=== PATIENT | male | born 1950 | race Caucasian/White ===

== ENCOUNTER → 2019-07-06 | Outpatient (CLI) | payer OTHER ==
--- NOTE | 2019-07-06 16:00 | MR ---
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 Patient motion somewhat limits the examination. FINDINGS: Diffusion weighted images demonstrate no evidence of a recent infarct or other diffusion ab normality. There is no extra-axial fluid collection. The ventricular system and cisternal spaces are symmetrically prominent compatible with age-related volume loss. There is question postsurgical royal ge of the right parietal-occipital region. Slightly inferior and deep to this there is an area of gli osis on T2 axial fat sat and FLAIR and axial fat sat image 19. Few scattered foci of T2/FLAIR hyperin tensity are seen within the periventricular and subcortical white matter, mild burden. These are most commonly on the basis of chronic microangiopathy. Midline structures demonstrate normal morphology. The craniocervical junction appears within normal limits. Post contrast images demonstrate no abnormal enhancement. The dural venous sinuses appear pa tent. The visualized sinuses demonstrate mild mucosal thickening in the ethmoid and left frontal sinu ses. Near complete opacification of the right mastoid air cells and partial opacification of the left mastoid air cells are seen. IMPRESSION: 1. No acute infarct, midline shift or mass effect. 2. Correlate for bilateral mastoiditis with point tenderness. Mild paranasal sinus disease. 3. No gross evidence of intracranial metastasis although patient motion limits the postcontrast image s.
== END | disposition home or self-care (01) ==
LOC: RADMRIMAIN 14:40
PROVIDERS: ATTEND Internal Medicine Hematology & Oncology
DX: C38.8 Malignant neoplasm of overlapping sites of heart, mediastinum and pleura (principal)
CPT/HCPCS: 70553; A9585

== ENCOUNTER → 2019-07-07 | Outpatient (CLI) | payer OTHER | END | disposition home or self-care (01) | LOC: LABWHC1 10:24 | PROVIDERS: ATTEND Internal Medicine Critical Care Medicine | DX: U07.1 COVID-19 (principal) | CPT/HCPCS: 87635 ==

== ENCOUNTER 2019-07-09 10:47 | Day surgery (SDC) | payer OTHER ==
[2019-07-06 12:26] VITALS: BMI 27.5
[~2019-07-09 10:47] MED LIST: HYDROmorphone 0.5 MG/0.5 ML SYRINGE IVP PRN; LACTATED RINGERS 1,000 ML IV SCH; LIDOCAINE 1% (10MG/ML) FOR IV START INTRADERMA PRN; MIDAZOLAM 2 MG/2 ML VIAL IV PRN
[2019-07-09 11:47] LABS: Glucose,Whole Blood 163 mg/dL (75-99)
[2019-07-09] MEDS ORDERED: LIDOCAINE VISCOUS 300 MG/15 ML CUP MUCOUS MEM ONE (12:00)
[2019-07-09] MEDS ORDERED: SODIUM CHLORIDE 0.9% 1,000 ML IV SCH (12:00)
[2019-07-09] MEDS ORDERED: ALBUTEROL NEB (CONC) 2.5 MG/0.5 ML INHALATION ONE (12:00)
[2019-07-09] MEDS ORDERED: LIDOCAINE 2% (PF) 20 MG/ML 5 ML VIAL INHALATION ONE (12:00)
[2019-07-09] MEDS ORDERED: SUCCINYLCHOLINE CHLORIDE 100 MG/5 ML SYR IV ONE (13:19)
[2019-07-09] MEDS ORDERED: PROPOFOL 10 MG/ML 20 ML VIAL IV ONE (13:19)
--- NOTE | 2019-07-09 13:58 | P.PCN ---
Date of Procedure: 07/09/19 Preoperative Diagnosis: Mediastinal mass Postoperative Diagnosis: Mediastinal mass Procedure(s) Performed: Flexible bronchoscopy, transbronchial needle aspirate Anesthesia: RAJESH Surgeon: Mya Oconnor Estimated Blood Loss (ml): 5 Pathology: other Condition: stable Disposition: same day Operative Findings: This procedure was done in the endoscopy suite. The procedure was done under general anesthesia. The patient was intubated and placed on mechanical ventilation. The procedure was done as the patient was being adequately oxygenated and ventilated. After achieving adequate anesthesia, the flexible bronchoscope was introduced through the orotracheal tube and was advanced into the lower trachea. The distal trachea was patent. It was extrinsically compressed along the anterior and the lateral wall causing some degree of narrowing in the order of 10-20%. Lisa and the right mainstem bronchus was also affected with this where the lisa was slightly anatomically distorted and the anterior wall of the right mainstem bronchus was also extrinsically compressed. A quick airway examination was done and the bronchoscope was moved into the bilateral mainstem bronchi, right upper lobe bronchus regular lobe bronchus and right lower lobe bronchus and the left upper lobe bronchus of the left lower lobe bronchus and all of these airways were visualized. No endobronchial tumors seen. The bronchoscope was then moved to the distal trachea and using a 19-gauge cytology and 21-gauge histology needles, transbronchial needle aspirate of the paratracheal mass was done at the level of the lisa and 1 gradually space above the lisa. Several passes were obtained. The samples were inspected by pathology at the bedside and it was lesion on. At that point, and after obtaining adequate samples, therapeutic airway suctioning was done and the bronchoscope was removed and the patient was extubated. The patient following that was transferred recovery for further he monitoring. The patient will be discharged home to be followed with me in the office on outpatient basis within the next few days.
[2019-07-09 14:12] VITALS: TEMP 98.4
[2019-07-09 14:35] VITALS: RESP 18
[2019-07-09 14:49] VITALS: BP 105/59; PULSE 83
== END 2019-07-09 15:11 | disposition home or self-care (01) ==
LOC: ORWHC2ENDO 10:47
PROVIDERS: ATTEND Internal Medicine Critical Care Medicine
DX: C38.3 Malignant neoplasm of mediastinum, part unspecified (principal); E11.9 Type 2 diabetes mellitus without complications; I10 Essential (primary) hypertension; F17.210 Nicotine dependence, cigarettes, uncomplicated; Z79.82 Long term (current) use of aspirin; Z79.84 Long term (current) use of oral hypoglycemic drugs; Z79.899 Other long term (current) drug therapy; Z90.89 Acquired absence of other organs; Z98.1 Arthrodesis status; Z96.651 Presence of right artificial knee joint; Z98.890 Other specified postprocedural states; Z80.6 Family history of leukemia
CPT/HCPCS: 94640; 88305; 88173; 88342; 88341; 31629; J0330; J2704; J2001; 31633

== ENCOUNTER → 2019-07-20 | Outpatient (CLI) | payer OTHER ==
--- NOTE | 2019-07-20 12:11 | PE ---
Nuclear medicine PET/CT HISTORY: C 34.11, initial Patient received 11 mCi F-18 FDG intravenously in delayed scanning was performed from the skull base to the mid thighs. Localization and attenuation correction CT scan was performed. Correlation to brain MR 07/06/2019 Neck and chest: There is a supraclavicular node on the right which shows associated hypermetabolic up take, SUV is 5.9. Small right pleural effusion is present. Large mediastinal mass is present, there i s an infiltrative appearance extending within the superior mediastinum, anterior mediastinum, retroca jim pretracheal mediastinum, subcarinal location and right hilar region. SUV is 6.9. There are dense coronary artery calcifications. There is a pericardial effusion measuring approximately 16 mm in ante rior posterior dimension. ABDOMEN: The right adrenal gland is enlarged measuring approximately 3 cm, there is associated hyperm etabolic uptake, SUV is 3.8. Diverticular changes are associated with the colon. Prostate is enlarged . No evident retroperitoneal adenopathy. Probable cortical cyst associated with the posterior aspect of the right kidney. No evident liver mass. There is no ascites. Osseous structures: At the costovertebral angle on the left there is a focus of hypermetabolic uptake within the vertebral body, SUV is 2.6. Left fourth anterior rib also shows hypermetabolic uptake, th ere is irregular contour present on axial image 92, SUV is 3.3. L1 vertebral body shows hypermetaboli c uptake anteriorly to the right of midline, SUV is 4, L2 also shows mild metabolic uptake SUV 3.4, L 5 shows hypermetabolic uptake, SUV 4.3. Mild uptake is present within the right femoral neck, SUV is 2.5. IMPRESSION: Metastatic disease to the bones is favored. Pleural and pericardial effusion, coronary ar rosa maria disease.
== END | disposition home or self-care (01) ==
LOC: RADPETMAIN 07:19
PROVIDERS: ATTEND Radiology Radiation Oncology
DX: J90 Pleural effusion, not elsewhere classified (principal); I31.3 Pericardial effusion (noninflammatory); I25.10 Atherosclerotic heart disease of native coronary artery without angina pectoris; C34.11 Malignant neoplasm of upper lobe, right bronchus or lung
CPT/HCPCS: 78815; A9552

== ENCOUNTER → 2019-08-03 | Outpatient (CLI) | payer OTHER ==
--- NOTE | 2019-08-03 10:31 | MR ---
EXAMINATION TYPE: MR lumbar spine wo/w con DATE OF EXAM: 08/03/2019 COMPARISON: Prior PET/CT 07/20/2019 HISTORY: Back Pain, Hx of Lung CA. PET CT showed Abnormality in Lumbar area. Prior Back Surgery in 72 TECHNIQUE: Multiplanar, multisequence images of the lumbar spine were acquired utilizing [address] gadolinium contrast. There is abnormal signal involving the L5 vertebral body diffusely, the bulk of the L2 vertebral body , L1 vertebral body and T12 vertebral body which shows intermediate signal on T1-weighted images and lower signal on T2-weighted sequences. Some mild enhancement is present following contrast administra tion. There is multilevel spondylosis. Loss of disc height signal is greatest at L3-4, L2-3 and L1-2. Anterolisthesis grade 1 L5-S1, there is bilateral spondylolysis at L5. Vacuum phenomenon is present at L5-S1 with some loss of disc height and signal. Endplate discogenic marrow signal changes are also present. L1-L2: Normal disc appearance without desiccation. No herniation, protrusion or disc bulging. No c anal stenosis is present. Foramina are patent bilaterally. L2-L3: There is a posterior broad-based disc bulge present. There is extension laterally to cause doyle e foraminal encroachment on the right. Some hypertrophic changes are present at the facets causing so me minimal posterior mass effect on the thecal sac. No significant spinal stenosis. Small area of anthony or causes anterolateral mass effect on the thecal sac. L3-L4: Normal disc appearance without desiccation. No herniation, protrusion or disc bulging. No ca nal stenosis is present. Foramina are patent bilaterally. Facet arthropathy change with hypertrophy ligamentum flavum causes some posterior lateral mass effect on the thecal sac. Circumferential steam shovel runner ior disc bulge extends laterally and encroaches somewhat on the neural foraminal greater on the left. L4-L5: Normal disc appearance without desiccation. No herniation, protrusion or disc bulging. No ca nal stenosis is present. Foramina are patent bilaterally. There is some facet arthropathy change. L5-S1: Listhesis contributes to cause some bilateral foraminal encroachment. There is hypertrophic ch carlos of the facets. No significant spinal stenosis or evident disc herniation. Suspect postop changes or ankylosis, bony fusion of the spinous process level may be present posteriorly. There is involvem ent of tumor involving the posterior elements. Lumbar segments are intact. No paraspinal masses are identified. Conus medullaris has a normal appe arance. IMPRESSION: Metastatic disease. Degenerative disc disease, facet arthropathy, spondylolysis and spond ylolisthesis, multilevel foraminal encroachment.
== END | disposition home or self-care (01) ==
LOC: RADMRIMAIN 09:24
PROVIDERS: ATTEND Radiology Radiation Oncology
DX: M51.36 Other intervertebral disc degeneration, lumbar region (principal); M43.16 Spondylolisthesis, lumbar region; M46.96 Unspecified inflammatory spondylopathy, lumbar region; C77.9 Secondary and unspecified malignant neoplasm of lymph node, unspecified; C34.11 Malignant neoplasm of upper lobe, right bronchus or lung
CPT/HCPCS: 72158; A9585

== ENCOUNTER → 2019-08-06 | Outpatient (CLI) | payer OTHER ==
--- NOTE | 2019-08-06 10:12 | US ---
EXAMINATION TYPE: US venous doppler duplex UE RT DATE OF EXAM: 08/06/2019 COMPARISON: NONE CLINICAL HISTORY: 69-year-old male R22.31swelling right arm, M79.621 pain right arm. Right arm pain x couple days, patient on blood thinners. TECHNIQUE: Grayscale, color doppler, spectral doppler imaging performed of the deep veins of the rig ht upper extremity. FINDINGS: SIDE PERFORMED: Right There is normal flow, compressibility and vascular waveforms. Right Arm: Appears negative for DVT IMPRESSION: No evidence for DVT within the right upper extremity.
== END | disposition home or self-care (01) ==
LOC: RADUSWWP 09:39
PROVIDERS: ATTEND Radiology Radiation Oncology
DX: M79.621 Pain in right upper arm (principal); R22.31 Localized swelling, mass and lump, right upper limb; C34.11 Malignant neoplasm of upper lobe, right bronchus or lung; C77.9 Secondary and unspecified malignant neoplasm of lymph node, unspecified

== ENCOUNTER → 2019-09-05 | Outpatient (CLI) | payer OTHER ==
[2019-09-05 11:50] LABS: African American GFR (CKD) >90 (>60 ml/min/1.73 sqM); Blood Urea Nitrogen 15 mg/dL (9-20); Non-African American GFR(CKD) >90 (>60 ml/min/1.73 sqM)
--- NOTE | 2019-09-05 14:20 | CT ---
EXAMINATION TYPE: CT chest w con DATE OF EXAM: 09/05/2019 COMPARISON: PET/CT 07/20/2019, CT 06/29/2019 from outside institution HISTORY: Follow up Lung cancer CT DLP: 301.1 mGycm Automated exposure control for dose reduction was used. CONTRAST: CT scan of the chest is performed with IV Contrast, patient injected with 100 mL of Isovue 300. FINDINGS: LUNGS: The lungs are grossly clear, there is no concerning parenchymal mass or nodule identified. T here is no pleural effusion or pneumothorax seen. The tracheobronchial tree is patent. MEDIASTINUM: There is confluent density in the superior mediastinum, mass effect on the superior vena cava as the abnormal density extends inferiorly to the retrocaval pretracheal region, there is impro vement in the abnormal soft tissue density in the subcarinal location and right paratracheal location as compared to prior exam, volume is decreased. There are coronary calcifications. AORTA: No additional significant abnormality is seen. OTHER: Right adrenal mass is again noted and show similar size. There is a sclerotic focus within the T1 vertebral body, irregular appearance to the left fourth rib anteriorly is again seen IMPRESSION: The patient's mediastinal mass has decreased in volume as compared to prior exam. Metast atic disease to bone.
== END | disposition home or self-care (01) ==
LOC: RADCTMAIN 11:13
PROVIDERS: ATTEND Internal Medicine Hematology & Oncology
DX: R22.2 Localized swelling, mass and lump, trunk (principal); C79.51 Secondary malignant neoplasm of bone; C34.91 Malignant neoplasm of unspecified part of right bronchus or lung
CPT/HCPCS: 82565; 84520; 71260; 36415; Q9967

== ENCOUNTER 2019-09-14 08:48 | Inpatient (IN) | payer MEDICARE ==
[2019-09-14] MEDS ORDERED: SODIUM CHLORIDE 0.9% 1,000 ML IV STA ×2 (09:01)
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
[2019-09-14 10:08] LABS: ALT 10 U/L (4-49); AST 19 U/L (17-59); African American GFR (CKD) >90 (>60 ml/min/1.73 sqM); Albumin 3.3 g/dL (3.5-5.0); Alkaline Phosphatase 87 U/L (38-126); Anion Gap 10 mmol/L; Blood Urea Nitrogen 12 mg/dL (9-20); Carbon Dioxide 33 mmol/L (22-30); Chloride 93 mmol/L (98-107); Glucose 60 mg/dL (74-99); Non-African American GFR(CKD) >90 (>60 ml/min/1.73 sqM); Sodium 136 mmol/L (137-145); Total Bilirubin 0.6 mg/dL (0.2-1.3); Total Protein 5.7 g/dL (6.3-8.2)
[2019-09-14 10:13] LABS: HCT 26.9 % (39.0-53.0); HGB 9.4 gm/dL (13.0-17.5); INR 1.1 (<1.2); MCH 32.8 pg (25.0-35.0); MCHC 34.9 g/dL (31.0-37.0); MCV 94.2 fL (80.0-100.0); Mean Platelet Volume 8.8; Partial Thromboplastin Time 25.7 sec (22.0-30.0); Platelet Count 228 k/uL (150-450); RBC 2.86 m/uL (4.30-5.90); RDW 15.1 % (11.5-15.5); WBC 15.4 k/uL (3.8-10.6)
[2019-09-14 10:19] LABS: Calcium 5.9 mg/dL (8.4-10.2); Magnesium 0.4 mg/dL (1.6-2.3); Potassium 2.2 mmol/L (3.5-5.1)
[2019-09-14] MEDS ORDERED: Potassium Replacement Protocol 1 EACH MISC MISCELLANE PRN (10:22)
[2019-09-14] MEDS ORDERED: POTASSIUM CHLORIDE ER 20 MEQ TAB.ER PO STA (10:23)
[2019-09-14] MEDS ORDERED: CALCIUM GLUCONATE 1 GM in SODIUM CHLORIDE 0.9% 100 ML IVPB ONE (10:25)
[2019-09-14 10:40] LABS: Band Neutrophils % 2 %; Basophils # (M) 0.15 k/uL (0-0.2); Eosinophils # (M) 0.15 k/uL (0-0.7); Lymphocytes # (M) 0.31 k/uL (1.0-4.8); Metamyelocytes # (M) 0.31 k/uL (0); Metamyelocytes % 2 %; Monocytes # (M) 0.77 k/uL (0-1.0); Myelocytes # (M) 0.31 k/uL (0); Myelocytes % 2 %; Neutrophils % (M) 87 %; Nucleated Red Blood Cells 0 /100 WBC (0-0); Total Cells Counted 200
[2019-09-14] MEDS ORDERED: ONDANSETRON 4 MG/2 ML VIAL IVP PRN (11:10)
[2019-09-14] MEDS ORDERED: ACETAMINOPHEN TAB 325 MG TAB PO PRN (11:10)
[2019-09-14] MEDS ORDERED: MORPHINE SULFATE 4 MG/ML SYRINGE IV PRN (11:10)
[2019-09-14] MEDS ORDERED: NALOXONE 0.4 MG/ML 1 ML VIAL IV PRN (11:10)
[2019-09-14] MEDS ORDERED: IBUPROFEN 400 MG TAB PO PRN (11:10)
[2019-09-14] MEDS: MAGNESIUM SULFATE-D5W PMX 1 GM in DEXTROSE/WATER 1 100ML.BAG IVPB SCH ×2 (11:12→14:07)
[2019-09-14] MEDS: POTASSIUM CHLORIDE 10 MEQ in WATER FOR INJECTION 1 100ML.BAG IVPB SCH ×2 (12:04→14:15)
[2019-09-14] MEDS ORDERED: ONDANSETRON 4 MG TAB PO PRN (12:51)
[2019-09-14] MEDS ORDERED: LORazepam 1 MG TAB PO PRN (12:51)
[2019-09-14] MEDS ORDERED: MAG HYDROX/AL HYDROX/SIMETH 30 ML CUP PO PRN (12:55)
[2019-09-14] MEDS ORDERED: LACTULOSE 20 GM/30 ML CUP PO PRN (12:55)
[2019-09-14] MEDS ORDERED: TEMAZEPAM 15 MG CAP PO PRN (12:55)
[2019-09-14] MEDS ORDERED: MAGNESIUM HYDROXIDE 2,400 MG/10 ML CUP PO PRN (12:55)
[2019-09-14] MEDS ORDERED: NA PHOS,M-B/NA PHOS,DI-BA 133 ML ENEMA RECTAL PRN (12:55)
[2019-09-14] MEDS ORDERED: ALPRAZolam 0.25 MG TAB PO PRN (12:55)
[2019-09-14] MEDS ORDERED: CALCIUM CARBONATE 500 MG CHEWABLE PO PRN (12:55)
[2019-09-14] MEDS: POTASSIUM CHLORIDE ER 20 MEQ TAB.ER PO SCH ×5 (14:07→23:47)
[2019-09-14] MEDS: MAGNESIUM OXIDE 400 MG TAB PO SCH ×3 (14:07→21:25)
[2019-09-14] MEDS: ENOXAPARIN 40 MG/0.4 ML SYRINGE SQ SCH (14:07)
[2019-09-14] MEDS: SODIUM CHLORIDE 0.9% 1,000 ML IV SCH ×2 (14:13→23:51)
[2019-09-14 17:14] LABS: Glucose,Whole Blood 102 mg/dL (75-99)
[2019-09-14] MEDS: HYDROcodone/APAP 5-325MG 1 EACH TAB PO PRN (19:32)
[2019-09-14 19:41] LABS: Appearance,Urine Clear (Clear); Bilirubin,Urine Negative (Negative); Blood,Urine Negative (Negative); Color,Urine Light Yellow; Glucose,Urine (UA) 4+ (Negative); Ketones,Urine Negative (Negative); Leukocyte Esterase,Urine Negative (Negative); Nitrite,Urine Negative (Negative); PH, Urine 6.5 (5.0-8.0); Protein,Urine Trace (Negative); Urobilinogen,Urine <2.0 mg/dL (<2.0)
--- NOTE | 2019-09-14 20:10 | P.HPIM ---
History of Present Illness H&P Date: 09/14/19 Chief Complaint: Abnormal electrolytes History of presenting complaint: This is a very pleasant 69-year-old patient of Dr. Celia Duarte. Chronic stable medical conditions include coronary artery disease with stent, diabetes, hypertension, hyperlipidemia. 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 Patient is computed radiation [address] Stuart Abreu. Patient getting chemotherapy 3 times a week. Patient's appetite is gone down. Has lost about 50 pounds of weight. Bowel movements are okay. Lap hyun done as an outpatient revealed multiple abnormalities including hypokalemia, hypomagnesemia hypocalcemia hence he was admitted to the ER. 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 Patient has done drugs including cocaine and LSD, he quit them 20 years ago Physical examination: VITAL SIGNS: 98, 85, 18, 135/81, 99% room air GENERAL: BMI 21.9, sitting up in bed, tired. EYES: Pupils equal. Conjunctiva palel. HEENT: External appearance of nose and ears normal, oral cavity grossly hortensia, decreased scalp hair l. NECK: JVD not raised; masses not palpable. HEART: First and second heart sounds are normal; no edema. LUNGS: Respiratory rate increased, decreased breath sounds. ABDOMEN: Soft, nontender, liver spleen not palpable, no masses palpable. PSYCH: Alert and oriented x3; mood and affect a bit tiredl. MUSCULOSKELETAL-evidence of arthritis in the hand NEUROLOGICAL: Cranial nerves grossly intact; no facial asymmetry, power and sensation grossly intact. LYMPHATICS: No lymph nodes palpable in the axilla and neck INVESTIGATIONS, reviewed in the clinical context: White count 15.4 hemoglobin 9.4 platelets 228 increased neutrophils potassium 2.2 creatinine 0.71 glucose 60 5.9 Admission 0.4 Albumin 3.3 EKG tracing personally reviewed by ia-some nonspecific changes Assessment: -Multiple levels showed abnormalities likely from underlying chemotherapy -Severe hypokalemia -Severe hypomagnesemia Hypocalcemia -Coronary artery disease with stent -Diabetes mellitus type 2 -Hyperlipidemia -Essential hypertension -Small cell lung cancer with SVC compression treated with chemotherapy and fin ished a course of radiation 3 weeks ago -Primary osteoarthritis -Chronic nicotine dependence patient cigarette smoker Plan: Patient electrolytes are being replaced. Repeat follow-up levels. Home me dications resumed. Given a nicotine patch. Care was discussed with the patient. Question were answered. Lovenox for DVT prophylaxis Past Medical History Past Medical History: Coronary Artery Disease (CAD), Cancer, Chest Pain / Angina, Diabetes Mellitus, Hyperlipidemia, Hypertension, Myocardial Infarction (ND) Additional Past Medical History / Comment(s): Small cell lung cancer/mediastinal mass with SVC compression-treated with chemotherapy in July 2019 and radiation just completed about 3 weeks ago-pt states he is to restart chemo in one week, NIDDM type II, arthritis in bilateral hands Last Myocardial Infarction Date:: 2013 History of Any Multi-Drug Resistant Organisms: None Reported Past Surgical History: Back Surgery, Heart Catheterization With Stent, Joint Replacement, Tonsillectomy Additional Past Surgical History / Comment(s): Spinal fusion in 1970s, lumbar epidural injections, R shoulder rotator cuff repair, R total knee arthroplasty, skull plate d/t injury, PCIs with stents, colonoscopy, 07/09/19 bronch with bi opsy. Past Anesthesia/Blood Transfusion Reactions: No Reported Reaction Date of Last Stent Placement:: 2013 Smoking Status: Current every day smoker - Past Family History Father Family Medical History: Cancer Additional Family Medical History / Comment(s): AT 84. MULTIPLE MYELOMA. Mother Family Medical History: Dementia Additional Family Medical History / Comment(s): AT AGE 85 Brother(s) Family Medical History: Cancer Additional Family Medical History / Comment(s): LEUKEMIA. Medications and Allergies Home Medications Medication Instructions Recorded Confirmed Type Clopidogrel [Plavix] 75 mg PO DAILY 01/11/14 09/14/19 History Lisinopril [Zestril] 10 mg PO DAILY 01/11/14 09/14/19 History glipiZIDE [Glucotrol] 10 mg PO BID 01/11/14 09/14/19 History Aspirin [Adult Low Dose Aspirin EC] 81 mg PO DAILY 07/06/19 09/14/19 History Atorvastatin [Lipitor] 40 mg PO HS 07/06/19 09/14/19 History Dapagliflozin Propanediol [Farxiga] 10 mg PO DAILY 07/06/19 09/14/19 History Fish Oil/Dha/Epa [Fish Oil 1,200 4,800 mg PO DAILY 07/06/19 09/14/19 History mg Fish Oil] Metoprolol Tartrate [Lopressor] 50 mg PO HS 07/06/19 09/14/19 History metFORMIN HCL 1,000 mg PO BID 07/06/19 09/14/19 History sitaGLIPtin [Januvia] 100 mg PO DAILY 07/06/19 09/14/19 History LORazepam [Ativan] 1 mg PO TID PRN 09/14/19 09/14/19 History Ondansetron [Zofran] 4 mg PO Q8HR PRN 09/14/19 09/14/19 History Sennosides/Docusate Sodium [Senna 1 - 2 tab PO BID PRN 09/14/19 09/14/19 History Plus 8.6-50 mg Softgel] Zolpidem Tartrate [Ambien] 10 mg PO HS 09/14/19 09/14/19 History Allergies Allergy/AdvReac Type Severity Reaction Status Date / Time No Known Allergies Allergy Verified 09/14/19 09:32 Physical Exam Vitals: Vital Signs Temp Pulse Resp BP Pulse Ox 09/14/19 08:50 98.0 F 85 18 135/81 99 Intake and Output 09/13/19 09/14/19 09/14/19 22:59 06:59 14:59 Other: Weight 81.647 kg Results CBC & Chem 7: 09/14/19 09:31 09/14/19 09:31 Labs: Abnormal Lab Results - Last 24 Hours (Table) 09/14/19 09/14/19 Range/Units 09:31 09:31 WBC 15.4 H (3.8-10.6) k/uL RBC 2.86 L (4.30-5.90) m/uL Hgb 9.4 L (13.0-17.5) gm/dL Hct 26.9 L (39.0-53.0) % Neutrophils # (Manual) 13.70 H (1.3-7.7) k/uL Lymphocytes # (Manual) 0.31 L (1.0-4.8) k/uL Metamyelocytes # (Man) 0.31 H (0) k/uL Myelocytes # (Manual) 0.31 H (0) k/uL Sodium 136 L (137-145) mmol/L Potassium 2.2 L* (3.5-5.1) mmol/L Chloride 93 L (98-107) mmol/L Carbon Dioxide 33 H (22-30) mmol/L Glucose 60 L (74-99) mg/dL Calcium 5.9 L* (8.4-10.2) mg/dL Magnesium 0.4 L* (1.6-2.3) mg/dL Total Protein 5.7 L (6.3-8.2) g/dL Albumin 3.3 L (3.5-5.0) g/dL Thrombosis Risk Factor Assmnt - Choose All That Apply Any of the Below Risk Factors Present?: Yes Other Risk Factors: Yes Each Risk Factor Represents 2 Points: Age 61-74 years, Malignancy Other congenital or acquired thrombophilia - If yes, enter type in comment: No Thrombosis Risk Factor Assessment Total Risk Factor Score: 4 Thrombosis Risk Factor Assessment Level: Moderate Risk
[2019-09-14 20:40] LABS: Magnesium 0.8 mg/dL (1.6-2.3); Potassium 2.7 mmol/L (3.5-5.1)
[2019-09-14 20:47] LABS: Glucose,Whole Blood 109 mg/dL (75-99)
[2019-09-14] MEDS ORDERED: METOPROLOL TARTRATE 50 MG TAB PO SCH (21:00)
[2019-09-14] MEDS ORDERED: ATORVASTATIN 40 MG TAB PO SCH (21:00)
[2019-09-14] MEDS ORDERED: ZOLPIDEM 10 MG TAB PO SCH (21:00)
[2019-09-14] MEDS ORDERED: MAGNESIUM SULFATE-D5W PMX 1 GM in DEXTROSE/WATER 1 100ML.BAG IVPB ONE (21:01)
[2019-09-14] MEDS: glipiZIDE 10 MG TAB PO SCH (21:23)
[2019-09-14] MEDS: metFORMIN 500 MG TAB PO SCH (21:23)
[2019-09-14] MEDS: CALCIUM CARBONATE LIQUID 500 MG/5 ML CUP PO SCH (21:23)
[2019-09-15] MEDS: HYDROcodone/APAP 5-325MG 1 EACH TAB PO PRN (01:10)
[2019-09-15] MEDS: POTASSIUM CHLORIDE ER 20 MEQ TAB.ER PO SCH ×3 (02:25→04:36)
[2019-09-15 07:25] LABS: Glucose,Whole Blood 106 mg/dL (75-99)
[2019-09-15 07:33] LABS: African American GFR (CKD) >90 (>60 ml/min/1.73 sqM); Anion Gap 6 mmol/L; Blood Urea Nitrogen 7 mg/dL (9-20); Carbon Dioxide 29 mmol/L (22-30); Chloride 101 mmol/L (98-107); Glucose 78 mg/dL (74-99); Non-African American GFR(CKD) >90 (>60 ml/min/1.73 sqM); Potassium 3.8 mmol/L (3.5-5.1); Sodium 136 mmol/L (137-145)
[2019-09-15] MEDS ORDERED: POTASSIUM CHLORIDE ER 20 MEQ TAB.ER PO STA (07:49)
[2019-09-15] MEDS: ENOXAPARIN 40 MG/0.4 ML SYRINGE SQ SCH (08:32)
[2019-09-15] MEDS: metFORMIN 500 MG TAB PO SCH (08:33)
[2019-09-15] MEDS: MAGNESIUM OXIDE 400 MG TAB PO SCH (08:33)
[2019-09-15] MEDS: glipiZIDE 10 MG TAB PO SCH (08:33)
[2019-09-15] MEDS: SODIUM CHLORIDE 0.9% 1,000 ML IV SCH (08:43)
[2019-09-15] MEDS: CALCIUM CARBONATE LIQUID 500 MG/5 ML CUP PO SCH ×2 (08:45→13:31)
[2019-09-15] MEDS ORDERED: ASPIRIN 81 MG PO SCH (09:00)
[2019-09-15] MEDS ORDERED: LISINOPRIL 10 MG TAB PO SCH (09:00)
[2019-09-15] MEDS ORDERED: CLOPIDOGREL 75 MG TAB PO SCH (09:00)
[2019-09-15] MEDS ORDERED: LINAGLIPTIN 5 MG TABLET PO SCH (09:00)
[2019-09-15] MEDS ORDERED: NON FORMULARY DRUG (Dapagliflozin Propanediol [Farxiga] 10 MG) PO SCH (09:00)
[2019-09-15] MEDS ORDERED: CALCIUM GLUCONATE 1 GM in SODIUM CHLORIDE 0.9% 100 ML IVPB ONE (09:00)
[2019-09-15] MEDS ORDERED: MAGNESIUM SULFATE MG 6,000 MG in SODIUM CHLORIDE 0.9% 50 ML IVPB ONE (11:28)
[2019-09-15] MEDS: MAGNESIUM SULFATE-D5W PMX 1 GM in DEXTROSE/WATER 1 100ML.BAG IVPB SCH ×2 (11:49→13:39)
[2019-09-15 12:49] LABS: Glucose,Whole Blood 204 mg/dL (75-99)
[2019-09-15 13:12] VITALS: BP 162/80; PULSE 83; RESP 16; TEMP 97.5
[2019-09-15 14:09] VITALS: BMI 21.9
--- NOTE | 2019-09-15 23:32 | P.DS ---
Providers Date of admission: 09/14/19 10:54 Expected date of discharge: 09/15/19 Attending physician: Raphael Carrington Primary care physician: Sruthi Duarte [facility] Course: Chief Complaint: Abnormal electrolytes History of presenting complaint: This is a very pleasant 69-year-old patient of Dr. Celia Duarte. Chronic stable medical conditions include coronary artery disease with stent, diabetes, hypertension, hyperlipidemia. 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 Patient is computed radiation [address] Stuart Abreu. Patient getting chemotherapy 3 times a week. Patient's appetite is gone down. Has lost about 50 pounds of weight. Bowel movements are okay. Labs done as an outpatient revealed multiple abnormalities including hypokalemia, hypomagnesemia hypocalcemia hence he was admitted to the ER. Correction was doing a potassium calcium and magnesium. Today-patient did much better. Discussed with him. Very eager to go home. Physical examination: VITAL SIGNS: 97.5, 83, 16, 162/80, 97% room air GENERAL: Sitting up, comfortable EYES: Pupils equal. Conjunctiva palel. HEENT: External appearance of nose and ears normal, oral cavity grossly hortensia, decreased scalp hair l. NECK: JVD not raised; masses not palpable. HEART: First and second heart sounds are normal; no edema. LUNGS: Respiratory rate increased, decreased breath sounds. ABDOMEN: Soft, nontender, liver spleen not palpable, no masses palpable. PSYCH: Alert and oriented x3; mood and affect a bit tiredl. MUSCULOSKELETAL-evidence of arthritis in the hand INVESTIGATIONS, reviewed in the clinical context: Potassium 3.8 creatinine 0.62 magnesium 1.0 Previous testing White count 15.4 hemoglobin 9.4 platelets 228 increased neutrophils potassium 2.2 creatinine 0.71 glucose 60 5.9 Admission 0.4 Albumin 3.3 EKG tracing personally reviewed by me-some nonspecific changes Assessment: -Severe hypokalemia -Severe hypomagnesemia -Hypocalcemia -Coronary artery disease with stent -Diabetes mellitus type 2 -Hyperlipidemia -Essential hypertension -Small cell lung cancer with SVC compression treated with chemotherapy and finished a course of radiation 3 weeks ago -Primary osteoarthritis -Chronic nicotine dependence patient cigarette smoker Disposition: Home Labs: BMP, magnesium-3 days Patient Condition at Discharge: Stable Plan - Discharge Summary Discharge Rx Participant: No New Discharge Prescriptions: New Calcium Carbonate/Vitamin D3 [Calcium 500-Vit D3 200 Tablet] 1 each PO DAILY #30 tablet Magnesium Oxide [Mag-Ox] 250 mg PO TID #30 tablet Continue glipiZIDE [Glucotrol] 10 mg PO BID Lisinopril [Zestril] 10 mg PO DAILY Clopidogrel [Plavix] 75 mg PO DAILY Metoprolol Tartrate [Lopressor] 50 mg PO HS sitaGLIPtin [Januvia] 100 mg PO DAILY metFORMIN HCL 1,000 mg PO BID Atorvastatin [Lipitor] 40 mg PO HS Fish Oil/Dha/Epa [Fish Oil 1,200 mg Fish Oil] 4,800 mg PO DAILY Dapagliflozin Propanediol [Farxiga] 10 mg PO DAILY Aspirin [Adult Low Dose Aspirin EC] 81 mg PO DAILY LORazepam [Ativan] 1 mg PO TID PRN PRN Reason: Nausea Zolpidem Tartrate [Ambien] 10 mg PO HS Sennosides/Docusate Sodium [Senna Plus 8.6-50 mg Softgel] 1 - 2 tab PO BID PRN PRN Reason: Constipation Ondansetron [Zofran] 4 mg PO Q8HR PRN PRN Reason: Nausea Discharge Medication List Clopidogrel [Plavix] 75 mg PO DAILY 01/11/14 [History] Lisinopril [Zestril] 10 mg PO DAILY 01/11/14 [History] glipiZIDE [Glucotrol] 10 mg PO BID 01/11/14 [History] Aspirin [Adult Low Dose Aspirin EC] 81 mg PO DAILY 07/06/19 [History] Atorvastatin [Lipitor] 40 mg PO HS 07/06/19 [History] Dapagliflozin Propanediol [Farxiga] 10 mg PO DAILY 07/06/19 [History] Fish Oil/Dha/Epa [Fish Oil 1,200 mg Fish Oil] 4,800 mg PO DAILY 07/06/19 [Hist ory] Metoprolol Tartrate [Lopressor] 50 mg PO HS 07/06/19 [History] metFORMIN HCL 1,000 mg PO BID 07/06/19 [History] sitaGLIPtin [Januvia] 100 mg PO DAILY 07/06/19 [History] LORazepam [Ativan] 1 mg PO TID PRN 09/14/19 [History] Ondansetron [Zofran] 4 mg PO Q8HR PRN 09/14/19 [History] Sennosides/Docusate Sodium [Senna Plus 8.6-50 mg Softgel] 1 - 2 tab PO BID PRN 09/14/19 [History] Zolpidem Tartrate [Ambien] 10 mg PO HS 09/14/19 [History] Calcium Carbonate/Vitamin D3 [Calcium 500-Vit D3 200 Tablet] 1 each PO DAILY #30 tablet 09/15/19 [Rx] Magnesium Oxide [Mag-Ox] 250 mg PO TID #30 tablet 09/15/19 [Rx] Follow up Appointment(s)/Referral(s): Luis Patrick MD [STAFF PHYSICIAN] - 09/18/19 Sruthi Duarte MD [Primary Care Provider] - 1-2 days Patient Instructions/Handouts: Calcium/Vitamin D Supplement (By mouth), Magnesium Oxide (By mouth) Activity/Diet/Wound Care/Special Instructions: bmp/magnesium (labwork) - 3 days Diet as tolerated Activity as tolerated Discharge Disposition: HOME SELF-CARE
== END 2019-09-15 14:26 | disposition home or self-care (01) | DRG 641 ==
LOC: EC 08:48 → 5NMEDONC 10:54
PROVIDERS: ADMIT Hospitalist; ATTEND Hospitalist
DX: E87.6 Hypokalemia (principal); C34.90 Malignant neoplasm of unspecified part of unspecified bronchus or lung; Z11.59 Encounter for screening for other viral diseases; E83.51 Hypocalcemia; E11.9 Type 2 diabetes mellitus without complications; E83.42 Hypomagnesemia; I25.10 Atherosclerotic heart disease of native coronary artery without angina pectoris; E78.5 Hyperlipidemia, unspecified; I10 Essential (primary) hypertension; F17.210 Nicotine dependence, cigarettes, uncomplicated; H91.90 Unspecified hearing loss, unspecified ear; M19.049 Primary osteoarthritis, unspecified hand; R11.0 Nausea; K59.00 Constipation, unspecified; T45.1X5A Adverse effect of antineoplastic and immunosuppressive drugs, initial encounter; I25.2 Old myocardial infarction; Z79.02 Long term (current) use of antithrombotics/antiplatelets; Z79.84 Long term (current) use of oral hypoglycemic drugs; Z79.899 Other long term (current) drug therapy; Z79.82 Long term (current) use of aspirin; Z95.5 Presence of coronary angioplasty implant and graft; Z92.3 Personal history of irradiation; Z98.890 Other specified postprocedural states; Z98.1 Arthrodesis status; Z96.651 Presence of right artificial knee joint; Z82.0 Family history of epilepsy and other diseases of the nervous system; Z80.6 Family history of leukemia; Z80.7 Family history of other malignant neoplasms of lymphoid, hematopoietic and related tissues
CPT/HCPCS: 36415; 80048; 80053; 81003; 83735; 84132; 85025; 85610; 85730; 93005; 96361; 96365; 96367; 96368; 99285

== ENCOUNTER → 2019-11-08 | Outpatient (CLI) | payer OTHER, MEDICARE ==
--- NOTE | 2019-11-09 08:39 | MR ---
EXAMINATION TYPE: MR brain wo/w con DATE OF EXAM: 11/08/2019 COMPARISON: 07/06/[address] 07/20/2019 HISTORY: 69-year-old male C34.11, lung Ca TECHNIQUE: Multiplanar, multisequence images of the brain and brainstem were acquired before and aft er administration of 9 mL IV Gadavist. Diffusion weighted imaging is performed. FINDINGS: No evidence for acute infarction, hemorrhage, mass effect, midline shift, herniation, effacement of b mohan cisterns, or extra-axial fluid collection. Some focal 8 x 3 mm dural thickening along the left lateral frontal convexity with corresponding homo geneous enhancement, in retrospect, it remains unchanged from 07/06/2019. Refer to axial image 57a and coronal image 29. Sagittal image 16. Otherwise, no abnormal intracranial enhancing lesions. Dural venous sinuses are patent. Mild generalized cerebral cortical atrophy, unchanged. No hydrocephalus. Major intracranial flow voids are intact. T2/FLAIR weighted sequences show mild scattered burden of right white matter foci in the periventricu lar and deep white matter regions of the cerebral hemispheres. There is also some cortical and subcor tical increased signal at the posterior right parietal lobe underlying some calvarial irregularity, p robable prior craniotomy flap and surgery. Findings are unchanged. Midline structures demonstrate normal morphology. The craniocervical junction is normal. Leftward nasal septal deviation. Moderate to severe mucosal thickening left ethmoid air cells and lef t frontal sinus. Trace mucosal thickening left maxillary sinus. Residual small amount of aerated mast oid air cells, significantly improved from 07/06/2019. Globes are intact. There is some irregularity of the right parietal calvarium, unchanged from prior. IMPRESSION: 1. Focal extra-axial thickening measuring 8 x 3 mm along the left lateral frontal convexity with jere esponding enhancement remains unchanged from 07/06/2019. A small incidental meningioma is favored over a solitary dural metastasis. Additional follow-up as indicated. 2. Stable exam with prior right parietal craniotomy flap and some mild underlying cortical gliosis. M ild scattered burden of chronic small vessel ischemic disease. No other evidence for intracranial met astases. 3. Continued moderate to severe left ethmoid and left frontal sinus disease. 4. Significant improvement in the patient's bilateral mastoid disease. Some minimal opacification rem ains in the right mastoid air cells.
== END | disposition home or self-care (01) ==
LOC: RADMRIMAIN 10:13
PROVIDERS: ATTEND Radiology Radiation Oncology
DX: I67.82 Cerebral ischemia (principal); G93.89 Other specified disorders of brain; C79.51 Secondary malignant neoplasm of bone; C34.11 Malignant neoplasm of upper lobe, right bronchus or lung; C77.9 Secondary and unspecified malignant neoplasm of lymph node, unspecified; Z98.890 Other specified postprocedural states
CPT/HCPCS: 70553; A9585

== ENCOUNTER → 2019-11-09 | Outpatient (CLI) | payer OTHER, MEDICARE ==
[2019-11-09 10:07] LABS: African American GFR (CKD) >90 (>60 ml/min/1.73 sqM); Blood Urea Nitrogen 15 mg/dL (9-20); Non-African American GFR(CKD) >90 (>60 ml/min/1.73 sqM)
--- NOTE | 2019-11-12 08:55 | CT ---
EXAMINATION TYPE: CT ChestAbdPelvis w con DATE OF EXAM: 11/09/2019 COMPARISON: CT chest 09/05/2019. PET/CT 07/20/2019. Outside institution 06/29/[address] HISTORY: follow up lung ca CT DLP: 697.7 mGycm Automated exposure control for dose reduction was used. CONTRAST: CT scan of the chest, abdomen and pelvis is performed with Oral Contrast and with IV Contrast, patien t injected with 100 mL of Isovue 300. FINDINGS: LUNGS: The lungs are grossly clear, there is no concerning parenchymal mass or nodule identified. Th ere are emphysematous changes of the bilateral lung apices. There is no pleural effusion or pneumotho rax seen. The tracheobronchial tree is patent. MEDIASTINUM: There is interval decrease in size of the mediastinal soft tissue mass versus 09/05/2019 a nd 07/20/2019. The superior aspect of the soft tissue component measures approximately 8.8 x 2.9 cm (3 :20), previously 9.7 x 4.0 cm on 09/05/2019 comparison. No hilar lymphadenopathy. Cardiac size normal. Calcified coronary artery disease. No pericardial effusion. No thoracic aortic aneurysm. OTHER: No axillary lymphadenopathy. The right supraclavicular lymph node which had demonstrated hype rmetabolic activity on 07/20/[address] comparison demonstrates interval decrease in size measuring 6 x 4 mm (3:5), previously measuring 9 x 7 mm on 09/05/2019 comparison, and 20 x 14 mm on 07/20/2019 comp arison. LIVER: Normal. BILIARY SYSTEM: Normal. PANCREAS: Normal. SPLEEN: Normal. ADRENALS: Right adrenal mass measures up to 1.9 cm in shortest axial dimension (3:69), previously soraida suring 2.3 cm on 09/05/2019 (3:67) and 07/20/[address], and 2.0 cm om outside institution 06/29/2019 CT chest. Left adrenal gland normal. KIDNEYS: No hydronephrosis. Too small to characterize hypodense lesions of the left kidney. Bilateral renal cysts. BOWEL: No evidence of obstruction or thickening. There is colonic diverticulosis. No acute diverticu litis. PERITONEUM: No free air is visualized. No free fluid. ADENOPATHY: No abdominal pelvic lymphadenopathy. PELVIS: Normal. VASCULATURE: Infrarenal abdominal aortic ectasia measuring 2.6 cm in AP dimension. Mixed calcified a nd noncalcified atheromatous plaque disease. MUSCULOSKELETAL: There is redemonstrated irregular sclerotic appearance of left 4 anteriorly which c orresponded with hypermetabolic activity on 07/20/[address] comparison. Subtle sclerosis of L1 and L 2 corresponding to hypermetabolic activity in 07/20/[address] The hypermetabolic activity of 5 time s not correspond with definitive CT abnormality, and is better appreciated on 07/20/[address] Redem onstrated sclerotic area of the right femoral neck, corresponding with hypermetabolic activity on 07/[address] IMPRESSION: 1. Decreased size of mediastinal mass and right supraclavicular lymph node versus 09/05/2019 CT and 07/[address] comparisons. 2. Mildly decreased size of right adrenal mass, may represent metastatic lung cancer. 3. Redemonstrated osseous metastatic disease. The L5 osseous metastatic disease is better appreciated on PET/CT.
== END | disposition home or self-care (01) ==
LOC: RADCTMAIN 09:22
PROVIDERS: ATTEND Internal Medicine Hematology & Oncology
DX: E27.9 Disorder of adrenal gland, unspecified (principal); C79.51 Secondary malignant neoplasm of bone; C34.91 Malignant neoplasm of unspecified part of right bronchus or lung
CPT/HCPCS: 82565; 84520; 71260; 74177; 36415; Q9967

== ENCOUNTER 2020-01-08 20:49 | Emergency (ER) | payer MEDICARE ==
[2020-01-08 20:54] VITALS: RESP 18
[2020-01-08] MEDS ORDERED: MORPHINE SULFATE 4 MG/ML SYRINGE IM STA (21:19)
--- NOTE | 2020-01-08 22:00 | ED ---
Back Pain [facility] - General Chief Complaint: Back Pain/Injury Stated Complaint: Back pain Time Seen by Provider: 01/08/20 20:57 Source: patient Limitations: no limitations - History of Present Illness Initial Comments: 69-year-old male presenting today for chief complaint of low back pain. Patient states he is on left low back pain because he has metastasis of his lung cancer to his low back. Patient states that times it radiates down his legs he denies having currently but states is happening last night. He states is experiencing this before chronically. Denies loss of sensation weakness. He denies any loss of bowel bladder control urinary retention. Patient denies any fevers. He states that the Adams 7.5 doesn't seem to always help patient states that he is just here for pain management remaining review system negative. Denies leg swelling, chest pain SOB, coolness or pallor of extremities - Related Data Home Medications Medication Instructions Recorded Confirmed Clopidogrel [Plavix] 75 mg PO DAILY 01/11/14 10/19/19 glipiZIDE [Glucotrol] 10 mg PO BID 01/11/14 10/19/19 lisinopriL [Zestril] 10 mg PO DAILY 01/11/14 10/19/19 Aspirin [Adult Low Dose Aspirin EC] 81 mg PO DAILY 07/06/19 10/19/19 Atorvastatin [Lipitor] 40 mg PO HS 07/06/19 10/19/19 Dapagliflozin Propanediol [Farxiga] 10 mg PO DAILY 07/06/19 10/19/19 Fish Oil/Dha/Epa [Fish Oil 1,200 4,800 mg PO DAILY 07/06/19 10/19/19 mg Fish Oil] Metoprolol Tartrate [Lopressor] 50 mg PO HS 07/06/19 10/19/19 metFORMIN HCL 1,000 mg PO BID 07/06/19 10/19/19 sitaGLIPtin [Januvia] 100 mg PO DAILY 07/06/19 10/19/19 LORazepam [Ativan] 1 mg PO TID PRN 09/14/19 10/19/19 Ondansetron [Zofran] 4 mg PO Q8HR PRN 09/14/19 10/19/19 Sennosides/Docusate Sodium [Senna 1 - 2 tab PO BID PRN 09/14/19 10/19/19 Plus 8.6-50 mg Softgel] Zolpidem Tartrate [Ambien] 10 mg PO HS 09/14/19 10/19/19 Potassium 10/03/19 Previous Rx's Medication Instructions Recorded Calcium Carbonate/Vitamin D3 1 each PO DAILY #30 tablet 09/15/19 [Calcium 500-Vit D3 200 Tablet] Magnesium Oxide [Mag-Ox] 250 mg PO TID #30 tablet 09/15/19 Allergies Allergy/AdvReac Type Severity Reaction Status Date / Time No Known Allergies Allergy Verified 01/08/20 20:53 Review of Systems ROS Statement: Those systems with pertinent positive or pertinent negative responses have been documented in the HPI. ROS Other: All systems not noted in ROS Statement are negative. Past Medical History Past Medical History: Coronary Artery Disease (CAD), Cancer, Chest Pain / Angina, Diabetes Mellitus, Hyperlipidemia, Hypertension, Myocardial Infarction ([place]) Additional Past Medical History / Comment(s): Small cell lung cancer/mediastinal mass with SVC compression-treated with chemotherapy in July 2019 and radiation just completed about 3 weeks ago-pt states he is to restart chemo in one week, NIDDM type II, 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 Past Anesthesia/Blood Transfusion Reactions: No Reported Reaction Date of Last Stent Placement:: 2013 Past Psychological History: No Psychological Hx Reported, Anxiety Smoking Status: Current every day smoker Past Alcohol Use History: None Reported Past Drug Use History: Cocaine - Past Family History Father Family Medical History: Cancer Additional Family Medical History / Comment(s): AT 84. MULTIPLE MYELOMA. Mother Family Medical History: Dementia Additional Family Medical History / Comment(s): AT AGE 85 Brother(s) Family Medical History: Cancer Additional Family Medical History / Comment(s): LEUKEMIA. General Exam - General Exam Comments Initial Comments: General: The patient is awake and alert, in no distress Eye: +3 mm pupils are equal, round and reactive to light, extra-ocular movements are intact. No nystagmus. There is normal conjunctiva bilaterally. No signs of icterus. . Cardiovascular: There is a regular rate and rhythm. No murmur, rub or gallop is appreciated. Respiratory: Lungs are clear to auscultation, respirations are non-labored, breath sounds are equal. No wheezes, stridor, rales, or rhonchi. Gastrointestinal: Soft, non-distended, non-tender abdomen without masses or organomegaly noted. There is no rebound or guarding present Musculoskeletal: Band like low back pain to palpation, no specific midline tend erness, (-) SLR. Full sensation and strength of the LE b/l. Ambulatory. No saddle anesthesia. Radial and DP pulses equal bilaterally 2+. Neurological: A&O x 3. CN II-XII intact grossly, There are no obvious motor or sensory deficits. Coordination appears grossly intact. Speech is normal. Skin: Skin is warm and dry and no rashes or lesions are noted. No leg swelling. Psychiatric: Cooperative, appropriate mood & affect, normal judgment. Limitations: no limitations Course Vital Signs 01/08/20 01/08/20 20:51 22:10 Temperature 96.9 F L 97.3 F L Pulse Rate 88 80 Respiratory 18 18 Rate Blood Pressure 173/95 154/99 O2 Sat by Pulse 97 99 Oximetry Medical Decision Making - Medical Decision Making 69yo male presenting for low back pain. Hx of cancer. Denies any symptoms concerning for cauda equina. Denies radicular symptoms at this time. Neurovascularly intact. Patient denies falls. Or significant increase in pain. Denies fevers. Patient ambulatory. PET scan scheduled on Tuesday. Patient presented for pain control. States he doesnt need imaging. Patient apperas well case discussed with Dr. Nogueira. Pt discharged appearing well. Disposition Clinical Impression: Back pain Disposition: HOME SELF-CARE Condition: Good Instructions (If sedation given, give patient instructions): Lumbar Radiculopathy (ED) Additional Instructions: Please use medication as discussed. Please follow-up with family doctor in the next 2 days, and orthopedic spine. Please return to emergency room if the symptoms increase or worsen or for any other concerns. Is patient prescribed a controlled substance at d/c from ED?: No Referrals: Sruthi Duarte MD [Primary Care Provider] - 1-2 days Aroldo Mcbride DO [Doctor of Osteopathic Medicine] - 1-2 days Ena Marroquin DO [Doctor of Osteopathic Medicine] - 1-2 days Time of Disposition: 22:00
[2020-01-08 22:11] VITALS: BP 154/99; PULSE 80; TEMP 97.3
== END 2020-01-08 22:11 | disposition home or self-care (01) ==
LOC: EC 20:49
DX: M54.5 Low back pain (principal); C34.90 Malignant neoplasm of unspecified part of unspecified bronchus or lung; C79.89 Secondary malignant neoplasm of other specified sites; I10 Essential (primary) hypertension; I25.119 Atherosclerotic heart disease of native coronary artery with unspecified angina pectoris; E78.5 Hyperlipidemia, unspecified; E11.9 Type 2 diabetes mellitus without complications; M19.042 Primary osteoarthritis, left hand; F17.200 Nicotine dependence, unspecified, uncomplicated; M19.041 Primary osteoarthritis, right hand; I25.2 Old myocardial infarction; Z79.84 Long term (current) use of oral hypoglycemic drugs; Z79.02 Long term (current) use of antithrombotics/antiplatelets; Z79.899 Other long term (current) drug therapy; Z79.82 Long term (current) use of aspirin; Z96.651 Presence of right artificial knee joint
CPT/HCPCS: 99283 ×2; 96372 ×2; J2270

== ENCOUNTER → 2020-01-11 | Outpatient (CLI) | payer MEDICARE ==
--- NOTE | 2020-01-14 06:50 | PE ---
EXAMINATION TYPE: PET CT fusion skull to thigh DATE OF EXAM: 01/11/2020 COMPARISON: Prior PET/CT July 20, 2019. Prior whole-body CT November 09, 2019. HISTORY: Lung cancer progress study , originally diagnosed July 2019 and completed radiation treatmen t August 2019 and recently completed chemotherapy in December. TECHNIQUE: Following the intravenous administration of 12.3 mCi of F-18 FDG, whole body images are p erformed from the skull base to the midthigh. Images are reviewed on the computer in the coronal, ax ial, and sagittal planes. Reconstructed rotating images are created on independent workstation and r eviewed on the computer. A noncontrast CT is performed in conjunction with the PET scan. SCAN: Subsequent Scan FINDINGS: SKULL BASE AND NECK: No new areas of abnormal hypermetabolic uptake. CHEST, MEDIASTINUM, AND HILAR REGION: Marked interval improvement or interval resolution in the abnor mal hypermetabolic mediastinal adenopathy, most prominent right paratracheal and paracarinal regions with additional anterior superior mediastinal involvement. Some smaller nodularity near surrounding f luid noted near axial image 80. Max SUV less than 2.5. No residual hypermetabolic uptake. No new area s of hypermetabolic uptake. ABDOMEN AND PELVIS: There is however increased hypermetabolic uptake in the right adrenal metastatic lesion currently measuring 2.6 x 2.4 cm axial image 149, max SUV is 6.91. Nonspecific diffuse bowel uptake. Normal excretion. Mildly distended bladder. OSSEOUS STRUCTURES: Worsening hypermetabolic uptake involving the L5 vertebra, max SUV is 7.12. New a reas of hypermetabolic uptake near the thoracolumbar junction greatest L1 level, max SUV is 4.15s. Pe rsistent slight hypermetabolic focus left anterolateral fourth rib axial image 92. Max SUV is 3.03. W orsening hypermetabolic focus right hip corresponding to subtle sclerotic lesion near image 240, max SUV is 6.23. OTHER CT: Mild to moderate calcified plaque bilateral carotid bulb level. Nasal septum deviated to le ft of midline. Mild/moderate underlying emphysematous change. There is severe three-vessel coronary artery calcifica tion and/or stents. Small pericardial effusion slightly larger from prior. Mild cardiomegaly. Small d egree of subareolar gynecomastia. Dependent small gallstone. Stable low dense thickening to left adrenal gland consistent with benign l ipid rich hyperplasia. Stable 2.5 cm thin-walled cyst right kidney posteriorly axial image 163. Moder ate aspect change in ectatic abdominal aorta without greater than 3.0 cm aneurysm. Enlarged prostate gland consistent with BPH. A few sigmoid colonic diverticula. IMPRESSION: Overall mixed response. Marked interval improvement in mediastinal adenopathy. Interval p rogression of right adrenal and osseous metastatic disease noted.
== END | disposition home or self-care (01) ==
LOC: RADPETMAIN 08:16
PROVIDERS: ATTEND Internal Medicine Hematology & Oncology
DX: C34.12 Malignant neoplasm of upper lobe, left bronchus or lung (principal); C79.51 Secondary malignant neoplasm of bone; C79.71 Secondary malignant neoplasm of right adrenal gland; R59.0 Localized enlarged lymph nodes; Z92.21 Personal history of antineoplastic chemotherapy
CPT/HCPCS: 78815; A9552

== ENCOUNTER 2020-01-13 14:55 | Emergency (ER) | payer MEDICARE ==
[2020-01-13 16:16] VITALS: RESP 18
[2020-01-13] MEDS ORDERED: HYDROmorphone 1 MG/ML 1 ML SYRINGE IM STA (17:11)
[2020-01-13 17:49] VITALS: PULSE 84
--- NOTE | 2020-01-13 17:50 | CT ---
EXAMINATION TYPE: CT thor lumbar spine wo con DATE OF EXAM: 01/13/2020 COMPARISON: 11/09/2019 HISTORY: Back pain CT DLP: mGycm Automated exposure control for dose reduction was used. Thoracic vertebra have normal alignment. There is no compression fracture. Lumbar vertebra have fairl y normal alignment. There is narrowing of the disc spaces at L2-3 and L3-4. There is osteosclerosis. The posterior elements are intact. There is old posterior fusion surgery in the lower lumbar spine. T here is no lumbar paraspinal mass. There is some atrophy left psoas muscle. The sacroiliac joints are intact. There is a 5 mm anterior subluxation of L5 in relation S1. There is some osteosclerosis in t he T1 vertebral body. There is also posterior T4 vertebral body osteosclerosis on the left side. Ther e is some osteoblastic change also in the left transverse process of T4. There is evidence of old lef t side rib fractures at the costovertebral junction. I see no acute fracture. IMPRESSION: Osteoblastic changes in the thoracic spine consistent with metastatic disease stable compared to old exam. No acute bony abnormality. Lumbar spondylotic changes. No compression fracture. Stable L5-S1 sp ondylolisthesis.
[2020-01-13] MEDS ORDERED: LIDOCAINE 5% PATCH TOPICAL STA (17:56)
--- NOTE | 2020-01-13 18:15 | ED ---
Back Pain HPI - General Chief Complaint: Back Pain/Injury Stated Complaint: Revisit Back Pain Time Seen by Provider: 01/13/20 16:32 Source: patient Limitations: no limitations - History of Present Illness Initial Comments: A pleasant 69-year-old male presents today for chief complaint of low back pain. Patient states she has low to mid back pain he states that he has known meta stasis to spine and wanted to make sure is not getting worse he denies a loss of bowel bladder control urinary retention he denies new or rectal dysfunction he denies leg weakness sensation deficits. He does admit to at times pain radiating down the legs. He denies fevers. Denies recent falls or direct trauma. Patient states that the [employer] at home does not seem to be working and he wants something stronger. Patient states he did have a PET scan on Tuesday is unsure of the results. Patient denies additional complaints upon arrival he is ambulatory appears nontoxic in no acute distress afebrile - Related Data Home Medications Medication Instructions Recorded Confirmed Clopidogrel [Plavix] 75 mg PO DAILY 01/11/14 10/19/19 glipiZIDE [Glucotrol] 10 mg PO BID 01/11/14 10/19/19 lisinopriL [Zestril] 10 mg PO DAILY 01/11/14 10/19/19 Aspirin [Adult Low Dose Aspirin EC] 81 mg PO DAILY 07/06/19 10/19/19 Atorvastatin [Lipitor] 40 mg PO HS 07/06/19 10/19/19 Dapagliflozin Propanediol [Farxiga] 10 mg PO DAILY 07/06/19 10/19/19 Fish Oil/Dha/Epa [Fish Oil 1,200 4,800 mg PO DAILY 07/06/19 10/19/19 mg Fish Oil] Metoprolol Tartrate [Lopressor] 50 mg PO HS 07/06/19 10/19/19 metFORMIN HCL 1,000 mg PO BID 07/06/19 10/19/19 sitaGLIPtin [Januvia] 100 mg PO DAILY 07/06/19 10/19/19 LORazepam [Ativan] 1 mg PO TID PRN 09/14/19 10/19/19 Ondansetron [Zofran] 4 mg PO Q8HR PRN 09/14/19 10/19/19 Sennosides/Docusate Sodium [Senna 1 - 2 tab PO BID PRN 09/14/19 10/19/19 Plus 8.6-50 mg Softgel] Zolpidem Tartrate [Ambien] 10 mg PO HS 09/14/19 10/19/19 Potassium 10/03/19 Previous Rx's Medication Instructions Recorded Calcium Carbonate/Vitamin D3 1 each PO DAILY #30 tablet 09/15/19 [Calcium 500-Vit D3 200 Tablet] Magnesium Oxide [Mag-Ox] 250 mg PO TID #30 tablet 09/15/19 oxyCODONE HCL/ACETAMINOPHEN 1 tab PO Q6HR PRN 3 Days #12 tab 01/13/20 [Percocet 7.5-325 mg] Allergies Allergy/AdvReac Type Severity Reaction Status Date / Time No Known Allergies Allergy Verified 01/13/20 16:16 Review of Systems ROS Statement: Those systems with pertinent positive or pertinent negative responses have been documented in the HPI. ROS Other: All systems not noted in ROS Statement are negative. 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 PET scan Past Anesthesia/Blood Transfusion Reactions: No Reported Reaction Date of Last Stent Placement:: 2013 Past Psychological History: No Psychological Hx Reported, Anxiety Smoking Status: Current every day smoker Past Alcohol Use History: None Reported Past Drug Use History: Cocaine - Past Family History Father Family Medical History: Cancer Additional Family Medical History / Comment(s): AT 84. MULTIPLE MYELOMA. Mother Family Medical History: Dementia Additional Family Medical History / Comment(s): AT AGE 85 Brother(s) Family Medical History: Cancer Additional Family Medical History / Comment(s): LEUKEMIA. General Exam - General Exam Comments Initial Comments: General: The patient is awake and alert, in no distress Eye: +3 mm pupils are equal, round and reactive to light, extra-ocular movements are intact. No nystagmus. There is normal conjunctiva bilaterally. No signs of icterus. Ears, nose, mouth and throat: There are moist mucous membranes and no oral lesions. Neck: The neck is supple, there is no tenderness or JVD. Cardiovascular: There is a regular rate and rhythm. No murmur, rub or gallop is appreciated. Respiratory: Lungs are clear to auscultation, respirations are non-labored, breath sounds are equal. No wheezes, stridor, rales, or rhonchi. Gastrointestinal: Soft, non-distended, non-tender abdomen without masses or organomegaly noted. There is no rebound or guarding present. No CVA tenderness. Musculoskeletal: Some midline mid to lower thoracic and upper lumbar pain. No skin changes. Normal ROM, no tenderness. Strength 5/5 of the LE b/l. Sensation intact of the LE b/l no loss of sensation in the saddle region. Radial and DP pulses equal bilaterally 2+. (-) SLR b/l. Neurological: A&O x 3. CN II-XII intact grossly, There are no obvious motor or sensory deficits. Coordination appears grossly intact. Speech is normal. Skin: Skin is warm and dry and no rashes or lesions are noted. Psychiatric: Cooperative, appropriate mood & affect, normal judgment. Limitations: no limitations Course Vital Signs 01/13/20 01/13/20 01/13/20 16:13 17:45 19:20 Temperature 97.7 F 98.0 F Pulse Rate 88 84 84 Respiratory 18 18 18 Rate Blood Pressure 104/67 147/98 136/84 O2 Sat by Pulse 98 93 L 96 Oximetry Medical Decision Making - Medical Decision Making Denies symptoms concerning for cauda equina. Pt ambulatory. Patient has history of cancer. CT no progression or new lesions. Patient pain managed in ER. Increased outpatient medication to percocet and educated thoroughly on disposing of norco and not taking percocet and norco at the same time. Patient verbalizd understanding. pt discharged appearing well after discussing case with attending. Disposition Clinical Impression: Chronic back pain Disposition: HOME SELF-CARE Condition: Good Instructions (If sedation given, give patient instructions): Acute Low Back Pain (ED) Additional Instructions: Please use medication as discussed. Please follow-up with family doctor in the next 2 days, orthopedic spine and oncology as discussed. Please return to emergency room if the symptoms increase or worsen or for any other concerns. Prescriptions: oxyCODONE HCL/ACETAMINOPHEN [Percocet 7.5-325 mg] 1 tab PO Q6HR PRN 3 Days #12 tab PRN Reason: Severe Pain Is patient prescribed a controlled substance at d/c from ED?: Yes When asked, does pt state using other controlled substances?: Yes If prescribed controlled substance>3 days was MAPS reviewed?: Prescribed <3 Days If opioid is for acute pain is fill amount 7 days or less?: Yes If Rx opioid, was Start Talking consent form obtained?: Yes Referrals: Sruthi Duarte MD [Primary Care Provider] - 1-2 days Time of Disposition: 18:58
[2020-01-13] MEDS ORDERED: HYDROmorphone 0.5 MG/0.5 ML SYRINGE IM STA (18:25)
[2020-01-13 19:22] VITALS: BP 136/84; TEMP 98
== END 2020-01-13 19:22 | disposition home or self-care (01) ==
LOC: EC 14:55
DX: G89.29 Other chronic pain (principal); C34.90 Malignant neoplasm of unspecified part of unspecified bronchus or lung; C79.51 Secondary malignant neoplasm of bone; M54.5 Low back pain; M54.6 Pain in thoracic spine; I10 Essential (primary) hypertension; E11.9 Type 2 diabetes mellitus without complications; I25.119 Atherosclerotic heart disease of native coronary artery with unspecified angina pectoris; E78.5 Hyperlipidemia, unspecified; M19.042 Primary osteoarthritis, left hand; M19.041 Primary osteoarthritis, right hand; I25.2 Old myocardial infarction; F17.200 Nicotine dependence, unspecified, uncomplicated; Z79.51 Long term (current) use of inhaled steroids; Z79.84 Long term (current) use of oral hypoglycemic drugs; Z79.82 Long term (current) use of aspirin; Z79.02 Long term (current) use of antithrombotics/antiplatelets; Z79.899 Other long term (current) drug therapy; Z98.1 Arthrodesis status; Z96.651 Presence of right artificial knee joint
CPT/HCPCS: 72128; 72131; 99283; 96372 ×2; J1170 ×2

== ENCOUNTER → 2020-02-04 | Outpatient (CLI) | payer MEDICARE ==
--- NOTE | 2020-02-04 07:46 | MR ---
EXAMINATION TYPE: MR lumbar spine wo/w con DATE OF EXAM: 02/04/2020 COMPARISON: Prior lumbar MRI 08/03/2019 HISTORY: Radiculopathy, low back pain, spondylosis, metastatic lung ca TECHNIQUE: Multiplanar, multisequence images of the lumbar spine were acquired utilizing 7.5 mL intravenous Gada vist gadolinium contrast. L1-L2: Posterior extension of her discomfort causes mild anterior aspect of the thecal sac. Circumfer ential extension of this complex encroaches on the foramina. No significant spinal stenosis. L2-L3: Posterior extension) complex causes mild anterior aspect of the thecal sac, extension circumfe rentially causes some right-sided foraminal encroachment, no significant spinal stenosis. There is fa cet arthropathy change. L3-L4: Posterior extension endplate disc complex shows a similar appearance to prior exam and causes some effacement of anterior thecal sac. There is some left-sided foraminal encroachment. Facet arthro isabella change is noted as on prior. L4-L5: There is some abnormal soft tissue extending into the left neural foramen causing minimal encr oachment. No significant spinal stenosis or disc herniation. Facet arthropathy causes some lateral ma ss effect on the thecal sac. L5-S1: Mild anterolisthesis grade 1 L5-S1, bilateral spondylolysis again noted at L5-S1. Similar appe arance to prior exam, there is marked facet arthropathy change. Ankylosis of the posterior elements i s again noted at L4-5, vacuum phenomenon present at L5-S1 with associated loss of disc height and sig nal. Listhesis contributes to cause bilateral foraminal encroachment. Nerve roots are not delineated bilaterally at L5, there is abnormal soft tissue noted this level which has progressed in the interva l posterior to the L5 vertebral body which shows enhancement following contrast administration. No si gnificant spinal stenosis. No evident disc herniation. Lumbar segments are remarkable for abnormal signal as noted on prior exam within the L5 vertebral bod y, L2, L1 and T12 vertebral bodies, the signal is intermediate on T1 and T2-weighted sequences within these vertebral bodies. Persistent spinal curvature noted. There is enhancement following contrast a dministration similar to prior exam., Focus in the right ilium are also again noted with abnormal sig nal. There is a right adrenal mass present as on prior exam. Cortical cysts are associated with the k idneys. No paraspinal masses are identified. Conus medullaris has a normal appearance. IMPRESSION: There has been some progression of patient's metastatic disease as noted especially at the L5-S1 leve l.
== END | disposition home or self-care (01) ==
LOC: RADMRIMAIN 06:35
PROVIDERS: ATTEND Orthopaedic Surgery Orthopaedic Surgery of the Spine
DX: C34.90 Malignant neoplasm of unspecified part of unspecified bronchus or lung (principal); M51.36 Other intervertebral disc degeneration, lumbar region; M47.816 Spondylosis without myelopathy or radiculopathy, lumbar region; M43.17 Spondylolisthesis, lumbosacral region; M54.16 Radiculopathy, lumbar region; M25.78 Osteophyte, vertebrae
CPT/HCPCS: 72158; A9585

== ENCOUNTER → 2020-02-11 | Outpatient (CLI) | payer MEDICARE ==
[2020-02-11 08:15] VITALS: BP 174/99; PULSE 77; RESP 16
--- NOTE | 2020-02-11 08:35 | P.PAINCN ---
History of Present Illness - Reason for Consult Consult date: 02/11/20 - History of Present Illness This is an initial consultation visit for this 69 years old male, 2 month history of severe low back pain with radiation to the lower extremity associated with numbness and tingling sensation, patient diagnosed with lung cancer with with next to the lumbar spine, he was evaluated by orthopedic surgery, he was referred to [facility] pain clinic for interventional pain management, patient was started on Percocet 7.5/325, and Neurontin 300 mg twice a day, he reported that the current medication control his pain 100%, over the last 10 days he has 0 pain, he denies any side effect of the medication he denies any motor or sensory deficit he denies any change in the bowel movement or urination, and he reported that his ability to ambulate freely without any difficulty, he'll continue to use Neurontin twice a day and use Percocet 7.5/325 once daily when necessary, Past Medical History Past Medical History: Coronary Artery Disease (CAD), Cancer, Chest Pain / Angina, Diabetes Mellitus, Hyperlipidemia, Hypertension, Myocardial Infarction ([place]) Additional Past Medical History / Comment(s): Small cell lung cancer/mediastinal mass with SVC compression-treated with chemotherapy in July 2019 and radiation just completed about 4 weeks ago-pt states he is to restart chemo in one week, NIDDM type II, 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 PET scan Past Anesthesia/Blood Transfusion Reactions: No Reported Reaction Date of Last Stent Placement:: 2013 Past Psychological History: No Psychological Hx Reported, Anxiety Additional Psychological History / Comment(s): Pt resides with his spouse. He is independent. Smoking Status: Current every day smoker Past Alcohol Use History: None Reported Additional Past Alcohol Use History / Comment(s): STARTED SMOKING AT AGE 20 SMOKES 1.0 PPD Past Drug Use History: Cocaine Additional Drug Use History / Comment(s): LSD, MESCULINE QUIT ALL DRUGS OVER 20 YEARS AGO - Past Family History Father Family Medical History: Cancer Additional Family Medical History / Comment(s): AT 84. MULTIPLE MYELOMA. Mother Family Medical History: Dementia Additional Family Medical History / Comment(s): AT AGE 85 Brother(s) Family Medical History: Cancer Additional Family Medical History / Comment(s): LEUKEMIA. Medications and Allergies Home Medications Medication Instructions Recorded Confirmed Type Clopidogrel [Plavix] 75 mg PO DAILY 01/11/14 02/11/20 History glipiZIDE [Glucotrol] 10 mg PO BID 01/11/14 02/11/20 History lisinopriL [Zestril] 10 mg PO DAILY 01/11/14 02/11/20 History Aspirin [Adult Low Dose Aspirin EC] 81 mg PO DAILY 07/06/19 02/11/20 History Atorvastatin [Lipitor] 40 mg PO HS 07/06/19 02/11/20 History Dapagliflozin Propanediol [Farxiga] 10 mg PO DAILY 07/06/19 02/11/20 History Fish Oil/Dha/Epa [Fish Oil 1,200 4,800 mg PO DAILY 07/06/19 02/11/20 History mg Fish Oil] Metoprolol Tartrate [Lopressor] 50 mg PO HS 07/06/19 02/11/20 History metFORMIN HCL 1,000 mg PO BID 07/06/19 02/11/20 History sitaGLIPtin [Januvia] 100 mg PO DAILY 07/06/19 02/11/20 History LORazepam [Ativan] 1 mg PO TID PRN 09/14/19 02/11/20 History Ondansetron [Zofran] 4 mg PO Q8HR PRN 09/14/19 02/11/20 History Sennosides/Docusate Sodium [Senna 1 - 2 tab PO BID PRN 09/14/19 02/11/20 History Plus 8.6-50 mg Softgel] Zolpidem Tartrate [Ambien] 10 mg PO HS 09/14/19 02/11/20 History Calcium Carbonate/Vitamin D3 1 each PO DAILY #30 tablet 09/15/19 02/11/20 Rx [Calcium 500-Vit D3 200 Tablet] Magnesium Oxide [Mag-Ox] 250 mg PO TID #30 tablet 09/15/19 02/11/20 Rx Potassium 1 tab PO DAILY 10/03/19 02/11/20 History oxyCODONE HCL/ACETAMINOPHEN 1 tab PO Q6HR PRN 3 Days #12 tab 01/13/20 02/11/20 Rx [Percocet 7.5-325 mg] Gabapentin 300 mg PO BID 02/05/20 02/11/20 History Allergies Allergy/AdvReac Type Severity Reaction Status Date / Time No Known Allergies Allergy Verified 02/11/20 08:10 Physical Exam Vitals: Vital Signs Pulse Resp BP 02/11/20 08:12 77 16 174/99 Physical Examinations : -Constitutiona : Cooperative , not in acute distress . -HEENT : nech : supple , no Lymphadenopathy , normal thyroid size . : eyes : no ptosis , no icterus, no photophobia . - neurologic : Cranial nerve II to XII intact , no focal neurological deffecit . -psychatric : alert , oriented X 3 , appropriate affect , intact judgment and insight . -Lymphatic : no Lymphadenopathy . - musculoskeltal : Lumber spine moter stegnth lower extremities ,thigh and legs 5/5 Right side , 5/5 Left side deep tendon reflexes : normal Knee Jerk , normal ankle Jerk lumber facet Loading Test = negative bilaterally Range of motion of the lumbar spine Flexion 90 degrees, extension 45 degrees strait leg raising test = negative bilaterally Fabere test= negative bilaterally Results Comments: MRI of the lumbar spine= L5-S1 metastatic disease, and L2 3 L3 4 L4 5 and L5-S1 facet joint arthropathy, and bilateral foraminal stenosis at L5-S1 Assessment and Plan Plan: Assessment and plan=1-metastatic disease to the lumbar spine. 2-lumbar spondylosis with lumbar facet arthropathy without myelopathy. 3-lumbar radiculopathy. Patient reported that his pain level now is 0/10, denies any pain now and patient had no radicular symptoms, and his symptoms improve The current medication management (3 weeks after patient started Neurontin ), shunt denies any side effect of the medication, Patient want ,not to do any interventional pain management, patient will follow up with the pain clinic when necessary Time with Patient: Greater than 30 PQRS Measure Charge Sheet Measure #130: Documentation of Current Meds in Medical Chart: Patient's medications documented in chart Measure #226: Tobacco Use: Screen & Cessation Intervention: Pt screened for tobacco use AND intervention given Measure #111: Pneumonia Vaccination: Pneumococcal vaccine administered or previously received Measure #47: Advance Care Plan: Advance care planning discussed & documented, pt chose/unable to give Measure #412: Opioid Treatment Agreement: No documentation of signed opioid treatment agreement Measure #408: Opioid Therapy Follow-up Evaluation: Patient had NO f/u eval minimum every 3 months during opioid therapy Measure #317: Preventitive Care & Scrn High Bld Press & F/U: Pre-hypertensive or hypertensive BP documented, pt will f/u with PCP Measure #128: Body Mass Index (BMI) Screening & Follow-up: BMI documented within normal parameters Measure #131: Pain Assessment & Follow-up: Pain positive & plan documented, Follow-up scheduled Measure #431: Unhealthy Alcohol Use Preventative Care & Scrn: Patient not identified as an unhealthy alcohol user PQRS Narrative: Smoking Status Current every day smoker Blood Pressure 174/99 Pain Intensity [Lower Back] 3 Scale Used Numeric (1 - 10) Hx Alcohol Use (MH) No Home Medications: Ambulatory Orders Clopidogrel [Plavix] 75 mg PO DAILY 01/11/14 glipiZIDE [Glucotrol] 10 mg PO BID 01/11/14 lisinopriL [Zestril] 10 mg PO DAILY 01/11/14 Aspirin [Adult Low Dose Aspirin EC] 81 mg PO DAILY 07/06/19 Atorvastatin [Lipitor] 40 mg PO HS 07/06/19 Dapagliflozin Propanediol [Farxiga] 10 mg PO DAILY 07/06/19 Fish Oil/Dha/Epa [Fish Oil 1,200 mg Fish Oil] 4,800 mg PO DAILY 07/06/19 Metoprolol Tartrate [Lopressor] 50 mg PO HS 07/06/19 metFORMIN HCL 1,000 mg PO BID 07/06/19 sitaGLIPtin [Januvia] 100 mg PO DAILY 07/06/19 LORazepam [Ativan] 1 mg PO TID PRN 09/14/19 Ondansetron [Zofran] 4 mg PO Q8HR PRN 09/14/19 Sennosides/Docusate Sodium [Senna Plus 8.6-50 mg Softgel] 1 - 2 tab PO BID PRN 09/14/19 Zolpidem Tartrate [Ambien] 10 mg PO HS 09/14/19 Calcium Carbonate/Vitamin D3 [Calcium 500-Vit D3 200 Tablet] 1 each PO DAILY #30 tablet 09/15/19 Magnesium Oxide [Mag-Ox] 250 mg PO TID #30 tablet 09/15/19 Potassium 1 tab PO DAILY 10/03/19 oxyCODONE HCL/ACETAMINOPHEN [Percocet 7.5-325 mg] 1 tab PO Q6HR PRN 3 Days #12 tab 01/13/20 Gabapentin 300 mg PO BID 02/05/20
== END | disposition home or self-care (01) ==
LOC: PNWHC3 07:51
PROVIDERS: ATTEND Specialist
DX: M47.26 Other spondylosis with radiculopathy, lumbar region (principal); C79.51 Secondary malignant neoplasm of bone; F17.200 Nicotine dependence, unspecified, uncomplicated; I25.10 Atherosclerotic heart disease of native coronary artery without angina pectoris; E11.9 Type 2 diabetes mellitus without complications; E78.5 Hyperlipidemia, unspecified; I10 Essential (primary) hypertension; I25.2 Old myocardial infarction; Z79.82 Long term (current) use of aspirin; Z79.899 Other long term (current) drug therapy; Z79.891 Long term (current) use of opiate analgesic; Z79.84 Long term (current) use of oral hypoglycemic drugs; Z79.1 Long term (current) use of non-steroidal anti-inflammatories (NSAID)
CPT/HCPCS: 99211

== ENCOUNTER → 2020-02-12 | Outpatient (CLI) | payer MEDICARE ==
--- NOTE | 2020-02-12 16:10 | MR ---
EXAMINATION TYPE: MR brain wo/w con DATE OF EXAM: 02/12/2020 COMPARISON: 11/08/2019 HISTORY: Lung neoplasm CONTRAST: Performed utilizing 7.5 mL intravenous Gadavist gadolinium contrast. TECHNIQUE: Multiplanar, multiecho imaging on a 3.0 Norma magnet is performed through the brain. Stud y is performed within 24 hours of arrival to the hospital. The craniovertebral junction is normal. The pituitary is normal. Diffusion-weighted imaging is performed. There is a new hyperintensity within the posterior inferior left cerebellum this measures approximately 1.1 cm and has enhancement. Findings can be compatible w ith a metastatic lesion. No additional enhancing lesions are identified. Postsurgical changes are within the right parietal-oc cipital region present previously There is a punctate hyperintensity within the right thalamus measuring 0.4 cm present previously may BE is a small area of microvascular ischemic change. Mild scattered periventricular and subcortical h yperintensities on inversion recovery weighted sequence are present. 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 Ventricles and sulci are appropriate for the patient age. There is opacification of the left frontal sinus. IMPRESSIONS: 1. New 1.1 cm enhancing ring lesion posterior inferior left cerebellum can be compatible with solitar y metastasis. 2. Periventricular white matter hyperintensities, likely on the basis of chronic white matter ischemi c changes.
== END | disposition home or self-care (01) ==
LOC: RADMRIMAIN 11:48
PROVIDERS: ATTEND Radiology Radiation Oncology
DX: G93.89 Other specified disorders of brain (principal); R90.89 Other abnormal findings on diagnostic imaging of central nervous system; C34.11 Malignant neoplasm of upper lobe, right bronchus or lung; C79.51 Secondary malignant neoplasm of bone; Z92.3 Personal history of irradiation
CPT/HCPCS: 70553; A9585

== ENCOUNTER 2020-02-18 12:56 | Emergency (ER) | payer MEDICARE ==
--- NOTE | 2020-02-18 13:53 | ED ---
General Adult HPI - General Source: patient Mode of arrival: wheelchair Limitations: no limitations <Bishop Frank - Last Filed: 02/18/20 15:13> <Quoc Chapman - Last Filed: 02/18/20 18:39> - General Chief complaint: Abdominal Pain Stated complaint: bowel problems/unable to urinate Time Seen by Provider: 02/18/20 13:39 - History of Present Illness Initial comments: Dictation was produced using [employer] dictation software. please excuse any grammatical, word or spelling errors. This patient was cared for during a federal and state declared state of emergency secondary to Covid 19 Chief Complaint: 69-year-old male presents with constipation History of Present Illness: In a 69-year-old male presents today with constipation. He has not had a bowel movement in 4 days. Patient tried taking MiraLAX however no improvement. Patient has history of diabetes, lung cancer with metastatic disease, hypertension. Denies any fever. Does complain some mild abdominal discomfort. No nausea vomiting. The ROS documented in this emergency department record has been reviewed and confirmed by me. Those systems with pertinent positive or negative responses have been documented in the HPI. All other systems are other negative and/or noncontributory. PHYSICAL EXAM: General Impression: Alert and oriented x3, not in acute distress HEENT: Normocephalic atraumatic, extra-ocular movements intact, pupils equal and reactive to light bilaterally, mucous membranes moist. Cardiovascular: Heart regular rate and rhythm Chest: Able to complete full sentences, no retractions, no tachypnea Abdomen: abdomen soft, non-tender, non-distended, no organomegaly Musculoskeletal: Pulses present and equal in all extremities, no peripheral edema Motor: no focal deficits noted Rectal exam: Large hard stool seen externally at the rectum Neurological: CN II-XII grossly intact, no focal motor or sensory deficits noted Skin: Intact with no visualized rashes Psych: Normal affect and mood ED course: 69-year-old male presents with constipation. Vital signs upon arrival are within acceptable limits.Laboratory evaluation obtained. Mild leukocytosis of 13.5, macrocytosis 1-2.3 metabolic panel is unremarkable. X-ray shows nonspecific bowel gas pattern. Patient ordered for enema. Care was signed out to Dr. Chapman at 3:13 PM. (Bishop Frank) - Related Data Home Medications Medication Instructions Recorded Confirmed Clopidogrel [Plavix] 75 mg PO DAILY 01/11/14 02/11/20 glipiZIDE [Glucotrol] 10 mg PO BID 01/11/14 02/11/20 lisinopriL [Zestril] 10 mg PO DAILY 01/11/14 02/11/20 Aspirin [Adult Low Dose Aspirin EC] 81 mg PO DAILY 07/06/19 02/11/20 Atorvastatin [Lipitor] 40 mg PO HS 07/06/19 02/11/20 Dapagliflozin Propanediol [Farxiga] 10 mg PO DAILY 07/06/19 02/11/20 Fish Oil/Dha/Epa [Fish Oil 1,200 4,800 mg PO DAILY 07/06/19 02/11/20 mg Fish Oil] Metoprolol Tartrate [Lopressor] 50 mg PO HS 07/06/19 02/11/20 metFORMIN HCL 1,000 mg PO BID 07/06/19 02/11/20 sitaGLIPtin [Januvia] 100 mg PO DAILY 07/06/19 02/11/20 LORazepam [Ativan] 1 mg PO TID PRN 09/14/19 02/11/20 Ondansetron [Zofran] 4 mg PO Q8HR PRN 09/14/19 02/11/20 Sennosides/Docusate Sodium [Senna 1 - 2 tab PO BID PRN 09/14/19 02/11/20 Plus 8.6-50 mg Softgel] Zolpidem Tartrate [Ambien] 10 mg PO HS 09/14/19 02/11/20 Potassium 1 tab PO DAILY 10/03/19 02/11/20 Gabapentin 300 mg PO BID 02/05/20 02/11/20 Previous Rx's Medication Instructions Recorded Calcium Carbonate/Vitamin D3 1 each PO DAILY #30 tablet 09/15/19 [Calcium 500-Vit D3 200 Tablet] Magnesium Oxide [Mag-Ox] 250 mg PO TID #30 tablet 09/15/19 oxyCODONE HCL/ACETAMINOPHEN 1 tab PO Q6HR PRN 3 Days #12 tab 01/13/20 [Percocet 7.5-325 mg] Allergies Allergy/AdvReac Type Severity Reaction Status Date / Time No Known Allergies Allergy Verified 02/18/20 13:07 Review of Systems ROS Other: All systems not noted in ROS Statement are negative. <Bishop Frank - Last Filed: 02/18/20 15:13> ROS Other: All systems not noted in ROS Statement are negative. <Quoc Chapman - Last Filed: 02/18/20 18:39> ROS Statement: Those systems with pertinent positive or pertinent negative responses have been documented in the HPI. 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 PET scan Past Anesthesia/Blood Transfusion Reactions: No Reported Reaction Date of Last Stent Placement:: 2013 Past Psychological History: No Psychological Hx Reported, Anxiety Smoking Status: Current every day smoker Past Alcohol Use History: None Reported Past Drug Use History: Cocaine - Past Family History Father Family Medical History: Cancer Additional Family Medical History / Comment(s): AT 84. MULTIPLE MYELOMA. Mother Family Medical History: Dementia Additional Family Medical History / Comment(s): AT AGE 85 Brother(s) Family Medical History: Cancer Additional Family Medical History / Comment(s): LEUKEMIA. <Bishop Frank - Last Filed: 02/18/20 15:13> General Exam Limitations: no limitations <Bishop Frank - Last Filed: 02/18/20 15:13> Course <Quoc Chapman - Last Filed: 02/18/20 18:39> Vital Signs 02/18/20 13:04 Temperature 98.7 F Pulse Rate 70 Respiratory 16 Rate Blood Pressure 113/72 O2 Sat by Pulse 98 Oximetry - Reevaluation(s) Reevaluation #1: 12/14/20 18:11 Patient did have a large bowel movement and felt much improved. He did receive IV fluids. CAT scan showed no evidence of obstruction at this time. (Quoc Chapman) Medical Decision Making - Lab Data Result diagrams: 02/18/20 14:35 02/18/20 14:35 <Bishop Frank - Last Filed: 02/18/20 15:13> - Lab Data Result diagrams: 02/18/20 14:35 02/18/20 14:35 - Radiology Data Radiology results: report reviewed (The patient's imaging showed no definite obstruction CAT scan shows the same as question of evidence of some metastatic disease.), image reviewed <Quoc Chapman - Last Filed: 02/18/20 18:39> - Medical Decision Making The patient is feeling much improved after IV fluids. We did a long discussion regarding rehydration. He will be discharged (Quoc Chapman) - Lab Data Lab Results 02/18/20 02/18/20 02/18/20 Range/Units 14:35 14:35 16:43 WBC 13.5 H (3.8-10.6) k/uL RBC 3.50 L (4.30-5.90) m/uL Hgb 11.5 L (13.0-17.5) gm/dL Hct 35.8 L (39.0-53.0) % MCV 102.3 H D (80.0-100.0) fL MCH 32.8 (25.0-35.0) pg MCHC 32.0 (31.0-37.0) g/dL RDW 14.8 (11.5-15.5) % Plt Count 350 (150-450) k/uL MPV 7.4 Neutrophils % 95 % Lymphocytes % 3 % Monocytes % 1 % Eosinophils % 1 % Basophils % 0 % Neutrophils # 12.9 H (1.3-7.7) k/uL Lymphocytes # 0.4 L (1.0-4.8) k/uL Monocytes # 0.1 (0-1.0) k/uL Eosinophils # 0.1 (0-0.7) k/uL Basophils # 0.0 (0-0.2) k/uL Macrocytosis Slight Sodium 138 (137-145) mmol/L Potassium 4.4 (3.5-5.1) mmol/L Chloride 103 (98-107) mmol/L Carbon Dioxide 32 H (22-30) mmol/L Anion Gap 3 mmol/L BUN 28 H (9-20) mg/dL Creatinine 0.95 (0.66-1.25) mg/dL Est GFR (CKD-EPI)AfAm >90 (>60 ml/min/1.73 sqM) Est GFR (CKD-EPI)NonAf 83 (>60 ml/min/1.73 sqM) Glucose 153 H (74-99) mg/dL Plasma Lactic Acid Catrachito 1.8 (0.7-2.0) mmol/L Calcium 8.8 (8.4-10.2) mg/dL Total Bilirubin 0.5 (0.2-1.3) mg/dL AST 23 (17-59) U/L ALT 19 (4-49) U/L Alkaline Phosphatase 74 (38-126) U/L Total Protein 6.0 L (6.3-8.2) g/dL Albumin 3.6 (3.5-5.0) g/dL Lipase 63 (23-300) U/L Disposition <Bishop Frank - Last Filed: 02/18/20 15:13> Is patient prescribed a controlled substance at d/c from ED?: No <Quoc Chapman - Last Filed: 02/18/20 18:39> Clinical Impression: Constipation, Dehydration Disposition: HOME SELF-CARE Condition: Good Instructions (If sedation given, give patient instructions): Dehydration (ED), Constipation (ED), High Fiber Diet (ED) Referrals: Sruthi Duarte MD [Primary Care Provider] - 1-2 days
--- NOTE | 2020-02-18 14:15 | XR ---
EXAMINATION TYPE: XR abdomen 1V DATE OF EXAM: 02/18/2020 2:05 PM CLINICAL HISTORY: History of lung cancer with pain and constipation. TECHNIQUE: Two Upright KUB images of the abdomen are obtained. COMPARISON: CT chest abdomen and pelvis November 09, 2019. FINDINGS: Air-fluid level in nondistended stomach Scattered gas is seen in slightly prominent small a nd large bowel loops with scattered air-fluid levels. No abnormally dilated small bowel loops clearly seen. There is no visceromegaly or mildly or pneumoperitoneum appreciated. The lung bases are clear. Degenerative spurring and disc space narrowing throughout the lumbar spine redemonstrated. Moderate joint space loss in both hips. IMPRESSION: Overall nonspecific but favor nonobstructive bowel gas pattern.
[2020-02-18 14:48] LABS: ALT 19 U/L (4-49); AST 23 U/L (17-59); African American GFR (CKD) >90 (>60 ml/min/1.73 sqM); Albumin 3.6 g/dL (3.5-5.0); Alkaline Phosphatase 74 U/L (38-126); Anion Gap 3 mmol/L; Blood Urea Nitrogen 28 mg/dL (9-20); Calcium 8.8 mg/dL (8.4-10.2); Carbon Dioxide 32 mmol/L (22-30); Chloride 103 mmol/L (98-107); Glucose 153 mg/dL (74-99); Lipase 63 U/L (23-300); Non-African American GFR(CKD) 83 (>60 ml/min/1.73 sqM); Potassium 4.4 mmol/L (3.5-5.1); Sodium 138 mmol/L (137-145); Total Bilirubin 0.5 mg/dL (0.2-1.3)
[2020-02-18 14:54] LABS: Basophils % (A) 0 %; Eosinophils # (A) 0.1 k/uL (0-0.7); Eosinophils % (A) 1 %; HCT 35.8 % (39.0-53.0); HGB 11.5 gm/dL (13.0-17.5); Lymphocytes # (A) 0.4 k/uL (1.0-4.8); Lymphocytes % (A) 3 %; MCH 32.8 pg (25.0-35.0); Macrocytosis Slight; Mean Platelet Volume 7.4; Monocytes # (A) 0.1 k/uL (0-1.0); Monocytes % (A) 1 %; Neutrophils # (A) 12.9 k/uL (1.3-7.7); Neutrophils % (A) 95 %; Platelet Count 350 k/uL (150-450); RDW 14.8 % (11.5-15.5); WBC 13.5 k/uL (3.8-10.6)
[2020-02-18] MEDS ORDERED: MORPHINE SULFATE 4 MG/ML SYRINGE IVP STA (15:05)
[2020-02-18 15:10] LABS: MCV 102.3 fL (80.0-100.0)
[2020-02-18] MEDS ORDERED: SODIUM CHLORIDE 0.9% 1,000 ML IV STA ×2 (16:10)
--- NOTE | 2020-02-18 17:49 | CT ---
EXAMINATION TYPE: CT abdomen pelvis w con DATE OF EXAM: 02/18/2020 COMPARISON: 11/09/2019 INDICATION: Abdominal pain with constipation. DLP: 800.7 mGycm, Automated exposure control for dose reduction was used. CONTRAST: 100 mL of Isovue 300. Study performed without Oral Contrast TECHNIQUE: Axial images were obtained from above the diaphragm to the pubic rami in the axial plane a t 5 mm thick sections. Reconstructed images are reviewed on the computer in the coronal plane. FINDINGS: Limited CT sections are obtained the lung bases. The lung bases are clear. CT ABDOMEN: Liver: Normal Spleen: Normal Pancreas: Normal Adrenal glands: Minimal diffuse thickening of the adrenal glands is noted. Small adenoma are not excl uded. Early metastatic lesion is cannot be excluded Gallbladder: Gallstone is evident. Kidneys: No masses are evident. No hydronephrosis is present. There is a 2.1 cm cyst on the posteri or lateral right mid kidney measuring 13 Hounsfield units. Delayed images were obtained through the kidneys, which remain unremarkable. Aorta: Vascular calcification is within the aorta. Is fusiform prominence mid abdominal aorta measur ing 2.8 cm greatest AP dimension. Inferior vena cava: Normal. CT PELVIS: Multiple small bowel loops have fluid and are dilated greater in the pelvis. There is fluid within th e colon. More proximal small bowel loops have a normal caliber. Clinical consideration for gastroente ritis is recommended. The studies performed without oral contrast limiting bowel evaluation. Appendix: Not visualized. No suspicious dilated tubular structure or inflammatory changes evident. Urinary bladder: Normal. Genitourinary structures: Prostate is slightly prominent. Osseous structures: No suspicious lytic or sclerotic lesions. Facet degenerative changes are through the lower lumbar spine. There are some sclerotic areas within the L2-L4 lumbar vertebral levels. This is somewhat patchy in the L2 level. Metastasis is not excluded at this level. Findings could correla te with PET/CT findings IMPRESSIONS: 1. Cholelithiasis. 2. Right renal cyst. 3. Mild fusiform prominence mid abdominal aorta with an AP diameter of 2.8 cm. 4. Gastroenteritis. Clinical correlation recommended. 5. Suspected developing lumbar metastatic lesions.
[2020-02-18 19:13] VITALS: BP 169/95; PULSE 96; RESP 20; TEMP 98.2
== END 2020-02-18 18:57 | disposition home or self-care (01) ==
LOC: EC 12:56
DX: K59.00 Constipation, unspecified (principal); E86.0 Dehydration; C34.90 Malignant neoplasm of unspecified part of unspecified bronchus or lung; C79.9 Secondary malignant neoplasm of unspecified site; D75.89 Other specified diseases of blood and blood-forming organs; I10 Essential (primary) hypertension; D72.829 Elevated white blood cell count, unspecified; I25.119 Atherosclerotic heart disease of native coronary artery with unspecified angina pectoris; E78.5 Hyperlipidemia, unspecified; E11.9 Type 2 diabetes mellitus without complications; M19.042 Primary osteoarthritis, left hand; M19.041 Primary osteoarthritis, right hand; F41.9 Anxiety disorder, unspecified; I25.2 Old myocardial infarction; F17.200 Nicotine dependence, unspecified, uncomplicated; Z79.899 Other long term (current) drug therapy; Z79.84 Long term (current) use of oral hypoglycemic drugs; Z79.82 Long term (current) use of aspirin; Z79.02 Long term (current) use of antithrombotics/antiplatelets; Z96.651 Presence of right artificial knee joint
CPT/HCPCS: 36415; 80053; 83605; 83690; 85025; 74018; 74177; 99284; 96374; 96361; J2270; Q9967

== ENCOUNTER → 2020-04-11 | Outpatient (CLI) | payer MEDICARE ==
--- NOTE | 2020-04-11 12:21 | PE ---
EXAMINATION TYPE: PET CT fusion skull to thigh DATE OF EXAM: 04/11/2020 COMPARISON: Prior PET/CT January 11, 2020 and older studies. HISTORY: Left-sided advanced age lung cancer treated with radiation and chemotherapy. TECHNIQUE: Following the intravenous administration of 9.48 mCi of F-18 FDG, whole body images are p erformed from the skull base to the midthigh. Images are reviewed on the computer in the coronal, ax ial, and sagittal planes. Reconstructed rotating images are created on independent workstation and r eviewed on the computer. A localization and attenuation correction CT is performed in conjunction w ith the PET scan. Blood glucose level equals 121. SCAN: Subsequent Scan FINDINGS: SKULL BASE AND NECK: No new areas of abnormal hypermetabolic uptake. CHEST, MEDIASTINUM, AND HILAR REGION: No recurrent hypermetabolic thoracic adenopathy. Persistent sma ll nodularity with surrounding fluid right paratracheal region not significantly changed from prior. Background mild to moderate underlying emphysematous changes redemonstrated. No new areas of suspicio us hypermetabolic uptake. ABDOMEN AND PELVIS: Persistent hypermetabolic right adrenal 3.9 x 2.6 cm mass axial image 168, Max E[place] V is 7.35 on current study. Nonspecific diffuse bowel uptake more prominent than prior study including involvement right colon wi th there is abnormal wall thickening. Consider inflammatory or infectious etiology. Neoplasm should b e excluded with colonoscopy if it has not been performed in last 3 years. OSSEOUS STRUCTURES: Osseous metastatic disease redemonstrated. Marked uptake and sclerotic L5 vertebr a redemonstrated. There is some increased uptake T12-L2 vertebra slightly more prominent from prior. Persistent hypermetabolic uptake in anterolateral left mid rib image 105. Improving hypermetabolic up take right hip at site of dense sclerotic lesion intertrochanteric level. Scattered additional smalle r sclerotic lesions. OTHER CT: Right frontal parietal craniotomy change redemonstrated. Moderate calcified plaque bilateral carotid bulb level. Nasal septum deviated to left of midline. Mild/moderate underlying emphysematous change. There is severe three-vessel coronary artery calcifica tion and/or stents. Small pericardial effusion stable. Mild cardiomegaly. Small degree of subareolar gynecomastia. Dependent small gallstone. Stable low dense thickening to left adrenal gland consistent with benign l ipid rich hyperplasia. Stable 2.5 cm thin-walled cyst right kidney posteriorly axial image 163. Moder ate to severe atherosclerotic change in ectatic abdominal aorta without greater than 3.0 cm aneurysm similar to prior. Mildly Enlarged prostate gland consistent with BPH. A few sigmoid colonic diverticu la. Heterotopic ossification and facet arthropathy in the lower lumbar spine. IMPRESSION: Osseous metastatic disease redemonstrated, likely some interval progression. Slight worse titus right adrenal metastatic lesion. No new active metastatic disease otherwise seen. Nonspecific wo rsening diffuse bowel uptake, correlate clinically.
== END | disposition home or self-care (01) ==
LOC: RADPETMAIN 07:28
PROVIDERS: ATTEND Internal Medicine Hematology & Oncology
DX: C79.51 Secondary malignant neoplasm of bone (principal); C34.81 Malignant neoplasm of overlapping sites of right bronchus and lung
CPT/HCPCS: 78815; A9552

== ENCOUNTER → 2020-04-22 | Outpatient (CLI) | payer MEDICARE ==
--- NOTE | 2020-04-22 10:45 | MR ---
EXAMINATION TYPE: MR brain wo/w con DATE OF EXAM: 04/22/2020 COMPARISON: 02/12/2020 HISTORY: secondary malignant neoplasm brain TECHNIQUE: Multiplanar, multisequence images of the brain and brainstem is performed without and with IV contras t, utilizing 7 mL intravenous Gadavist . FINDINGS: Diffusion weighted images demonstrate no evidence of a recent infarct or other diffusion ab normality. There is no extra-axial fluid collection or significant white matter signal abnormality. The ventricular system and cisternal spaces are normal in size and appearance. The brain volume is age appropriate. Midline structures demonstrate normal morphology. The craniocervical junction appears within normal limits. Changes of chronic sinusitis noted. Postsurgical changes involving the calvarium. The previously noted 1.1 cm enhancing lesion left cereb ellum has resolved. No new enhancing lesions. Incidental note made of a venous angioma right parietal white matter. There is a fat attenuation lesion involving the posterior soft tissues of the left nec k measuring 1.4 cm suggestive of a small lipoma. Fat saturation noted. No enhancement. Nonspecific areas of abnormal signal within the white matter bilaterally are stable from the prior ex am and likely in the basis of remote ischemia. Area of abnormal signal involving the posterior right parietal lobe compatible with encephalomalacia. IMPRESSION: 1. Interval resolution of the 1.1 cm ring-enhancing lesion left cerebellum compatible with response t o therapy. 2. Stable nonspecific white matter changes likely on the basis of remote white matter ischemia.
== END | disposition home or self-care (01) ==
LOC: RADMRIMAIN 09:15
PROVIDERS: ATTEND Radiology Radiation Oncology
DX: C34.11 Malignant neoplasm of upper lobe, right bronchus or lung (principal); C79.31 Secondary malignant neoplasm of brain; C79.51 Secondary malignant neoplasm of bone; C77.9 Secondary and unspecified malignant neoplasm of lymph node, unspecified; Z92.21 Personal history of antineoplastic chemotherapy; Z92.3 Personal history of irradiation
CPT/HCPCS: 70553; A9585

== ENCOUNTER 2020-06-14 16:51 | Emergency (ER) | payer MEDICARE ==
[2020-06-14 16:57] VITALS: BP 178/93; PULSE 100; RESP 18; TEMP 97.5
--- NOTE | 2020-06-14 16:58 | ED ---
General Adult HPI <Carter Garcia - Last Filed: 06/14/20 16:56> <Samuel Villalobos - Last Filed: 06/14/20 20:26> - General Stated complaint: Constipation - History of Present Illness Initial comments: Patient was seen as medical screen for advanced triage purposes: 69-year-old male with past medical history of lung cancer, CAD, hyperlipidemia, hypertension, [place] presents to the emergency department for constipation. States he has not had a bowel movement for 5 days. States he is also having abdominal discomfort. Patient reports that he called his cancer doctor who told him to take some medications for this but he wanted to be seen in the emergency room. Patient had chemo on Tuesday. Patient also changed from Percocet to morphine on which he thinks could be contributing. Patient denies any fevers. Patient has no other complaints at this time including shortness of breath, chest pain, nausea or vomiting, headache, or visual changes. (Carter Garcia) Patient presents the ED stating that he has been constipated and has not had a bowel movement for the past 5 days. Patient reports having mild diffuse lower abdominal pain as well. Patient states that he has lung cancer, and he states that he last received chemotherapy treatment 4 days ago. Patient states that he also had his pain medication changed from Percocet to morphine 2 days ago. Patient states that he has had issues with constipation in the past. Patient denies any prior abdominal surgery. Patient denies trauma or injury, fever or chills, headache, focal neuro deficit, chest pain, dyspnea, cough or cold symptoms, dizziness, upper abdominal pain, back pain, nausea or vomiting, diarrhea, bloody or melanotic stool, rectal pain, dysuria/hematuria/urinary frequency/urinary symptoms, decreased urine output, or any other symptoms or complaints. Patient states that he has tried taking Mylanta and prune juice at home without any results. (Samuel Villalobos) - Related Data Home Medications Medication Instructions Recorded Confirmed Clopidogrel [Plavix] 75 mg PO DAILY 01/11/14 02/11/20 glipiZIDE [Glucotrol] 10 mg PO BID 01/11/14 02/11/20 lisinopriL [Zestril] 10 mg PO DAILY 01/11/14 02/11/20 Aspirin [Adult Low Dose Aspirin EC] 81 mg PO DAILY 07/06/19 02/11/20 Atorvastatin [Lipitor] 40 mg PO HS 07/06/19 02/11/20 Dapagliflozin Propanediol [Farxiga] 10 mg PO DAILY 07/06/19 02/11/20 Fish Oil/Dha/Epa [Fish Oil 1,200 4,800 mg PO DAILY 07/06/19 02/11/20 mg Fish Oil] Metoprolol Tartrate [Lopressor] 50 mg PO HS 07/06/19 02/11/20 metFORMIN HCL 1,000 mg PO BID 07/06/19 02/11/20 sitaGLIPtin [Januvia] 100 mg PO DAILY 07/06/19 02/11/20 LORazepam [Ativan] 1 mg PO TID PRN 09/14/19 02/11/20 Ondansetron [Zofran] 4 mg PO Q8HR PRN 09/14/19 02/11/20 Sennosides/Docusate Sodium [Senna 1 - 2 tab PO BID PRN 09/14/19 02/11/20 Plus 8.6-50 mg Softgel] Zolpidem Tartrate [Ambien] 10 mg PO HS 09/14/19 02/11/20 Potassium 1 tab PO DAILY 10/03/19 02/11/20 Gabapentin 300 mg PO BID 02/05/20 02/11/20 Previous Rx's Medication Instructions Recorded Calcium Carbonate/Vitamin D3 1 each PO DAILY #30 tablet 09/15/19 [Calcium 500-Vit D3 5 Mcg (200 Iu)] Magnesium Oxide [Mag-Ox] 250 mg PO TID #30 tablet 09/15/19 oxyCODONE HCL/ACETAMINOPHEN 1 tab PO Q6HR PRN 3 Days #12 tab 01/13/20 [Percocet 7.5-325 mg] Allergies Allergy/AdvReac Type Severity Reaction Status Date / Time No Known Allergies Allergy Verified 06/14/20 16:58 Review of Systems ROS Other: All systems not noted in ROS Statement are negative. <Carter Garcia - Last Filed: 06/14/20 16:56> ROS Other: All systems not noted in ROS Statement are negative. <Samuel Villalobos - Last Filed: 06/14/20 20:26> ROS Statement: Those systems with pertinent positive or pertinent negative responses have been documented in the HPI. 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 PET scan Past Anesthesia/Blood Transfusion Reactions: No Reported Reaction Date of Last Stent Placement:: 2013 Past Psychological History: No Psychological Hx Reported, Anxiety Smoking Status: Current every day smoker Past Alcohol Use History: None Reported Past Drug Use History: Cocaine - Past Family History Father Family Medical History: Cancer Additional Family Medical History / Comment(s): AT 84. MULTIPLE MYELOMA. Mother Family Medical History: Dementia Additional Family Medical History / Comment(s): AT AGE 85 Brother(s) Family Medical History: Cancer Additional Family Medical History / Comment(s): LEUKEMIA. <Carter Garcia P - Last Filed: 06/14/20 16:56> General Exam Limitations: no limitations General appearance: alert, in no apparent distress Head exam: Present: atraumatic, normocephalic Eye exam: Present: normal appearance, EOMI ENT exam: Present: mucous membranes moist Neck exam: Present: other (Trachea is in midline) Respiratory exam: Present: normal lung sounds bilaterally. Absent: respiratory distress, wheezes, rales, rhonchi, stridor Cardiovascular Exam: Present: regular rate, normal rhythm, normal heart sounds, other (Normal radial pulses bilaterally) GI/Abdominal exam: Present: soft, hypoactive bowel sounds, other (Mild generalized abdominal tenderness). Absent: distended, guarding, rebound Extremities exam: Absent: pedal edema Back exam: Absent: tenderness Neurological exam: Present: alert, oriented X3. Absent: motor sensory deficit Psychiatric exam: Present: normal affect, normal mood Skin exam: Present: warm, dry, intact, normal color <Samuel Villalobos - Last Filed: 06/14/20 20:26> Course <Samuel Villalobos - Last Filed: 06/14/20 20:26> Vital Signs 06/14/20 16:54 Temperature 97.5 F L Pulse Rate 100 Respiratory 18 Rate Blood Pressure 178/93 O2 Sat by Pulse 98 Oximetry - Reevaluation(s) Reevaluation #1: 06/14/20 20:21 Patient did have some results/bowel movement with enema administration in the ED. Patient also states that he was able to release some gas, and he states that his abdominal discomfort has now improved. Patient denies development of any new symptoms while in the ED. Patient's abdomen remains soft and without any surgical signs on examination. Patient is aware of his test results, and he feels comfortable going home at this time. Patient states that he has magnesium citrate, as well as stool softeners at home, which he will continue to take as prescribed. Patient was also instructed to try to avoid or cut down on the amount of narcotic pain medication that he is taking. Patient was counseled about constipation and abdominal pain, and he was clearly explained return and follow-up instructions. Patient was instructed to follow up closely with his primary care provider. Patient was instructed to have a low threshold for return to the ED should his symptoms worsen. Patient was instructed to follow up closely with his primary care provider. Patient feels comfortable with this plan. (Samuel Villalobos) Medical Decision Making - Lab Data Result diagrams: 06/14/20 17:59 06/14/20 18:41 - Radiology Data Radiology results: report reviewed (Abdominal x-rays: Moderate colonic stool and gas, nonobstructive bowel gas pattern) <Samuel Villalobos - Last Filed: 06/14/20 20:26> - Medical Decision Making Patient's labs are fairly unremarkable. Patient's abdominal x-rays do not show findings of bowel obstruction. Patient's abdomen is soft and without any surgical signs on examination. Patient is afebrile and without leukocytosis. Patient has had results/bowel movement with enema administration in the ED, and he feels comfortable going home at this time. Patient states that he has laxatives and stool softeners at home. Will discharge patient home at this time with clear return and follow up instructions given. (Samuel Villalobos) - Lab Data Lab Results 06/14/20 06/14/20 06/14/20 Range/Units 17:59 18:25 18:41 WBC 7.1 (3.8-10.6) k/uL RBC 3.50 L (4.30-5.90) m/uL Hgb 12.3 L (13.0-17.5) gm/dL Hct 35.3 L (39.0-53.0) % MCV 100.8 H (80.0-100.0) fL MCH 35.2 H (25.0-35.0) pg MCHC 34.9 (31.0-37.0) g/dL RDW 14.4 (11.5-15.5) % Plt Count 278 (150-450) k/uL MPV 7.7 Neutrophils % 89 % Lymphocytes % 6 % Monocytes % 2 % Eosinophils % 3 % Basophils % 0 % Neutrophils # 6.3 (1.3-7.7) k/uL Lymphocytes # 0.4 L (1.0-4.8) k/uL Monocytes # 0.1 (0-1.0) k/uL Eosinophils # 0.2 (0-0.7) k/uL Basophils # 0.0 (0-0.2) k/uL Macrocytosis Slight Sodium 129 L (137-145) mmol/L Potassium 4.7 (3.5-5.1) mmol/L Chloride 91 L (98-107) mmol/L Carbon Dioxide 30 (22-30) mmol/L Anion Gap 8 mmol/L BUN 24 H (9-20) mg/dL Creatinine 0.89 (0.66-1.25) mg/dL Est GFR (CKD-EPI)AfAm >90 (>60 ml/min/1.73 sqM) Est GFR (CKD-EPI)NonAf 89 (>60 ml/min/1.73 sqM) Glucose 120 H (74-99) mg/dL Calcium 9.4 (8.4-10.2) mg/dL Total Bilirubin 0.7 (0.2-1.3) mg/dL AST 28 (17-59) U/L ALT 14 (4-49) U/L Alkaline Phosphatase 90 (38-126) U/L Total Protein 6.4 (6.3-8.2) g/dL Albumin 4.0 (3.5-5.0) g/dL Lipase 92 (23-300) U/L Urine Color Yellow Urine Appearance Clear (Clear) Urine pH 6.5 (5.0-8.0) Ur Specific [place] 1.014 (1.001-1.035) Urine Protein 2+ H (Negative) Urine Glucose (UA) 4+ H (Negative) Urine Ketones Negative (Negative) Urine Blood Negative (Negative) Urine Nitrite Negative (Negative) Urine Bilirubin Negative (Negative) Urine Urobilinogen <2.0 (<2.0) mg/dL Ur Leukocyte Esterase Negative (Negative) Urine RBC 1 (0-5) /hpf Urine WBC <1 (0-5) /hpf Ur Squamous Epith Cells <1 (0-4) /hpf Disposition <Carter Garcia - Last Filed: 06/14/20 16:56> Is patient prescribed a controlled substance at d/c from ED?: No Time of Disposition: 20:26 <Samuel Villalobos - Last Filed: 06/14/20 20:26> Clinical Impression: Constipation, Abdominal pain Disposition: HOME SELF-CARE Condition: Stable Instructions (If sedation given, give patient instructions): Abdominal Pain (ED), Constipation (ED) Additional Instructions: Return to the ER immediately should you develop new or worsening pain, a fever, vomiting, shortness of breath, feeling dizzy or faint, or new or worsening symptoms. Follow up closely with your primary care provider. Referrals: Sruthi Duarte MD [Primary Care Provider] - 1-2 days
[2020-06-14] MEDS: MORPHINE SULFATE 4 MG/ML SYRINGE IVP STA (18:14)
[2020-06-14 18:15] LABS: Basophils % (A) 0 %; Eosinophils # (A) 0.2 k/uL (0-0.7); Eosinophils % (A) 3 %; HCT 35.3 % (39.0-53.0); HGB 12.3 gm/dL (13.0-17.5); Lymphocytes # (A) 0.4 k/uL (1.0-4.8); Lymphocytes % (A) 6 %; MCH 35.2 pg (25.0-35.0); MCHC 34.9 g/dL (31.0-37.0); MCV 100.8 fL (80.0-100.0); Macrocytosis Slight; Mean Platelet Volume 7.7; Monocytes # (A) 0.1 k/uL (0-1.0); Monocytes % (A) 2 %; Neutrophils # (A) 6.3 k/uL (1.3-7.7); Neutrophils % (A) 89 %; Platelet Count 278 k/uL (150-450); RDW 14.4 % (11.5-15.5); WBC 7.1 k/uL (3.8-10.6)
[2020-06-14 18:35] LABS: Appearance,Urine Clear (Clear); Bilirubin,Urine Negative (Negative); Blood,Urine Negative (Negative); Color,Urine Yellow; Glucose,Urine (UA) 4+ (Negative); Ketones,Urine Negative (Negative); Leukocyte Esterase,Urine Negative (Negative); Nitrite,Urine Negative (Negative); PH, Urine 6.5 (5.0-8.0); Protein,Urine 2+ (Negative); RBC,Urine 1 /hpf (0-5); Specific Gravity,Urine 1.014 (1.001-1.035); Squamous Epithelial Cell,Urine <1 /hpf (0-4); Urobilinogen,Urine <2.0 mg/dL (<2.0); WBC,Urine <1 /hpf (0-5)
--- NOTE | 2020-06-14 18:37 | XR ---
EXAMINATION TYPE: XR abdomen complete w decub DATE OF EXAM: 06/14/2020 COMPARISON: 02/18/2020. HISTORY: Constipation. (. TECHNIQUE: Supine, upright, and left side down lateral decubitus views of the abdomen are obtained. FINDINGS: There is no evidence for pneumoperitoneum. There is moderate colonic distention with stool and gas with a nonobstructive bowel gas pattern. No sizeable air fluid levels. No mass effects are seen. No unusual calcifications. IMPRESSION: Moderate colonic stool and gas. Nonobstructive bowel gas pattern.
[2020-06-14 18:58] LABS: ALT 14 U/L (4-49); AST 28 U/L (17-59); African American GFR (CKD) >90 (>60 ml/min/1.73 sqM); Alkaline Phosphatase 90 U/L (38-126); Anion Gap 8 mmol/L; Blood Urea Nitrogen 24 mg/dL (9-20); Calcium 9.4 mg/dL (8.4-10.2); Carbon Dioxide 30 mmol/L (22-30); Chloride 91 mmol/L (98-107); Glucose 120 mg/dL (74-99); Lipase 92 U/L (23-300); Non-African American GFR(CKD) 89 (>60 ml/min/1.73 sqM); Potassium 4.7 mmol/L (3.5-5.1); Sodium 129 mmol/L (137-145); Total Bilirubin 0.7 mg/dL (0.2-1.3); Total Protein 6.4 g/dL (6.3-8.2)
== END 2020-06-14 20:39 | disposition home or self-care (01) ==
LOC: EC 16:51
DX: K59.00 Constipation, unspecified (principal); R10.84 Generalized abdominal pain; C34.90 Malignant neoplasm of unspecified part of unspecified bronchus or lung; I25.10 Atherosclerotic heart disease of native coronary artery without angina pectoris; E78.5 Hyperlipidemia, unspecified; I10 Essential (primary) hypertension; F17.200 Nicotine dependence, unspecified, uncomplicated; F41.9 Anxiety disorder, unspecified; F14.90 Cocaine use, unspecified, uncomplicated; E11.9 Type 2 diabetes mellitus without complications; I25.2 Old myocardial infarction; Z79.82 Long term (current) use of aspirin; Z79.02 Long term (current) use of antithrombotics/antiplatelets; Z79.84 Long term (current) use of oral hypoglycemic drugs
CPT/HCPCS: 36415; 80053; 83690; 85025; 81001; 74021; 99284; 96374; J2270

== ENCOUNTER → 2020-07-09 | Outpatient (CLI) | payer MEDICARE ==
--- NOTE | 2020-07-09 15:20 | MR ---
EXAMINATION TYPE: MR brain wo/w con DATE OF EXAM: 07/09/2020 COMPARISON: Prior MRI brain April 22, 2020 and older studies HISTORY: F/U metastatic cancer to brain treatment, patient states no new symptoms TECHNIQUE: Multiplanar, multisequence images of the brain and brainstem is performed without and with IV contras t, utilizing 7 mL intravenous Gadavist . FINDINGS: Diffusion weighted images demonstrate no evidence of a recent infarct or other new diffusio n abnormality. Mild ventricular and sulcal prominence redemonstrated. Scattered small foci of T2 hype rintensity throughout the white matter bilaterally redemonstrated. Midline structures redemonstrate normal morphology. The craniocervical junction appears within hortensia l limits. Postsurgical change right parietal lobe with adjacent susceptibility artifact redemonstrate d. 4 mm left cerebellar focus image 23 and coronal image 74 slightly better seen or larger from most recent MRI, improved from February 12, 2020. No new significant edema at this level. Persistent wrap a round artifact makes evaluation slightly suboptimal. No additional metastatic foci clearly seen. IMPRESSION: Slightly more prominent or recurrent 4 mm left cerebellar metastatic lesion. No definitiv e new metastatic lesions are identified.
== END | disposition home or self-care (01) ==
LOC: RADMRIMAIN 12:19
PROVIDERS: ATTEND Radiology Radiation Oncology
DX: C79.31 Secondary malignant neoplasm of brain (principal)
CPT/HCPCS: 70553; A9585

== ENCOUNTER → 2020-08-15 | Outpatient (CLI) | payer MEDICARE ==
--- NOTE | 2020-08-18 21:59 | PE ---
EXAMINATION TYPE: PET CT fusion skull to thigh DATE OF EXAM: 08/15/2020 COMPARISON: Prior PET/CT April 11, 2020 and older studies HISTORY: Advanced stage left-sided lung cancer diagnosed July 2019 currently undergoing chemotherapy a nd radiation treatment. TECHNIQUE: Following the intravenous administration of 12.46 mCi of F-18 FDG, whole body images are performed from the skull base to the midthigh. Images are reviewed on the computer in the coronal, a xial, and sagittal planes. Reconstructed rotating images are created on independent workstation and reviewed on the computer. A localization and attenuation correction CT is performed in conjunction with the PET scan. Blood glucose level equals 156. SCAN: Subsequent Scan FINDINGS: SKULL BASE AND NECK: New hypermetabolic bilateral supraclavicular lymph nodes, larger in the left ne ck measures 1.6 x 1.5 cm axial image 63, max SUV is 4.42. CHEST, MEDIASTINUM, AND HILAR REGION: Background fairly moderate underlying emphysematous change is r edemonstrated. Recurrent hypermetabolic thoracic lymph nodes. Largest in the AP window measures 2.9 x 2.0 cm axial image 90, max SUV is 3.95. New pleural-based hypermetabolic roughly 1.1 cm nodules axial image 101, max SUV is 2.74. ABDOMEN AND PELVIS: Slightly larger hypermetabolic right adrenal mass axial image 159 measuring 3.9 x 3.4 cm, max SUV is 4.8 versus 7.35 on prior report. New hypermetabolic 2.0 cm left adrenal mass axial image 159. Nonspecific bowel uptake redemonstrated . Normal excretion is seen. OSSEOUS STRUCTURES: Hypermetabolic osseous sclerotic metastatic disease redemonstrated. Significant h ypermetabolic uptake transitional type vertebra lumbosacral junction redemonstrated. Focal uptake rig ht proximal femur sclerotic subtrochanteric lesion axial image 253 current study max SUV is 5.48. Wor sening increased uptake at sclerotic upper lumbar vertebra. OTHER CT: Moderate calcified plaque bilateral carotid bulb level. Nasal septum deviated to left of mi dline. Mild/moderate underlying emphysematous change. There is severe three-vessel coronary artery calcifica tion and/or stents. Small pericardial effusion stable. Mild cardiomegaly. Small degree of subareolar gynecomastia. Tiny right pleural effusion. Dependent small gallstone. Stable low dense thickening to left adrenal gland consistent with benign l ipid rich hyperplasia. Stable 2.5 cm thin-walled cyst right kidney posteriorly axial image 170 curren t study. Moderate to severe atherosclerotic change in ectatic abdominal aorta without greater than 3. 0 cm aneurysm similar to prior. Mildly Enlarged prostate gland consistent with BPH. A few sigmoid col onic diverticula. Heterotopic ossification and facet arthropathy in the lower lumbar spine. IMPRESSION: Negative treatment response. Worsening metastatic disease noted as detailed above.
== END | disposition home or self-care (01) ==
LOC: RADPETMAIN 11:33
PROVIDERS: ATTEND Internal Medicine Hematology & Oncology
DX: C34.92 Malignant neoplasm of unspecified part of left bronchus or lung (principal); C79.51 Secondary malignant neoplasm of bone; C74.92 Malignant neoplasm of unspecified part of left adrenal gland; R59.0 Localized enlarged lymph nodes
CPT/HCPCS: 78815; A9552

== ENCOUNTER → 2020-09-11 | Outpatient (CLI) | payer MEDICARE ==
--- NOTE | 2020-09-11 12:12 | US ---
EXAMINATION TYPE: US venous doppler duplex LE LT DATE OF EXAM: 09/11/2020 11:45 AM COMPARISON: NONE CLINICAL HISTORY: R22.42 Localized swelling, mass and lump, left low. SIDE PERFORMED: Left TECHNIQUE: The lower extremity deep venous system is examined utilizing real time linear array sonog wyatt with graded compression, doppler sonography and color-flow sonography. VESSELS IMAGED: Common Femoral Vein Deep Femoral Vein Greater Saphenous Vein * Femoral Vein Popliteal Vein Small Saphenous Vein * Proximal Calf Veins (* superficial vessels) Left Leg: Negative for DVT, slow flow seen. IMPRESSION: 1. No definite evidence of deep venous thrombosis in the left lower extremity veins. There is however , slow flow seen.
== END | disposition home or self-care (01) ==
LOC: RADUSWWP 10:48
PROVIDERS: ATTEND Internal Medicine Hematology & Oncology
DX: R22.42 Localized swelling, mass and lump, left lower limb (principal)

== ENCOUNTER 2020-10-03 05:55 | Emergency (ER) | payer MEDICARE ==
[2020-10-03 06:04] VITALS: TEMP 97.9
[2020-10-03] MEDS: IPRATROPIUM-ALBUTEROL 3 ML NEB INHALATION STA (06:26)
[2020-10-03] MEDS ORDERED: DILTIAZEM 125 MG in SODIUM CHLORIDE 0.9% 100 ML IV SCH (06:30)
[2020-10-03] MEDS: DILTIAZEM DRIP BOLUS FROM BAG 1 MG SOLN IV ONE (06:37)
[2020-10-03 06:40] LABS: Anisocytosis Slight; Basophils % (A) 0 %; Eosinophils % (A) 0 %; HCT 26.4 % (39.0-53.0); HGB 9.2 gm/dL (13.0-17.5); Lymphocytes # (A) 0.2 k/uL (1.0-4.8); Lymphocytes % (A) 16 %; MCH 36.8 pg (25.0-35.0); MCHC 34.9 g/dL (31.0-37.0); MCV 105.7 fL (80.0-100.0); Macrocytosis Moderate; Mean Platelet Volume 9.8; Monocytes # (A) 0.1 k/uL (0-1.0); Monocytes % (A) 4 %; Neutrophils # (A) 1.2 k/uL (1.3-7.7); Neutrophils % (A) 79 %; Platelet Count 110 k/uL (150-450); RDW 16.4 % (11.5-15.5); WBC 1.5 k/uL (3.8-10.6)
[2020-10-03] MEDS: SODIUM CHLORIDE 0.9% 1,000 ML IV STA ×2 (06:41→07:36)
[2020-10-03 06:51] LABS: ALT 26 U/L (4-49); AST 21 U/L (17-59); African American GFR (CKD) >90 (>60 ml/min/1.73 sqM); Albumin 3.9 g/dL (3.5-5.0); Alkaline Phosphatase 116 U/L (38-126); Anion Gap 10 mmol/L; Blood Urea Nitrogen 29 mg/dL (9-20); Calcium 9.2 mg/dL (8.4-10.2); Carbon Dioxide 29 mmol/L (22-30); Chloride 102 mmol/L (98-107); Creatine Kinase 60 U/L (55-170); Glucose 312 mg/dL (74-99); Magnesium 1.3 mg/dL (1.6-2.3); Non-African American GFR(CKD) 85 (>60 ml/min/1.73 sqM); Potassium 3.6 mmol/L (3.5-5.1); Sodium 141 mmol/L (137-145); Total Bilirubin 0.4 mg/dL (0.2-1.3); Total Protein 6.2 g/dL (6.3-8.2)
[2020-10-03 06:53] LABS: INR 0.8 (<1.2); Prothrombin Time 9.4 sec (9.0-12.0)
--- NOTE | 2020-10-03 07:03 | ED ---
General Adult HPI - General Source: patient, RN notes reviewed Mode of arrival: ambulatory Limitations: no limitations <Carter Garcia - Last Filed: 10/03/20 14:53> <Qian Buchanan - Last Filed: 10/04/20 15:40> - General Chief complaint: Shortness of Breath Stated complaint: EAN Time Seen by Provider: 10/03/20 06:17 - History of Present Illness Initial comments: 70-year-old male with a past medical history of small cell lung cancer last received chemo and a Neulasta shot on Tuesday presents to the emergency room for a chief complaint of shortness of breath. States when he woke up today around 5 AM he was having problems with his breathing. He took an aspirin and metoprolol and stated it did use up. However he wanted to make sure it was not his heart. He denies any chest pain.Patient has no other complaints at this time including shortness of breath, chest pain, abdominal pain, nausea or vomiti ng, headache, or visual changes. (Carter Garcia) - Related Data Home Medications Medication Instructions Recorded Confirmed Clopidogrel [Plavix] 75 mg PO DAILY 01/11/14 02/11/20 glipiZIDE [Glucotrol] 10 mg PO BID 01/11/14 02/11/20 lisinopriL [Zestril] 10 mg PO DAILY 01/11/14 02/11/20 Aspirin [Adult Low Dose Aspirin EC] 81 mg PO DAILY 07/06/19 02/11/20 Atorvastatin [Lipitor] 40 mg PO HS 07/06/19 02/11/20 Dapagliflozin Propanediol [Farxiga] 10 mg PO DAILY 07/06/19 02/11/20 Fish Oil/Dha/Epa [Fish Oil 1,200 4,800 mg PO DAILY 07/06/19 02/11/20 mg Fish Oil] Metoprolol Tartrate [Lopressor] 50 mg PO HS 07/06/19 02/11/20 metFORMIN HCL [Glucophage] 1,000 mg PO BID 07/06/19 02/11/20 sitaGLIPtin [Januvia] 100 mg PO DAILY 07/06/19 02/11/20 LORazepam [Ativan] 1 mg PO TID PRN 09/14/19 02/11/20 Ondansetron [Zofran] 4 mg PO Q8HR PRN 09/14/19 02/11/20 Sennosides/Docusate Sodium [Senna 1 - 2 tab PO BID PRN 09/14/19 02/11/20 Plus 8.6-50 mg Softgel] Zolpidem Tartrate [Ambien] 10 mg PO HS 09/14/19 02/11/20 Potassium 1 tab PO DAILY 10/03/19 02/11/20 Gabapentin 300 mg PO BID 02/05/20 02/11/20 Previous Rx's Medication Instructions Recorded Calcium Carbonate/Vitamin D3 1 each PO DAILY #30 tablet 09/15/19 [Calcium 500-Vit D3 5 Mcg (200 Iu)] Magnesium Oxide [Mag-Ox] 250 mg PO TID #30 tablet 09/15/19 oxyCODONE HCL/ACETAMINOPHEN 1 tab PO Q6HR PRN 3 Days #12 tab 01/13/20 [Percocet 7.5-325 mg] Allergies Allergy/AdvReac Type Severity Reaction Status Date / Time No Known Allergies Allergy Verified 10/03/20 06:04 Review of Systems ROS Other: All systems not noted in ROS Statement are negative. <Carter Garcia - Last Filed: 10/03/20 14:53> ROS Other: All systems not noted in ROS Statement are negative. <Qian Buchanan - Last Filed: 10/04/20 15:40> ROS Statement: Those systems with pertinent positive or pertinent negative responses have been documented in the HPI. 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 PET scan Past Anesthesia/Blood Transfusion Reactions: No Reported Reaction Date of Last Stent Placement:: 2013 Past Psychological History: No Psychological Hx Reported, Anxiety Smoking Status: Current every day smoker Past Alcohol Use History: None Reported Past Drug Use History: Cocaine - Past Family History Father Family Medical History: Cancer Additional Family Medical History / Comment(s): AT 84. MULTIPLE MYELOMA. Mother Family Medical History: Dementia Additional Family Medical History / Comment(s): AT AGE 85 Brother(s) Family Medical History: Cancer Additional Family Medical History / Comment(s): LEUKEMIA. <Carter Garcia P - Last Filed: 10/03/20 14:53> General Exam Limitations: no limitations General appearance: alert, in no apparent distress Head exam: Present: atraumatic, normocephalic, normal inspection Eye exam: Present: normal appearance, PERRL, EOMI. Absent: scleral icterus, conjunctival injection, periorbital swelling ENT exam: Present: normal exam, mucous membranes moist Neck exam: Present: normal inspection. Absent: tenderness, meningismus, lymphadenopathy Respiratory exam: Present: normal lung sounds bilaterally. Absent: respiratory distress, wheezes, rales, rhonchi, stridor Cardiovascular Exam: Present: tachycardia, irregular rhythm GI/Abdominal exam: Present: soft, normal bowel sounds. Absent: distended, tenderness, guarding, rebound, rigid <Carter Garcia P - Last Filed: 10/03/20 14:53> Course Vital Signs 10/03/20 10/03/20 10/03/20 05:59 06:26 06:34 Temperature 97.9 F Pulse Rate 131 H 70 72 Respiratory 22 20 20 Rate Blood Pressure 135/87 O2 Sat by Pulse 99 Oximetry 10/03/20 10/03/20 06:35 08:47 Temperature Pulse Rate 73 69 Respiratory 16 18 Rate Blood Pressure 149/95 168/85 O2 Sat by Pulse 100 99 Oximetry EKG Findings - EKG Comments: EKG Findings:: 0609: A. fib with RVR, ventricular rate 118, QRS duration 90, QTc 451. 0630: Normal sinus rhythm, ventricular rate 72, UT interval 152, QTC 424 <Carter Garcia P - Last Filed: 10/03/20 14:53> Medical Decision Making - Lab Data Result diagrams: 10/03/20 06:31 10/03/20 06:31 <Carter Garcia - Last Filed: 10/03/20 14:53> - Lab Data Result diagrams: 10/03/20 06:31 10/03/20 06:31 <Qian Buchanan - Last Filed: 10/04/20 15:40> - Medical Decision Making Patient initially presents tachycardic in the 130s secondary to atrial fibrillation. IV was started and patient did convert to normal sinus rhythm. Laboratory evaluation was obtained. This revealed pancytopenia likely related to chemotherapy. CMP does show hyperglycemia, patient does have a history of diabetes. Hypomagnesemia is also noted, patient was given oral replacement. Troponin did come back elevated at 0.04. BNP elevated at 2910. He does have peripheral edema as well. CT of the chest was obtained which did not show any evidence of pulmonary embolism. There is a small right-sided pleural effusion and upper lobe emphysematous change noted. Strongly recommended patient be admitted to the hospital. Discussed that he needs to see his philanthropy officer and likely start anticoagulation therapy as well as repeat troponin. However patient is adamant he needs to leave. He is aware that his condition could be life-threatening. Patient is alert and oriented, able to make his own medical decisions. He reports he will follow up with his philanthropy officer by calling today. (Carter Garcia) I was available for consultation in the emergency department. The history and physical exam were done by the midlevel provider. I was consulted for this patients care. I reviewed the case with the midlevel provider and based on their presentation of the patient, I agree with the assessment, medical decision making and plan of care as documented. Risks of leaving AGAINST MEDICAL ADVICE were discussed with the patient. The patient understands the risks, was capable of making his own decisions. She does deem capacity, and continued her request to leave. Patient signs AMA paperwork. He is instructed to return for any new or worsening symptoms, or should he agree to further treatment. Chart was dictated using GLOG dictation software. Attempts were made to correct any dictation errors however some typographical errors may persist. (Qian Buchanan) - Lab Data Lab Results 10/03/20 10/03/20 10/03/20 Range/Units 06:31 06:31 06:31 WBC 1.5 L (3.8-10.6) k/uL RBC 2.50 L (4.30-5.90) m/uL Hgb 9.2 L (13.0-17.5) gm/dL Hct 26.4 L (39.0-53.0) % MCV 105.7 H (80.0-100.0) fL MCH 36.8 H (25.0-35.0) pg MCHC 34.9 (31.0-37.0) g/dL RDW 16.4 H (11.5-15.5) % Plt Count 110 L (150-450) k/uL MPV 9.8 Neutrophils % 79 % Lymphocytes % 16 % Monocytes % 4 % Eosinophils % 0 % Basophils % 0 % Neutrophils # 1.2 L (1.3-7.7) k/uL Lymphocytes # 0.2 L (1.0-4.8) k/uL Monocytes # 0.1 (0-1.0) k/uL Eosinophils # 0.0 (0-0.7) k/uL Basophils # 0.0 (0-0.2) k/uL Manual Slide Review Performed Anisocytosis Slight Macrocytosis Moderate PT 9.4 (9.0-12.0) sec INR 0.8 (<1.2) APTT 20.5 L (22.0-30.0) sec D-Dimer 1.27 H (<0.60) mg/L FEU Sodium 141 (137-145) mmol/L Potassium 3.6 (3.5-5.1) mmol/L Chloride 102 (98-107) mmol/L Carbon Dioxide 29 (22-30) mmol/L Anion Gap 10 mmol/L BUN 29 H (9-20) mg/dL Creatinine 0.92 (0.66-1.25) mg/dL Est GFR (CKD-EPI)AfAm >90 (>60 ml/min/1.73 sqM) Est GFR (CKD-EPI)NonAf 85 (>60 ml/min/1.73 sqM) Glucose 312 H (74-99) mg/dL Calcium 9.2 (8.4-10.2) mg/dL Magnesium 1.3 L (1.6-2.3) mg/dL Total Bilirubin 0.4 (0.2-1.3) mg/dL AST 21 (17-59) U/L ALT 26 (4-49) U/L Alkaline Phosphatase 116 (38-126) U/L Creatine Kinase 60 (55-170) U/L Troponin I (0.000-0.034) ng/mL NT-Pro-B Natriuret Pep pg/mL Total Protein 6.2 L (6.3-8.2) g/dL Albumin 3.9 (3.5-5.0) g/dL 10/03/20 10/03/20 Range/Units 06:31 06:31 WBC (3.8-10.6) k/uL RBC (4.30-5.90) m/uL Hgb (13.0-17.5) gm/dL Hct (39.0-53.0) % MCV (80.0-100.0) fL MCH (25.0-35.0) pg MCHC (31.0-37.0) g/dL RDW (11.5-15.5) % Plt Count (150-450) k/uL MPV Neutrophils % % Lymphocytes % % Monocytes % % Eosinophils % % Basophils % % Neutrophils # (1.3-7.7) k/uL Lymphocytes # (1.0-4.8) k/uL Monocytes # (0-1.0) k/uL Eosinophils # (0-0.7) k/uL Basophils # (0-0.2) k/uL Manual Slide Review Anisocytosis Macrocytosis PT (9.0-12.0) sec INR (<1.2) APTT (22.0-30.0) sec D-Dimer (<0.60) mg/L FEU Sodium (137-145) mmol/L Potassium (3.5-5.1) mmol/L Chloride (98-107) mmol/L Carbon Dioxide (22-30) mmol/L Anion Gap mmol/L BUN (9-20) mg/dL Creatinine (0.66-1.25) mg/dL Est GFR (CKD-EPI)AfAm (>60 ml/min/1.73 sqM) Est GFR (CKD-EPI)NonAf (>60 ml/min/1.73 sqM) Glucose (74-99) mg/dL Calcium (8.4-10.2) mg/dL Magnesium (1.6-2.3) mg/dL Total Bilirubin (0.2-1.3) mg/dL AST (17-59) U/L ALT (4-49) U/L Alkaline Phosphatase (38-126) U/L Creatine Kinase (55-170) U/L Troponin I 0.040 H* (0.000-0.034) ng/mL NT-Pro-B Natriuret Pep 2910 pg/mL Total Protein (6.3-8.2) g/dL Albumin (3.5-5.0) g/dL Disposition Is patient prescribed a controlled substance at d/c from ED?: No Time of Disposition: 08:36 <Carter Garcia P - Last Filed: 10/03/20 14:53> <Qian Buchanan A - Last Filed: 10/04/20 15:40> Clinical Impression: New onset atrial fibrillation, Elevated troponin, Elevated brain natriuretic peptide (BNP) level, Hyperglycemia, Dyspnea, Neutropenia Disposition: Left Against Medical Advice Condition: Undetermined Instructions (If sedation given, give patient instructions): A-fib (Atrial Fibrillation) (ED) Additional Instructions: You are leaving AGAINST MEDICAL ADVICE, it was highly advised that you stay in the hospital as your condition could be life-threatening. Please call your philanthropy officer and primary care doctor today to follow-up. If you have worsening symptoms please return to the emergency room. Referrals: Sruthi uDarte MD [Primary Care Provider] - 1-2 days
[2020-10-03 07:20] LABS: Partial Thromboplastin Time 20.5 sec (22.0-30.0)
[2020-10-03] MEDS: ASPIRIN 81 MG PO STA (07:38)
--- NOTE | 2020-10-03 08:06 | CT ---
EXAMINATION TYPE: CT angio chest DATE OF EXAM: 10/03/2020 COMPARISON: 11/09/2019 HISTORY: Chest pain, EAN CT DLP: 260.5 mGycm CONTRAST: CT chest with contrast and 3D reconstruction with MIP imaging is performed without and with IV Contra st, patient injected with 100 ml mL of Isovue 370. Contrast-enhanced CT of the chest was performed through the course of the pulmonary arteries with angel luis g and mediastinal window settings submitted. 3D reconstruction with MIP imaging was also performed. PULMONARY ARTERIES: The pulmonary arteries and their major tributaries are patent. I do not see nirmal dence for sizable filling defect to suggest pulmonary embolic process. LUNGS: There are small right-sided pleural effusion and sliver effusion. There is upper lobe emphysem atous change noted. Pleural-based density left upper lobe with underlying rib lesion. MEDIASTINUM: Thoracic aorta is of normal caliber,however, evaluation is limited given timing of the contrast bolus. If there is concern for thoracic aortic pathology consider BARRON. Correlate clinicall y . The heart is enlarged. No evidence for mediastinal mass. AP window adenopathy measuring 3.2 cm. Subcarinal adenopathy measuring 3.6 cm. HILAR STRUCTURES: No evidence for mass. No hilar lymph nodes greater than 1 cm. UPPER ABDOMEN: No significant abnormality is seen. IMPRESSION: 1. No evidence for Pulmonary embolism at this time.
[2020-10-03] MEDS: MAGNESIUM OXIDE 400 MG TAB PO STA (08:45)
[2020-10-03 08:48] VITALS: BP 168/85; PULSE 69; RESP 18
== END 2020-10-03 08:48 | disposition left against medical advice (07) ==
LOC: EC 05:55
DX: I48.20 Chronic atrial fibrillation, unspecified (principal); E11.65 Type 2 diabetes mellitus with hyperglycemia; D70.9 Neutropenia, unspecified; R77.8 Other specified abnormalities of plasma proteins; F17.200 Nicotine dependence, unspecified, uncomplicated; I25.2 Old myocardial infarction; I10 Essential (primary) hypertension; I25.10 Atherosclerotic heart disease of native coronary artery without angina pectoris; E78.5 Hyperlipidemia, unspecified; Z79.899 Other long term (current) drug therapy; Z79.82 Long term (current) use of aspirin
CPT/HCPCS: 99285; 96360; 96361; 36415; 94640; 93005; 85379; 83880; 80053; 82550; 83735; 84484; 85025; 85610; 85730; 71275; Q9967

== ENCOUNTER → 2020-10-09 | Outpatient (CLI) | payer MEDICARE ==
--- NOTE | 2020-10-09 12:07 | MR ---
EXAMINATION TYPE: MR brain wo/w con DATE OF EXAM: 10/09/2020 COMPARISON: Prior MRI brain July 09, 2020 and older studies. HISTORY: Secondary malignant neoplasm of brain, small cell lung cancer. TECHNIQUE: Multiplanar, multisequence images of the brain and brainstem is performed without and with IV contras t, utilizing 7 mL intravenous Gadavist . FINDINGS: Diffusion weighted images demonstrate no evidence of a recent infarct or other diffusion ab normality. There is mild ventricular and sulcal prominence. Right parietal craniotomy change with ar tifact and small area of adjacent encephalomalacia inferiorly is redemonstrated. Midline structures redemonstrate normal morphology. The craniocervical junction appears within hortensia l limits. The dural venous sinuses appear patent. The visualized sinuses are clear and the globes are intact. Nasal septum remains deviated to left of midline. Stable slightly eccentric or slightly thickened dural enhancement possible small meningioma left fron lynnette region axial image 56. Interval progression in size of the known left cerebellar metastatic lesio n now measuring 6 mm craniocaudal dimension x 9 x 8 mm on sagittal image 27 series 602 and axial imag e 20 series 601. No new enhancing lesions clearly evident. IMPRESSION: Interval enlargement of the known left cerebellar metastatic focus. No new metastatic dis ease clearly seen.
== END | disposition home or self-care (01) ==
LOC: RADMRIMAIN 10:50
PROVIDERS: ATTEND Radiology Radiation Oncology
DX: C80.1 Malignant (primary) neoplasm, unspecified (principal); C79.31 Secondary malignant neoplasm of brain; Z92.21 Personal history of antineoplastic chemotherapy; C77.9 Secondary and unspecified malignant neoplasm of lymph node, unspecified; C34.11 Malignant neoplasm of upper lobe, right bronchus or lung; Z92.3 Personal history of irradiation; Z79.51 Long term (current) use of inhaled steroids
CPT/HCPCS: 70553; A9585

== ENCOUNTER 2020-10-23 07:48 | Inpatient (IN) | payer MEDICARE ==
[2020-10-23] MEDS ORDERED: ONDANSETRON 4 MG/2 ML VIAL IVP STA ×2 (08:03→12:13)
[2020-10-23] MEDS ORDERED: HYDROmorphone 1 MG/ML 1 ML SYRINGE IVP STA (08:06)
[2020-10-23 08:39] LABS: Prothrombin Time 10.4 sec (9.0-12.0)
[2020-10-23 08:45] LABS: Partial Thromboplastin Time 21.8 sec (22.0-30.0)
[2020-10-23 08:46] LABS: Anisocytosis Slight; HCT 20.9 % (39.0-53.0); Hypochromasia Slight; MCH 34.3 pg (25.0-35.0); MCHC 33.2 g/dL (31.0-37.0); MCV 103.3 fL (80.0-100.0); Macrocytosis Moderate; Mean Platelet Volume 9.7; Poikilocytosis Slight; RBC 2.02 m/uL (4.30-5.90); RDW 19.2 % (11.5-15.5)
--- NOTE | 2020-10-23 08:48 | XR ---
EXAMINATION TYPE: XR chest 2V DATE OF EXAM: 10/23/2020 COMPARISON: 01/11/2014 HISTORY: Shortness of breath TECHNIQUE: Frontal and lateral views of the chest are obtained. FINDINGS: Scattered senescent parenchymal changes noted. Hyperinflation compatible with COPD. Patchy infiltrate left lower lobe may reflect developing pneumonia. Correlate clinically and progress studies are recommended. Heart size is stable. Mediastinal structures are stable and grossly unremarkable. No evidence for hilar prominence. Degenerative changes dorsal spine. IMPRESSION: 1. Patchy infiltrate left lower lobe may reflect developing pneumonia. Correlate clinically and progr ess studies are recommended.
[2020-10-23 08:57] LABS: HGB 6.9 gm/dL (13.0-17.5); WBC 0.1 k/uL (3.8-10.6)
[2020-10-23 09:50] LABS: Platelet Count 20 k/uL (150-450)
[2020-10-23 09:51] LABS: Albumin 2.9 g/dL (3.5-5.0); Calcium 7.9 mg/dL (8.4-10.2); Magnesium 1.5 mg/dL (1.6-2.3); Total Bilirubin 1.1 mg/dL (0.2-1.3); Total Protein 5.3 g/dL (6.3-8.2)
--- NOTE | 2020-10-23 11:29 | ED ---
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 He presents to the emergency department for nausea, vomiting and weakness. Patient was recently seen in our emergency department for shortness of breath and was discharged AGAINST MEDICAL ADVICE. 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 They placed him on Lasix for which he has been taking however he continues to have lower extremity swelling. Reports that he has been evaluated for DVT and it was negative. The patient is actively on chemotherapy with Dr. Patrick as his oncologist. His last chemo session was Tuesday. Reports that since the treatment he has had nausea, vomiting and inability to keep down any food or water. He has not taken any medications at home for his vomiting. Denies hematemesis. He continues to have the shortness of breath with lower extremity swelling. No chest pain. Denies any fevers or chills. No abdominal pain. No changes in his bowel or bladder habits. No other alleviating, precipitating or modifying factors - Related Data Home Medications Medication Instructions Recorded Confirmed Clopidogrel [Plavix] 75 mg PO DAILY 01/11/14 10/24/20 lisinopriL [Zestril] 10 mg PO DAILY 01/11/14 10/24/20 Atorvastatin [Lipitor] 40 mg PO DAILY 07/06/19 10/24/20 Fish Oil/Dha/Epa [Fish Oil 1,200 1 cap PO DAILY 07/06/19 10/24/20 mg Fish Oil] Metoprolol Tartrate [Lopressor] 50 mg PO BID 07/06/19 10/24/20 metFORMIN HCL [Glucophage] 1,000 mg PO BID 07/06/19 10/24/20 LORazepam [Ativan] 1 mg PO Q6H PRN 09/14/19 10/24/20 Zolpidem Tartrate [Ambien] 10 mg PO HS 09/14/19 10/24/20 Gabapentin 300 mg PO TID 02/05/20 10/24/20 Albuterol Inhaler [Ventolin Hfa 2 puff INHALATION RT-Q6H PRN 10/08/20 10/24/20 Inhaler] Aspirin EC [Ecotrin] 325 mg PO DAILY 10/23/20 10/24/20 Furosemide [Lasix] 40 mg PO DAILY 10/23/20 10/24/20 Morphine Sulfate ER [Ms Contin] 15 mg PO Q8H 10/23/20 10/24/20 Potassium Chloride ER [K-Dur 10] 10 meq PO DAILY 10/23/20 10/24/20 Allergies Allergy/AdvReac Type Severity Reaction Status Date / Time No Known Allergies Allergy Verified 10/23/20 12:14 Review of Systems ROS Statement: Those systems with pertinent positive or pertinent negative responses have been documented in the HPI. ROS Other: All systems not noted in ROS Statement are negative. Past Medical History Past Medical History: Coronary Artery Disease (CAD), Cancer, Chest Pain / Angina, Diabetes Mellitus, Hyperlipidemia, Hypertension, Myocardial Infarction ([place]) Additional Past Medical History / Comment(s): Small cell lung cancer/mediastinal mass with SVC compression-treated with chemotherapy in July 2019 and radiation just completed about 3 weeks ago-pt states he is to restart chemo in one week, NIDDM type II, arthritis in bilateral hands Last Myocardial Infarction Date:: 2013 History of Any Multi-Drug Resistant Organisms: None Reported Past Surgical History: Back Surgery, Heart Catheterization With Stent, Joint Replacement, Tonsillectomy Additional Past Surgical History / Comment(s): Spinal fusion in 1970s, lumbar epidural injections, R shoulder rotator cuff repair, R total knee arthroplasty, skull plate d/t injury, PCIs with stents, colonoscopy, 07/09/19 bronch with bi opsy. PET scan Past Anesthesia/Blood Transfusion Reactions: No Reported Reaction Date of Last Stent Placement:: 2013 Past Psychological History: Anxiety Smoking Status: Current every day smoker Past Alcohol Use History: None Reported Past Drug Use History: None Reported - Past Family History Father Family Medical History: Cancer Additional Family Medical History / Comment(s): AT 84. MULTIPLE MYELOMA. Mother Family Medical History: Dementia Additional Family Medical History / Comment(s): AT AGE 85 Brother(s) Family Medical History: Cancer Additional Family Medical History / Comment(s): LEUKEMIA. General Exam Limitations: no limitations General appearance: alert, in no apparent distress Head exam: Present: atraumatic, normocephalic Eye exam: Present: normal appearance, PERRL, EOMI. Absent: scleral icterus, conjunctival injection, periorbital swelling ENT exam: Present: normal exam, mucous membranes moist Respiratory exam: Present: rales, other (mild tachypnia). Absent: respiratory distress Cardiovascular Exam: Present: normal rhythm, tachycardia Extremities exam: Present: pedal edema Neurological exam: Present: alert Psychiatric exam: Present: other (agitated) Skin exam: Present: warm, dry Course Vital Signs 10/23/20 10/23/20 10/23/20 07:54 09:42 10:37 Temperature 99.3 F Pulse Rate 105 H 102 H 97 Respiratory 24 22 20 Rate Blood Pressure 118/68 112/62 117/69 O2 Sat by Pulse 99 98 94 L Oximetry 10/23/20 10/23/20 10/23/20 11:02 11:12 11:42 Temperature 97.9 F 97.9 F 97.8 F Pulse Rate 101 H 98 96 Respiratory 20 20 18 Rate Blood Pressure 133/70 132/72 106/64 O2 Sat by Pulse 91 L 94 L Oximetry 10/23/20 10/23/20 10/23/20 12:14 13:51 14:01 Temperature 98.6 F 98.6 F Pulse Rate 96 104 H 104 H Respiratory 18 20 20 Rate Blood Pressure 92/64 117/64 131/73 O2 Sat by Pulse 97 93 L 92 L Oximetry 10/23/20 10/23/20 15:00 15:30 Temperature 101.2 F H Pulse Rate 105 H Respiratory 20 Rate Blood Pressure 126/60 O2 Sat by Pulse 91 L 93 L Oximetry Medical Decision Making - Medical Decision Making Upon arrival the patient was placed into room 5. A thorough history and physical exam was performed. The patient is given something for pain control and nausea. The patient does have extensive lower extremity swelling and therefore I hold off on fluid. Laboratory studies are conducted. White count 7.1. Hemoglobin 6.9. Platelets 20. I did recommend transfusion of 1 unit which the patient did agree to. Additional laboratory studies demonstrate a potassium of 3, creatinine 1.3, glucose 365, mag 1.5. Potassium and magnesium is replaced. BNP elevated at 4490. Chest x-rays performed which demonstrates patchy infiltrate left lower lobe. Results are discussed with patient. Patient is originally adamant that he is going home. I do discuss the risks of leaving with the patient's and the benefits of remaining hospitalized. Patient does consider these and agrees to stay in the hospital overnight but is adamant he needs to go home tomorrow. The patient was transfused 1 unit and received 40 mg of IV Lasix due to his identifiable overload. I spoke with Dr. porter who agreed to admit the patient. I placed cardiology and oncology on consult. Patient remains in stable condition with a guarded prognosis for a bed - Lab Data Result diagrams: 10/24/20 08:00 10/24/20 08:00 Lab Results 10/23/20 10/23/20 10/23/20 Range/Units 08:08 08:08 08:08 WBC 0.1 L* (3.8-10.6) k/uL RBC 2.02 L (4.30-5.90) m/uL Hgb 6.9 L* D (13.0-17.5) gm/dL Hct 20.9 L (39.0-53.0) % MCV 103.3 H (80.0-100.0) fL MCH 34.3 (25.0-35.0) pg MCHC 33.2 (31.0-37.0) g/dL RDW 19.2 H (11.5-15.5) % Plt Count 20 L D (150-450) k/uL MPV 9.7 Neutrophils # MANAGER OF REVENUE Manual Slide Review Performed Hypochromasia Slight Poikilocytosis Slight Anisocytosis Slight Macrocytosis Moderate PT 10.4 (9.0-12.0) sec INR 1.0 (<1.2) APTT 21.8 L (22.0-30.0) sec Sodium 140 (137-145) mmol/L Potassium 3.0 L (3.5-5.1) mmol/L Chloride 98 (98-107) mmol/L Carbon Dioxide 32 H (22-30) mmol/L Anion Gap 10 mmol/L BUN 57 H (9-20) mg/dL Creatinine 1.32 H (0.66-1.25) mg/dL Est GFR (CKD-EPI)AfAm 64 (>60 ml/min/1.73 sqM) Est GFR (CKD-EPI)NonAf 55 (>60 ml/min/1.73 sqM) Glucose 365 H (74-99) mg/dL Lactic Ac Sepsis Rflx Plasma Lactic Acid Catrachito (0.7-2.0) mmol/L Calcium 7.9 L (8.4-10.2) mg/dL Magnesium 1.5 L (1.6-2.3) mg/dL Iron (65-175) ug/dL TIBC (228-460) ug/dL % Saturation (15.00-50.00) Ferritin (22.0-322.0) ng/mL Total Bilirubin 1.1 (0.2-1.3) mg/dL AST 18 (17-59) U/L ALT 13 (4-49) U/L Alkaline Phosphatase 99 (38-126) U/L Lactate Dehydrogenase (313-618) U/L Creatine Kinase 83 (55-170) U/L Troponin I (0.000-0.034) ng/mL NT-Pro-B Natriuret Pep pg/mL Total Protein 5.3 L (6.3-8.2) g/dL Albumin 2.9 L (3.5-5.0) g/dL Vitamin B12 (200.0-944.0) pg/mL Blood Type Blood Type Recheck Bld Type Recheck Status Antibody Screen Crossmatch Spec Expiration Date 10/23/20 10/23/20 10/23/20 Range/Units 08:08 08:08 08:08 WBC (3.8-10.6) k/uL RBC (4.30-5.90) m/uL Hgb (13.0-17.5) gm/dL Hct (39.0-53.0) % MCV (80.0-100.0) fL MCH (25.0-35.0) pg MCHC (31.0-37.0) g/dL RDW (11.5-15.5) % Plt Count (150-450) k/uL MPV Neutrophils # Manual Slide Review Hypochromasia Poikilocytosis Anisocytosis Macrocytosis PT (9.0-12.0) sec INR (<1.2) APTT (22.0-30.0) sec Sodium (137-145) mmol/L Potassium (3.5-5.1) mmol/L Chloride (98-107) mmol/L Carbon Dioxide (22-30) mmol/L Anion Gap mmol/L BUN (9-20) mg/dL Creatinine (0.66-1.25) mg/dL Est GFR (CKD-EPI)AfAm (>60 ml/min/1.73 sqM) Est GFR (CKD-EPI)NonAf (>60 ml/min/1.73 sqM) Glucose (74-99) mg/dL Lactic Ac Sepsis Rflx Plasma Lactic Acid Catrachito 2.8 H* (0.7-2.0) mmol/L Calcium (8.4-10.2) mg/dL Magnesium (1.6-2.3) mg/dL Iron (65-175) ug/dL TIBC (228-460) ug/dL % Saturation (15.00-50.00) Ferritin (22.0-322.0) ng/mL Total Bilirubin (0.2-1.3) mg/dL AST (17-59) U/L ALT (4-49) U/L Alkaline Phosphatase (38-126) U/L Lactate Dehydrogenase (313-618) U/L Creatine Kinase (55-170) U/L Troponin I 0.028 (0.000-0.034) ng/mL NT-Pro-B Natriuret Pep 4490 pg/mL Total Protein (6.3-8.2) g/dL Albumin (3.5-5.0) g/dL Vitamin B12 (200.0-944.0) pg/mL Blood Type Blood Type Recheck Bld Type Recheck Status Antibody Screen Crossmatch Spec Expiration Date 10/23/20 10/23/20 10/23/20 Range/Units 08:08 08:08 09:30 WBC (3.8-10.6) k/uL RBC (4.30-5.90) m/uL Hgb (13.0-17.5) gm/dL Hct (39.0-53.0) % MCV (80.0-100.0) fL MCH (25.0-35.0) pg MCHC (31.0-37.0) g/dL RDW (11.5-15.5) % Plt Count (150-450) k/uL MPV Neutrophils # Manual Slide Review Hypochromasia Poikilocytosis Anisocytosis Macrocytosis PT (9.0-12.0) sec INR (<1.2) APTT (22.0-30.0) sec Sodium (137-145) mmol/L Potassium (3.5-5.1) mmol/L Chloride (98-107) mmol/L Carbon Dioxide (22-30) mmol/L Anion Gap mmol/L BUN (9-20) mg/dL Creatinine (0.66-1.25) mg/dL Est GFR (CKD-EPI)AfAm (>60 ml/min/1.73 sqM) Est GFR (CKD-EPI)NonAf (>60 ml/min/1.73 sqM) Glucose (74-99) mg/dL Lactic Ac Sepsis Rflx Plasma Lactic Acid Catrachito (0.7-2.0) mmol/L Calcium (8.4-10.2) mg/dL Magnesium (1.6-2.3) mg/dL Iron 70 (65-175) ug/dL TIBC 183 L (228-460) ug/dL % Saturation 38.25 (15.00-50.00) Ferritin 4926.7 H (22.0-322.0) ng/mL Total Bilirubin (0.2-1.3) mg/dL AST (17-59) U/L ALT (4-49) U/L Alkaline Phosphatase (38-126) U/L Lactate Dehydrogenase 878 H (313-618) U/L Creatine Kinase (55-170) U/L Troponin I (0.000-0.034) ng/mL NT-Pro-B Natriuret Pep pg/mL Total Protein (6.3-8.2) g/dL Albumin (3.5-5.0) g/dL Vitamin B12 2139.0 H (200.0-944.0) pg/mL Blood Type O Positive Blood Type Recheck O Pos Bld Type Recheck Status No Antibody Screen NEGATIVE Crossmatch See Detail Spec Expiration Date 10/26/2020 - 232910/23/20 Range/Units 09:58 WBC (3.8-10.6) k/uL RBC (4.30-5.90) m/uL Hgb (13.0-17.5) gm/dL Hct (39.0-53.0) % MCV (80.0-100.0) fL MCH (25.0-35.0) pg MCHC (31.0-37.0) g/dL RDW (11.5-15.5) % Plt Count (150-450) k/uL MPV Neutrophils # Manual Slide Review Hypochromasia Poikilocytosis Anisocytosis Macrocytosis PT (9.0-12.0) sec INR (<1.2) APTT (22.0-30.0) sec Sodium (137-145) mmol/L Potassium (3.5-5.1) mmol/L Chloride (98-107) mmol/L Carbon Dioxide (22-30) mmol/L Anion Gap mmol/L BUN (9-20) mg/dL Creatinine (0.66-1.25) mg/dL Est GFR (CKD-EPI)AfAm (>60 ml/min/1.73 sqM) Est GFR (CKD-EPI)NonAf (>60 ml/min/1.73 sqM) Glucose (74-99) mg/dL Lactic Ac Sepsis Rflx Y Plasma Lactic Acid Catrachito (0.7-2.0) mmol/L Calcium (8.4-10.2) mg/dL Magnesium (1.6-2.3) mg/dL Iron (65-175) ug/dL TIBC (228-460) ug/dL % Saturation (15.00-50.00) Ferritin (22.0-322.0) ng/mL Total Bilirubin (0.2-1.3) mg/dL AST (17-59) U/L ALT (4-49) U/L Alkaline Phosphatase (38-126) U/L Lactate Dehydrogenase (313-618) U/L Creatine Kinase (55-170) U/L Troponin I (0.000-0.034) ng/mL NT-Pro-B Natriuret Pep pg/mL Total Protein (6.3-8.2) g/dL Albumin (3.5-5.0) g/dL Vitamin B12 (200.0-944.0) pg/mL Blood Type Blood Type Recheck Bld Type Recheck Status Antibody Screen Crossmatch Spec Expiration Date - EKG Data EKG Comments: EKG demonstrates sinus tachycardia with a ventricular rate of 108. MA interval 178. 94. QTC of 436. ST depression of V2 through V6 Critical Care Time Critical Care Time: Yes Critical Care Time: 32 minutes for transfusion of blood products Disposition Clinical Impression: Hypokalemia, Hyperglycemia, Hypomagnesemia, Mediastinal mass, Elevated brain natriuretic peptide (BNP) level, Neutropenia, Metastatic lung cancer (metastasis from lung to other site) Disposition: ADMITTED IP TO THIS HOSP Condition: Serious Is patient prescribed a controlled substance at d/c from ED?: No Time of Disposition: 11:53 Decision to Admit Reason: Admit from EC Decision Date: 10/23/20
[2020-10-23] MEDS ORDERED: NALOXONE 0.4 MG/ML 1 ML VIAL IV PRN (11:56)
[2020-10-23] MEDS ORDERED: FUROSEMIDE 10 MG/ML 4 ML VIAL IV STA (11:59)
[2020-10-23] MEDS ORDERED: POTASSIUM CHLORIDE ER 20 MEQ TAB.ER PO STA (12:14)
[2020-10-23] MEDS ORDERED: POTASSIUM CHLORIDE 20 MEQ in WATER FOR INJECTION 1 100ML.BAG IVPB STA (12:14)
[2020-10-23] MEDS ORDERED: MAGNESIUM SULFATE-D5W PMX 1 GM in DEXTROSE/WATER 1 100ML.BAG IVPB ONE (12:15)
[2020-10-23] MEDS ORDERED: ACETAMINOPHEN TAB 325 MG TAB PO PRN (15:15)
[2020-10-23] MEDS ORDERED: TEMAZEPAM 15 MG CAP PO PRN (15:30)
[2020-10-23] MEDS ORDERED: LORazepam 0.5 MG TAB PO PRN (15:30)
[2020-10-23] MEDS ORDERED: MAG HYDROX/AL HYDROX/SIMETH 30 ML CUP PO PRN (15:30)
[2020-10-23] MEDS ORDERED: CALCIUM CARBONATE 500 MG CHEWABLE PO PRN (15:30)
--- NOTE | 2020-10-23 15:51 | P.HPIM ---
History of Present Illness H&P Date: 10/23/20 Chief Complaint: Weak and tired History of presenting complaint: This is a very pleasant 70-year-old patient of Dr. Celia Duarte. Chronic stable medical conditions include coronary artery disease with stent, diabetes, hypertension, hyperlipidemia. Patient diagnosed with small cell lung cancer with SVC compression treated with chemotherapy and radiation treatment diagnosis of July 2019. radiation [address] Dr. Stuart Abreu. Patient getting chemotherapy - last time she was about a week ago. Patient presents with overall decline. Decreased sleep. Increase oral intake. Weak diet. Weight loss. Using a walker. Lower extremity swelling. Just going downhill. Tired rundown. Relevant finding it difficult to speak and give a history. Keeps nodding off. Noted to have a fever to 101.2 in the ER. Denies any obvious urinary or pulmonary symptoms. 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 Patient has done drugs including cocaine and LSD, he quit them 20 years ago Family history: Multiple myeloma. Cancer Physical examination: VITAL SIGNS: 101.2, 105, 20, 1 26 x 60, 91% on 4 L GENERAL: BMI 21.9, cachectic, lethargic, arousable EYES: Pupils equal. Conjunctiva pale. HEENT: External appearance of nose and ears normal, oral cavity grossly hortensia, decreased scalp hair l. NECK: JVD not raised; masses not palpable. HEART: First and second heart sounds are normal; edema present LUNGS: Respiratory rate increased, decreased breath sounds. ABDOMEN: Soft, nontender, liver spleen not palpable, no masses palpable. PSYCH: Tired lethargic, able to answer some questions. MUSCULOSKELETAL-evidence of arthritis in the hand . Loss of muscle mass NEUROLOGICAL: Cranial nerves grossly intact; no facial asymmetry, generalized decrease in power, sensation grossly preserved LYMPHATICS: No lymph nodes palpable in the axilla and neck INVESTIGATIONS, reviewed in the clinical context: WBC 0.1 hemoglobin 6.9 platelets 20 potassium 3 BUN 57 creatinine 1.3 to glucose 365 Lactic acid 2.8, repeat 1.9 magnesium 1.5 albumin 2.9 proBNP 4490 EKG tracing personally reviewed by me-sinus rhythm, ST segment depression in anterior leads, Chest x-ray film personally reviewed by me-possible left lower lobe infiltrate Assessment and plan: -Left lower lobe pneumonia, in immunosuppressed patient Start cefepime 2 g every 12. Blood culture -Coronary artery disease with stent Aspirin 81 mg, Plavix 75 mg, Lopressor 25 mg twice a day -Chronic insomnia from medical condition Ambien 5 mg daily at bedtime -Acute kidney injury likely prerenal Creatinine was 0.9 on October 08. Now 1.3 . IV fluids -Severe hypokalemia Replace - hypomagnesemia Magnesium supplement -Diabetes mellitus type 2, on oral hypoglycemic Follow Accu-Cheks. -Hyperlipidemia Lipitor 40 mg daily -Essential hypertension Blood pressure in the lower side. Hold off MIROSLAVA inhibitor. Lopressor 25 mg twice a day -Small cell lung cancer with SVC compression treated with chemotherapy and radiation Consult oncology -Primary osteoarthritis Pain medications as needed -Chronic gait dysfunction and medical debility from underlying malignancy Walker, fall precautions -COPD in a smoker DuoNeb -Pancytopenia from chemotherapy Consultants hematology -Moderate protein calorie malnutrition, from decreased oral intake Nutritional supplements -Lower extremity DVT edema combination of anemia and severe hypoalbuminemia WAYNE stockings -Full code Start patient IV cefepime. IV fluids. Hold off MIROSLAVA inhibitor. Lopressor 25 mg twice daily. Follow labs. Blood cultures. Consult oncology, Advanced care planning: End-of-life care was discussed with the patient. Given his advanced cancer multiple comorbidities and failing functional status. Patient wishes to remain full code at this time but will discuss this with his . He understand his prognosis is guarded and his health is failing. Been addressed this again with the patient. Additional 20 minutes was spent for this Past Medical History Past Medical History: Coronary Artery Disease (CAD), Cancer, Chest Pain / Angina, Diabetes Mellitus, Hyperlipidemia, Hypertension, Myocardial Infarction ([place]) Additional Past Medical History / Comment(s): Small cell lung cancer/mediastinal mass with SVC compression-treated with chemotherapy in July 2019 and radiation just completed about 3 weeks ago-pt states he is to restart chemo in one week, NIDDM type II, 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 PET scan Past Anesthesia/Blood Transfusion Reactions: No Reported Reaction Date of Last Stent Placement:: 2013 Past Psychological History: Anxiety Smoking Status: Current every day smoker Past Alcohol Use History: None Reported Past Drug Use History: None Reported - Past Family History Father Family Medical History: Cancer Additional Family Medical History / Comment(s): AT 84. MULTIPLE MYELOMA. Mother Family Medical History: Dementia Additional Family Medical History / Comment(s): AT AGE 85 Brother(s) Family Medical History: Cancer Additional Family Medical History / Comment(s): LEUKEMIA. Medications and Allergies Home Medications Medication Instructions Recorded Confirmed Type Clopidogrel [Plavix] 75 mg PO DAILY 01/11/14 10/23/20 History lisinopriL [Zestril] 10 mg PO DAILY 01/11/14 10/23/20 History Atorvastatin [Lipitor] 40 mg PO DAILY 07/06/19 10/23/20 History Fish Oil/Dha/Epa [Fish Oil 1,200 1 cap PO DAILY 07/06/19 10/23/20 History mg Fish Oil] Metoprolol Tartrate [Lopressor] 50 mg PO BID 07/06/19 10/23/20 History metFORMIN HCL [Glucophage] 1,000 mg PO BID 07/06/19 10/23/20 History LORazepam [Ativan] 1 mg PO Q6H PRN 09/14/19 10/23/20 History Zolpidem Tartrate [Ambien] 10 mg PO HS 09/14/19 10/23/20 History Gabapentin 300 mg PO TID 02/05/20 10/23/20 History Albuterol Inhaler [Ventolin Hfa 2 puff INHALATION RT-Q6H PRN 10/08/20 10/23/20 History Inhaler] Aspirin EC [Ecotrin] 325 mg PO DAILY 10/23/20 10/23/20 History Furosemide [Lasix] 40 mg PO DAILY 10/23/20 10/23/20 History Morphine Sulfate ER [Ms Contin] 15 mg PO Q8H 10/23/20 10/23/20 History Potassium Chloride ER [K-Dur 10] 10 meq PO DAILY 10/23/20 10/23/20 History Allergies Allergy/AdvReac Type Severity Reaction Status Date / Time No Known Allergies Allergy Verified 10/23/20 12:14 Physical Exam Vitals: Vital Signs Temp Pulse Resp BP Pulse Ox 10/23/20 15:00 101.2 F H 105 H 20 126/60 91 L 10/23/20 14:01 98.6 F 104 H 20 131/73 92 L 10/23/20 13:51 98.6 F 104 H 20 117/64 93 L 10/23/20 12:14 96 18 92/64 97 10/23/20 11:42 97.8 F 96 18 106/64 10/23/20 11:12 97.9 F 98 20 132/72 94 L 10/23/20 11:02 97.9 F 101 H 20 133/70 91 L 10/23/20 10:37 97 20 117/69 94 L 10/23/20 09:42 102 H 22 112/62 98 10/23/20 07:54 99.3 F 105 H 24 118/68 99 Intake and Output 10/23/20 10/23/20 10/23/20 06:59 14:59 22:59 Intake Total 310 Balance 310 Intake: Blood Product 310 Rc As-1 Unit 310 [id number] Other: Weight 79.3 kg Results CBC & Chem 7: 10/23/20 08:08 10/23/20 08:08 Labs: Abnormal Lab Results - Last 24 Hours (Table) 10/23/20 10/23/20 10/23/20 Range/Units 08:08 08:08 08:08 WBC 0.1 L* (3.8-10.6) k/uL RBC 2.02 L (4.30-5.90) m/uL Hgb 6.9 L* D (13.0-17.5) gm/dL Hct 20.9 L (39.0-53.0) % MCV 103.3 H (80.0-100.0) fL RDW 19.2 H (11.5-15.5) % Plt Count 20 L D (150-450) k/uL APTT 21.8 L (22.0-30.0) sec Potassium 3.0 L (3.5-5.1) mmol/L Carbon Dioxide 32 H (22-30) mmol/L BUN 57 H (9-20) mg/dL Creatinine 1.32 H (0.66-1.25) mg/dL Glucose 365 H (74-99) mg/dL Plasma Lactic Acid Catrachito (0.7-2.0) mmol/L Calcium 7.9 L (8.4-10.2) mg/dL Magnesium 1.5 L (1.6-2.3) mg/dL Total Protein 5.3 L (6.3-8.2) g/dL Albumin 2.9 L (3.5-5.0) g/dL Crossmatch 10/23/20 10/23/20 Range/Units 08:08 09:30 WBC (3.8-10.6) k/uL RBC (4.30-5.90) m/uL Hgb (13.0-17.5) gm/dL Hct (39.0-53.0) % MCV (80.0-100.0) fL RDW (11.5-15.5) % Plt Count (150-450) k/uL APTT (22.0-30.0) sec Potassium (3.5-5.1) mmol/L Carbon Dioxide (22-30) mmol/L BUN (9-20) mg/dL Creatinine (0.66-1.25) mg/dL Glucose (74-99) mg/dL Plasma Lactic Acid Catrachito 2.8 H* (0.7-2.0) mmol/L Calcium (8.4-10.2) mg/dL Magnesium (1.6-2.3) mg/dL Total Protein (6.3-8.2) g/dL Albumin (3.5-5.0) g/dL Crossmatch See Detail
[2020-10-23] MEDS: CEFEPIME 2 GM in SODIUM CHLORIDE 0.9% 100 ML IVPB SCH (16:00)
[2020-10-23] MEDS: SODIUM CHLORIDE 0.9% 1,000 ML IV SCH ×2 (16:30→20:36)
[2020-10-23 16:45] LABS: Glucose,Whole Blood 410 mg/dL (75-99)
[2020-10-23] MEDS ORDERED: DILTIAZEM DRIP BOLUS FROM BAG 1 MG SOLN IV STA (17:16)
[2020-10-23] MEDS ORDERED: ONDANSETRON 4 MG/2 ML VIAL IVP PRN (17:18)
[2020-10-23] MEDS: DILTIAZEM 125 MG in SODIUM CHLORIDE 0.9% 100 ML IV SCH (17:30)
[2020-10-23] MEDS ORDERED: INSULIN ASPART (NovoLOG) 100 UNIT/ML VIAL SQ SCH (17:30)
[2020-10-23] MEDS ORDERED: INSULIN REGULAR 100 UNIT in SODIUM CHLORIDE 0.9% 100 ML IV SCH (18:00)
[2020-10-23] MEDS: HYDROmorphone 1 MG/ML 1 ML SYRINGE IVP PRN (18:11)
[2020-10-23 19:29] LABS: Glucose,Whole Blood 352 mg/dL (75-99)
[2020-10-23] MEDS ORDERED: AMIODARONE 360 MG in DEXTROSE 5% IN WATER 200 ML IV ONE ×2 (19:32)
[2020-10-23] MEDS ORDERED: DEXTROSE 5% IN WATER 100 ML with AMIODARONE 150 MG IV ONE (19:32)
[2020-10-23] MEDS ORDERED: AZITHROMYCIN 500 MG in SODIUM CHLORIDE 0.9% 250 ML IVPB SCH (20:00)
[2020-10-23 20:01] LABS: Glucose,Whole Blood 324 mg/dL (75-99)
[2020-10-23 20:32] LABS: Calcium 6.8 mg/dL (8.4-10.2)
[2020-10-23 20:38] LABS: Potassium 2.6 mmol/L (3.5-5.1)
[2020-10-23] MEDS: METOPROLOL TARTRATE 25 MG TAB PO SCH (20:41)
[2020-10-23] MEDS ORDERED: Potassium Replacement Protocol 1 EACH MISC MISCELLANE PRN (20:45)
[2020-10-23] MEDS: MAGNESIUM OXIDE 400 MG TAB PO SCH (20:47)
[2020-10-23 20:52] LABS: Anisocytosis Slight; MCHC 33.1 g/dL (31.0-37.0); MCV 105.6 fL (80.0-100.0); Macrocytosis Marked; Mean Platelet Volume 10.2; RBC 1.79 m/uL (4.30-5.90)
[2020-10-23] MEDS: POTASSIUM CHLORIDE ER 20 MEQ TAB.ER PO SCH ×2 (20:54→22:54)
[2020-10-23 20:57] LABS: HCT 18.9 % (39.0-53.0); HGB 6.3 gm/dL (13.0-17.5); WBC 0.1 k/uL (3.8-10.6)
[2020-10-23 20:58] LABS: Platelet Count 7 k/uL (150-450)
--- NOTE | 2020-10-23 20:58 | P.EN ---
A team for hypotension 70 year old male with metastatic lung cancer. presented with generalized weakness, and SOB. found to have possible pneumonia. also found to be in afib with RVR and was started on cardizem drip A team called for hypotension , with systolic blood pressure in the 50s, patient looked confused and slower to respond, denies any chest pain on exam , heart rate in the 130-140s, SBP 50-60s lung good breath sounds bilaterally , rales at left lung base bilateral pitting leg edema +2 abd soft , no tenderness to palpation heart tachycardic assessment altered mental status due to hypotension Afib wtih RVR hypotension pneumonia pancytopenia plan IVF bolus with normal saline 1000 cc over 1 hour hold cardizem switch to amiodarone if remains in Afib with RVR, with 150 mg bolus then amiodarone drip per protocol blood thinners on hold due to severe thrombocytopenia electrolytes imbalance , replace then follow up levels at midnight compression stockings to lower extremities hold BP meds add azithromycin to cefepime for possible diagnosis of pneumonia follow up CBC , patient received 1 uPRBC continue with supportive care interval eval shows systolic blood pressure improved to 88 initiate amiodarone , due to persistent afib with RVR, DC cardizem due to hypotension initiate NS IVF 0.9% at 120 cc per hour for 10 hours , then reassess. patient mental status improving patient is spontaneously opening eyes and asking questions. Total amount of critical care time spent was 40 minutes not counting procedures performed.
[2020-10-23] MEDS ORDERED: ZOLPIDEM 5 MG TAB PO SCH (21:00)
[2020-10-23 21:57] LABS: Glucose,Whole Blood 141 mg/dL (75-99)
[2020-10-24] MEDS: POTASSIUM CHLORIDE 10 MEQ in WATER FOR INJECTION 1 100ML.BAG IVPB SCH ×6 (00:18→06:04)
[2020-10-24 00:19] LABS: Glucose,Whole Blood 70 mg/dL (75-99)
[2020-10-24] MEDS: POTASSIUM CHLORIDE ER 20 MEQ TAB.ER PO SCH (00:19)
[2020-10-24 00:57] LABS: Glucose,Whole Blood 80 mg/dL (75-99)
[2020-10-24] MEDS ORDERED: AMIODARONE 450 MG in DEXTROSE 5% IN WATER 250 ML IV SCH ×2 (01:31)
[2020-10-24 02:02] LABS: Glucose,Whole Blood 65 mg/dL (75-99)
[2020-10-24] MEDS ORDERED: DEXTROSE 50% SYRINGE 50 ML IVP STA (02:10)
[2020-10-24 02:21] LABS: % Iron Saturation 38.25 (15.00-50.00); Ferritin 4926.7 ng/mL (22.0-322.0)
[2020-10-24 02:50] LABS: Glucose,Whole Blood 151 mg/dL (75-99)
[2020-10-24 04:05] LABS: Glucose,Whole Blood 150 mg/dL (75-99)
[2020-10-24 04:28] LABS: ABG Base Excess 9.9 mmol/L; ABG HCO3 33 mmol/L (21-25); ABG Oxygen Saturation 88.4 % (94-97); ABG PCO2 41 mmHg (35-45); ABG PH 7.51 (7.35-7.45); ABG TCO2 34 mmol/L (19-24); Allen Test Performed? Yes
[2020-10-24] MEDS: CEFEPIME 2 GM in SODIUM CHLORIDE 0.9% 100 ML IVPB SCH (04:44)
[2020-10-24 05:10] LABS: ABG PO2 49 mmHg (83-108)
[2020-10-24] MEDS ORDERED: ATROPINE OPHTH SOLN 1% 5ML BTL SUBLINGUAL PRN (05:30)
[2020-10-24 06:02] LABS: Glucose,Whole Blood 153 mg/dL (75-99)
[2020-10-24] MEDS: SODIUM CHLORIDE 0.9% 1,000 ML IV SCH ×2 (06:02)
[2020-10-24] MEDS ORDERED: CLOPIDOGREL 75 MG TAB PO SCH (09:00)
[2020-10-24] MEDS ORDERED: ATORVASTATIN 40 MG TAB PO SCH (09:00)
[2020-10-24 09:10] LABS: Albumin 2.1 g/dL (3.5-5.0); Calcium 7.4 mg/dL (8.4-10.2); Magnesium 1.6 mg/dL (1.6-2.3); Potassium 4.7 mmol/L (3.5-5.1); Total Bilirubin 1.5 mg/dL (0.2-1.3); Total Protein 4.2 g/dL (6.3-8.2)
[2020-10-24 09:13] LABS: HCT 22.2 % (39.0-53.0); MCH 34.7 pg (25.0-35.0); MCHC 36.1 g/dL (31.0-37.0); RBC 2.32 m/uL (4.30-5.90); RDW 19.5 % (11.5-15.5)
[2020-10-24 09:14] LABS: Anisocytosis Slight; Macrocytosis Slight; Mean Platelet Volume 7.5; Poikilocytosis Slight
[2020-10-24 09:16] LABS: WBC 0.2 k/uL (3.8-10.6)
[2020-10-24 09:17] LABS: MCV 95.9 fL (80.0-100.0); Platelet Count 12 k/uL (150-450)
[2020-10-24 10:10] LABS: RBC Fragments Present
[2020-10-24 10:24] VITALS: TEMP 98.5
[2020-10-24 10:50] VITALS: RESP 25
[2020-10-24] MEDS: MAGNESIUM OXIDE 400 MG TAB PO SCH (10:50)
[2020-10-24] MEDS: METOPROLOL TARTRATE 25 MG TAB PO SCH (10:51)
--- NOTE | 2020-10-24 10:55 | P.CRDCN ---
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 He follows in the office with Dr. Antunez. We have been asked to see in consultation for heart failure. He presented to the hospital with symptoms of nausea vomiting and weakness. Last night he went into A. fib with RVR and had hypotension. He was placed on amiodarone infusion. Extensive conversation with the primary care team and the family regarding CODE STATUS. The patient continues to be a DO NOT RESUSCITATE. He is seen and examined sit ting up in bed quite obtunded. He is not answering questions appropriately. He continues to be in atrial fibrillation with variable ventricular rates from 9210. Amiodarone infusion ongoing. He is not currently taking oral medications. Chest x-ray reveals a patchy infiltrate of the left lower lobe. Laboratory data reviewed, WBC 0.2, hemoglobin 8 status post transfusion, platelets 12, pH 7.5, pCO2 41, pO2 49, sodium 140, potassium 4.7 up from 2.6 on admission, creatinine 1.9, cardiac enzymes negative 1, and T proBNP 4490, magnesium 1.5. Most recent echocardiogram obtained in the office 10/09/2020 reveals preserved LV systolic function with ejection fraction 45-50%, grade 2 diastolic dysfunction, moderately dilated left atrium, mild to moderate aortic regurgitation, moderate to severe mitral regurgitation, moderate to severe tricuspid regurgitation and pulmonary hypertension with an RVSP of 55 mmHg. REVIEW OF SYSTEMS At the time of my exam: Unable to obtain accurate review of systems secondary to altered mental status PHYSICAL EXAMINATION Blood pressure 137/74 heart rate 101 afebrile and maintaining oxygen saturation on nasal cannula. CONSTITUTIONAL: Obtunded. HEENT: Head is normocephalic. Pupils are equal, round. Sclerae anicteric. Mucous membranes of the mouth are moist. No JVD. No carotid bruit. CHEST EXAMINATION: Scattered rhonchi. No wheezes or rales. No chest wall tenderness is noted on palpation or with deep breathing. HEART EXAMINATION: Irregular rate and rhythm. S1, S2 heard. Systolic ejection murmur at the base, no gallops or rub. ABDOMEN: Soft, nontender. EXTREMITIES: 2+ peripheral pulses, bilateral lower extremity edema and no calf tenderness. ASSESSMENT New onset paroxysmal atrial fibrillation with rapid ventricular rate Hypoxic respiratory failure Pneumonia Generalized weakness Pancytopenia, severe Hypokalemia Hypomagnesemia Acute kidney injury Small cell lung cancer with metastasis to the mediastinum and brain Coronary artery disease status post PCI of the RCA Hypertension Dyslipidemia Diabetes mellitus Chronic nicotine dependence PLAN Continue amiodarone infusion for comfort care measures as he not alert enough to take oral pills at this time. If he becomes able recommend amiodarone 400mg BID. CHADS-VASC score 3, however given his current platelet count he is not a candidate for anti-coagulation. Replace electrolytes per protocol. Ongoing treatment per oncology, pulmonary and ID. No cardiac intervention at this time. We will follow along as needed, thank you kindly for this consultation. Nurse Practitioner note has been reviewed, I agree with a documented findings and plan of care. Patient was seen and examined. 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 PET scan Past Anesthesia/Blood Transfusion Reactions: No Reported Reaction Date of Last Stent Placement:: 2013 Past Psychological History: Anxiety Smoking Status: Current every day smoker Past Alcohol Use History: None Reported Past Drug Use History: None Reported - Past Family History Father Family Medical History: Cancer Additional Family Medical History / Comment(s): AT 84. MULTIPLE MYELOMA. Mother Family Medical History: Dementia Additional Family Medical History / Comment(s): AT AGE 85 Brother(s) Family Medical History: Cancer Additional Family Medical History / Comment(s): LEUKEMIA. Medications and Allergies Home Medications Medication Instructions Recorded Confirmed Type Clopidogrel [Plavix] 75 mg PO DAILY 01/11/14 10/23/20 History lisinopriL [Zestril] 10 mg PO DAILY 01/11/14 10/23/20 History Atorvastatin [Lipitor] 40 mg PO DAILY 07/06/19 10/23/20 History Fish Oil/Dha/Epa [Fish Oil 1,200 1 cap PO DAILY 07/06/19 10/23/20 History mg Fish Oil] Metoprolol Tartrate [Lopressor] 50 mg PO BID 07/06/19 10/23/20 History metFORMIN HCL [Glucophage] 1,000 mg PO BID 07/06/19 10/23/20 History LORazepam [Ativan] 1 mg PO Q6H PRN 09/14/19 10/23/20 History Zolpidem Tartrate [Ambien] 10 mg PO HS 09/14/19 10/23/20 History Gabapentin 300 mg PO TID 02/05/20 10/23/20 History Albuterol Inhaler [Ventolin Hfa 2 puff INHALATION RT-Q6H PRN 10/08/20 10/23/20 History Inhaler] Aspirin EC [Ecotrin] 325 mg PO DAILY 10/23/20 10/23/20 History Furosemide [Lasix] 40 mg PO DAILY 10/23/20 10/23/20 History Morphine Sulfate ER [Ms Contin] 15 mg PO Q8H 10/23/20 10/23/20 History Potassium Chloride ER [K-Dur 10] 10 meq PO DAILY 10/23/20 10/23/20 History Allergies Allergy/AdvReac Type Severity Reaction Status Date / Time No Known Allergies Allergy Verified 10/23/20 12:14 Physical Exam Vitals: Vital Signs Temp Pulse Pulse Resp BP BP Pulse Ox 10/24/20 08:35 98.5 F 103 H 20 117/75 93 L 10/24/20 06:54 109/71 10/24/20 06:49 94 99/65 10/24/20 06:09 99 20 94/61 10/24/20 04:52 81/52 10/24/20 04:09 93/60 10/24/20 04:00 104 H 20 86/60 08/20/21 03:25 126 H 20 84/53 10/24/20 02:54 82/60 10/24/20 02:16 120 H 22 72/46 90 L 10/24/20 02:00 126 H 20 10/24/20 01:46 116 H 22 80/44 80 L 10/24/20 01:36 98 F 109 H 20 83/48 80 L 10/24/20 00:00 126 H 20 85/49 90 L 10/23/20 20:00 98 F 122 H 20 92/54 98 10/23/20 16:00 98.3 F 154 H 18 98/51 93 L 10/23/20 15:30 93 L 10/23/20 15:00 101.2 F H 105 H 20 126/60 91 L 10/23/20 14:01 98.6 F 104 H 20 131/73 92 L 10/23/20 13:51 98.6 F 104 H 20 117/64 93 L 10/23/20 12:14 96 18 92/64 97 10/23/20 11:42 97.8 F 96 18 106/64 10/23/20 11:12 97.9 F 98 20 132/72 94 L 10/23/20 11:02 97.9 F 101 H 20 133/70 91 L Intake and Output 10/23/20 10/24/20 10/24/20 22:59 06:59 14:59 Intake Total 305.936 326.362 Balance 305.936 326.362 Intake: Intake, IV Titration 65.936 16.362 Amount Diltiazem 125 mg In 0 Sodium Chloride 0.9% 100 ml @ 5 MG/HR 5 mls/hr IV .Q24H [facility] Rx#:[id number] Insulin Regular 100 unit 65.936 16.362 In Sodium Chloride 0.9% 100 ml @ Titrate IV .Q0M [facility] Rx#:[id number] Oral 240 Blood Product 310 Rc Irr As1 Unit 310 [id number] Other: Voiding Method Urinal Diaper Diaper Diaper Incontinent Incontinent Incontinent # Voids 1 # Bowel Movements 1 1 Weight 72 kg Results 10/24/20 08:00 10/24/20 08:00 Cardiac Enzymes 10/23/20 10/24/20 Range/Units 08:08 08:00 AST 40 (17-59) U/L Lactate Dehydrogenase 878 H (313-618) U/L CBC 10/23/20 10/24/20 Range/Units Unknown 08:00 WBC 0.1 L* 0.2 L* (3.8-10.6) k/uL RBC 1.79 L 2.32 L (4.30-5.90) m/uL Hgb 6.3 L* 8.0 L D (13.0-17.5) gm/dL Hct 18.9 L* 22.2 L (39.0-53.0) % Plt Count 7 L* D 12 L* D (150-450) k/uL Comprehensive Metabolic Panel 10/23/20 10/24/20 Range/Units 19:15 08:00 Sodium 137 140 (137-145) mmol/L Potassium 2.6 L* 4.7 (3.5-5.1) mmol/L Chloride 100 103 (98-107) mmol/L Carbon Dioxide 29 29 (22-30) mmol/L BUN 60 H 73 H (9-20) mg/dL Creatinine 1.50 H 1.90 H (0.66-1.25) mg/dL Glucose 301 H 166 H (74-99) mg/dL Calcium 6.8 L 7.4 L (8.4-10.2) mg/dL AST 40 (17-59) U/L ALT 16 (4-49) U/L Alkaline Phosphatase 74 (38-126) U/L Total Protein 4.2 L (6.3-8.2) g/dL Albumin 2.1 L (3.5-5.0) g/dL Current Medications Generic Name Dose Route Start Last Admin Trade Name Freq PRN Reason Stop Dose Admin Acetaminophen 650 mg 10/23/20 15:15 10/23/20 15:18 Acetaminophen Tab 325 Mg Tab PO 650 mg Q6HR PRN Administration Fever and/ or Pain Al Hydroxide/Mg Hydroxide 15 ml 10/23/20 15:30 Mag Hydrox/Al Hydrox/Simeth 30 Ml Cup PO Q6HR PRN Indigestion Atorvastatin Calcium 40 mg 10/24/20 09:00 Atorvastatin 40 Mg Tab PO DAILY [facility]T Atropine Sulfate 2 drops 10/24/20 05:30 10/24/20 06:03 Atropine Ophth Soln 1% 5ml Btl SUBLINGUAL 2 drops QID PRN Administration Secretions Calcium Carbonate/Glycine 1,000 mg 10/23/20 15:30 Calcium Carbonate 500 Mg Chewable PO Q4HR PRN Dyspepsia Clopidogrel Bisulfate 75 mg 10/24/20 09:00 Clopidogrel 75 Mg Tab PO DAILY COLT Hydromorphone HCl 1 mg 10/23/20 11:56 10/23/20 18:11 Hydromorphone 1 Mg/Ml 1 Ml Syringe IVP 1 mg Q2HR PRN Administration Severe Pain Cefepime HCl 2 gm/ Sodium 100 mls @ 25 mls/hr 10/23/20 16:00 10/24/20 04:44 Chloride IVPB 25 mls/hr Q12H COLT Administration Sodium Chloride 1,000 mls @ 75 mls/hr 10/23/20 15:30 10/24/20 06:02 Saline 0.9% IV Not Given .[id number] COLT Insulin Human Regular 100 unit 101 mls @ 0 mls/hr 10/23/20 18:00 10/24/20 06:08 / Sodium Chloride IV 0 unit/hr .Q0M COLT 0 mls/hr Titration Protocol Titrate Amiodarone HCl 450 mg/ 250 mls @ 16.667 mls/hr 10/24/20 01:31 10/24/20 01:47 Dextrose/Water IV 10/24/20 19:30 0.5 mg/min .Q15H COLT 16.667 mls/hr Administration Protocol 0.5 MG/MIN Azithromycin 500 mg/ Sodium 250 mls @ 250 mls/hr 10/23/20 20:00 10/23/20 20:47 Chloride IVPB 250 mls/hr DAILY@2000 COLT Administration Sodium Chloride 1,000 mls @ 120 mls/hr 10/23/20 20:00 10/24/20 06:02 Saline 0.9% IV 10/25/20 07:00 Not Given .Q8H20M COLT Lorazepam 0.5 mg 10/23/20 15:30 10/23/20 17:47 Lorazepam 0.5 Mg Tab PO 0.5 mg Q6HR PRN Administration Anxiety Magnesium Oxide 400 mg 10/23/20 15:45 10/23/20 20:47 Magnesium Oxide 400 Mg Tab PO 400 mg DAILY COLT Administration Metoprolol Tartrate 25 mg 10/23/20 21:00 10/23/20 20:41 Metoprolol Tartrate 25 Mg Tab PO Not Given BID [facility] Miscellaneous Information 1 each 10/23/20 20:45 Potassium Replacement Protocol 1 Each Misc MISCELLANE DAILY PRN Per Protocol Protocol Naloxone HCl 0.2 mg 10/23/20 11:56 Naloxone 0.4 Mg/Ml 1 Ml Vial IV Q2M PRN Opioid Reversal Ondansetron HCl 4 mg 10/23/20 17:18 10/23/20 17:54 Ondansetron 4 Mg/2 Ml Vial IVP 4 mg Q6HR PRN Administration Nausea And Vomiting Temazepam 15 mg 10/23/20 15:30 Temazepam 15 Mg Cap PO HS PRN Insomnia Zolpidem Tartrate 5 mg 10/23/20 21:00 10/23/20 22:55 Zolpidem 5 Mg Tab PO Not Given HS COLT Intake and Output 10/23/20 10/24/20 10/24/20 22:59 06:59 14:59 Intake Total 305.936 326.362 Balance 305.936 326.362 Intake: Intake, IV Titration 65.936 16.362 Amount Diltiazem 125 mg In 0 Sodium Chloride 0.9% 100 ml @ 5 MG/HR 5 mls/hr IV .Q24H [facility] Rx#:[id number] Insulin Regular 100 unit 65.936 16.362 In Sodium Chloride 0.9% 100 ml @ Titrate IV .Q0M [facility] Rx#:[id number] Oral 240 Blood Product 310 Rc Irr As1 Unit 310 [id number] Other: Voiding Method Urinal Diaper Diaper Diaper Incontinent Incontinent Incontinent # Voids 1 # Bowel Movements 1 1 Weight 72 kg 10/24/20 08:00 10/24/20 08:00
[2020-10-24 11:35] VITALS: BP 146/76; PULSE 105
[2020-10-24] MEDS: HYDROmorphone 1 MG/ML 1 ML SYRINGE IVP PRN (11:39)
[2020-10-24 12:20] LABS: Glucose,Whole Blood 198 mg/dL (75-99)
[2020-10-24 13:21] VITALS: BMI 19.8
--- NOTE | 2020-10-24 13:32 | CDI ---
Documentation Clarification Form Date: 10/24/2020 01:19:33 PM From: Bettina Alexander CCS, CCDS Admit Date: 10/23/2020 11:59:00 AM Patient Name: Pawan Ryan Visit Number: [id number] Discharge Date: ATTENTION: The Clinical Documentation Specialists (CDI) and [facility] Coding Staff appreciate your assistance in clarifying documentation. Please respond to the clarification below the line at the bottom and electronically sign. The CDI & [facility] Coding staff will review the response and follow-up if needed. Please note: Queries are made part of the Legal Health Record. If you have any questions, please contact the author of this message via ITS. Dr. Ricardo Altamirano: Per the 10/24 Cardiology Consult, Hypoxic Respiratory Failure is documented without the acuity. Please clarify the Acuity of the patient's Hypoxic Respiratory Failure. History/Risk Factors per the 10/23 H/P: CAD status post PA w/coronary stent, IDDM II, Hypertension, Hyperlipidemia, Diagnosed with Small Cell Lung Cancer with SVC Compression with metastatic disease to the Mediastinum & Brain, treated with Chemotherapy & Radiation treatments. Current Smoker. Clinical Indicators: Presented to the ED on 10/23 via EMS with SOB, Nausea & Vomiting. ED Clinical Impression: Hypokalemia, Hyperglycemia, Hypomagnesemia, Mediastinal Mass, Elevated BNP, Neutropenia 10/23 VS: T 99.3, P 105, R 24 (SOB, Accessory use), BP 118/68, PO 99 15% nr - 98 4Lnc 10/23 BMI: 19.8 10/24 ABG: pH 7.51, pCO2 41, pO2 49, HCO3 33, Total CO2 34, O2 Sat 88.4 Treatment 10/23: 15% nrb - 4Lnc, IV Zofran, IV Dilaudid 1 mg x2, IV Lasix, IV Kcl, po Kcl 40 meq x1, IV MagSulfate, IV Cefepime, IV Cardizem, IV Amiodarone, IV Azithromycin. DNR. 10/24: O2 4Lnc, IV Kcl, IV Amiodarone, IV Dextrose, Atropine Sulfate sl Is there an additional diagnosis that is clinically appropriate for this patient? [ ] Acute Hypoxic Respiratory Failure [ ] Acute on Chronic Hypoxic Respiratory Failure [ ] Chronic Hypoxic Respiratory Failure [ ] Other Diagnosis, please specify [ ] Unable to determine (Template Last Revised: May 2020) unable to determine defer to admitting physician MTDD
[2020-10-24 21:47] LABS: Hemoglobin A1C 8.2 % (4.0-6.0)
--- NOTE | 2020-10-24 21:50 | P.DS ---
Providers Date of admission: 10/23/20 11:59 Expected date of discharge: 10/24/20 Attending physician: Raphael Carrington Consults: 10/23/20 11:58 Consult Physician Urgent Consulting Provider: Luis Patrick Consult Reason/Comments: acute symptomatic pancytopenia, active chemo Do you want consulting provider notified?: Yes 10/23/20 12:15 Consult Physician Urgent Consulting Provider: Jonh Lala Consult Reason/Comments: chf Do you want consulting provider notified?: Already Contacted 10/24/20 07:41 Consult Physician Routine Consulting Provider: Dasha Ma Consult Reason/Comments: Neutropenic, positive BC Do you want consulting provider notified?: Yes Primary care physician: Sruthi Duarte [facility] Course: Chief Complaint: Weak and tired History of presenting complaint: This is a very pleasant 70-year-old patient of Dr. Celia Duarte. Chronic stable medical conditions include coronary artery disease with stent, diabetes, hyper tension, hyperlipidemia. Patient diagnosed with small cell lung cancer with SVC compression treated with chemotherapy and radiation treatment diagnosis of July 2019. radiation [address] Dr. Stuart Abreu. Patient getting chemotherapy -last time she was about a week ago. Patient presents with overall decline. Decreased sleep. Increase oral intake. Weak diet. Weight loss. Using a walker. Lower extremity swelling. Just going downhill. Tired rundown. Relevant finding it difficult to speak and give a history. Keeps nodding off. Noted to have a fever to 101.2 in the ER. Denies any obvious urinary or pulmonary symptoms. October 24: Patient is continued to do poorly. Drops his blood pressure. Very lethargic. called in to say that patient to proceed with hospice. Hospice consulted. I did speak to the hospice team. Patient converted into GIP. 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 Patient has done drugs including cocaine and LSD, he quit them 20 years ago Family history: Multiple myeloma. Cancer Physical examination: VITAL SIGNS: 98.5, 103, 20, 11 7/75, 93% on 6 L GENERAL: cachectic, lethargic, decreased responsiveness EYES: Pupils equal. Conjunctiva pale. HEENT: External appearance of nose and ears normal, oral cavity grossly hortensia, decreased scalp hair l. NECK: JVD not raised; masses not palpable. HEART: First and second heart sounds are normal; edema present LUNGS: Respiratory rate increased, decreased breath sounds. ABDOMEN: Soft, nontender, liver spleen not palpable, no masses palpable. PSYCH: Tired lethargic, able to answer some questions. MUSCULOSKELETAL-evidence of arthritis in the hand . Loss of muscle mass INVESTIGATIONS, reviewed in the clinical context: October 24: WBC 0.2 hemoglobin 8 platelets 12 potassium 4.7 BUN 73 creatinine 1.9 WBC 0.1 hemoglobin 6.9 platelets 20 potassium 3 BUN 57 creatinine 1.3 to glucose 365 Lactic acid 2.8, repeat 1.9 magnesium 1.5 albumin 2.9 proBNP 4490 EKG tracing personally reviewed by me-sinus rhythm, ST segment depression in anterior leads, Chest x-ray film personally reviewed by me-possible left lower lobe infiltrate Assessment and plan: -Left lower lobe pneumonia, in immunosuppressed patient Start cefepime 2 g every 12. Blood culture -Coronary artery disease with stent Aspirin 81 mg, Plavix 75 mg, Lopressor 25 mg twice a day -Chronic insomnia from medical condition Ambien 5 mg daily at bedtime -Acute kidney injury likely prerenal Creatinine was 0.9 on October 08. Now 1.3 . IV fluids -Severe hypokalemia Replace - hypomagnesemia Magnesium supplement -Diabetes mellitus type 2, on oral hypoglycemic Follow Accu-Cheks. -Hyperlipidemia Lipitor 40 mg daily -Essential hypertension Blood pressure in the lower side. Hold off MIROSLAVA inhibitor. Lopressor 25 mg twice a day -Small cell lung cancer with SVC compression treated with chemotherapy and radiation Consult oncology -Primary osteoarthritis Pain medications as needed -Chronic gait dysfunction and medical debility from underlying malignancy Walker, fall precautions -COPD in a smoker DuoNeb -Pancytopenia from chemotherapy Consultants hematology -Moderate protein calorie malnutrition, from decreased oral intake Nutritional supplements -Lower extremity DVT edema combination of anemia and severe hypoalbuminemia WAYNE stockings -DNR Disposition: GIP/hospice Plan - Discharge Summary Discharge Rx Participant: Yes New Discharge Prescriptions: No Action lisinopriL [Zestril] 10 mg PO DAILY Clopidogrel [Plavix] 75 mg PO DAILY Metoprolol Tartrate [Lopressor] 50 mg PO BID metFORMIN HCL [Glucophage] 1,000 mg PO BID Atorvastatin [Lipitor] 40 mg PO DAILY Fish Oil/Dha/Epa [Fish Oil 1,200 mg Fish Oil] 1 cap PO DAILY LORazepam [Ativan] 1 mg PO Q6H PRN PRN Reason: Nausea Zolpidem Tartrate [Ambien] 10 mg PO HS Gabapentin 300 mg PO TID Albuterol Inhaler [Ventolin Hfa Inhaler] 2 puff INHALATION RT-Q6H PRN PRN Reason: Shortness Of Breath Aspirin EC [Ecotrin] 325 mg PO DAILY Furosemide [Lasix] 40 mg PO DAILY Morphine Sulfate ER [Ms Contin] 15 mg PO Q8H Potassium Chloride ER [K-Dur 10] 10 meq PO DAILY Discharge Medication List Clopidogrel [Plavix] 75 mg PO DAILY 01/11/14 [History] lisinopriL [Zestril] 10 mg PO DAILY 01/11/14 [History] Atorvastatin [Lipitor] 40 mg PO DAILY 07/06/19 [History] Fish Oil/Dha/Epa [Fish Oil 1,200 mg Fish Oil] 1 cap PO DAILY 07/06/19 [History] Metoprolol Tartrate [Lopressor] 50 mg PO BID 07/06/19 [History] metFORMIN HCL [Glucophage] 1,000 mg PO BID 07/06/19 [History] LORazepam [Ativan] 1 mg PO Q6H PRN 09/14/19 [History] Zolpidem Tartrate [Ambien] 10 mg PO HS 09/14/19 [History] Gabapentin 300 mg PO TID 02/05/20 [History] Albuterol Inhaler [Ventolin Hfa Inhaler] 2 puff INHALATION RT-Q6H PRN 10/08/20 [History] Aspirin EC [Ecotrin] 325 mg PO DAILY 10/23/20 [History] Furosemide [Lasix] 40 mg PO DAILY 10/23/20 [History] Morphine Sulfate ER [Ms Contin] 15 mg PO Q8H 10/23/20 [History] Potassium Chloride ER [K-Dur 10] 10 meq PO DAILY 10/23/20 [History] Follow up Appointment(s)/Referral(s): Ana Antunez MD [STAFF PHYSICIAN] - 2 Weeks Sruthi Duarte MD [Primary Care Provider] - 1-2 days Discharge Disposition: [facility] TO [facility]
--- NOTE | 2020-10-24 22:07 | P.CONS ---
History of Present Illness - Reason for Consult Consult date: 10/23/20 Lung Cancer - Sepsis - History of Present Illness Pawan is well known to our practive originally presenting with presented with neck & face swelling mild SOB, no chest pain. He was evaluated by PCP, referred to Dermatology, 911 telecommunicator, cardiology and finally ENT where CT Scan of chest ordered & done at [facility] on 06/29/2019 revealing [id number] cm mediastinal mass with SVC compression. The patient reported weight loss of 11 lbs, denies hemoptysis, denied any chest or visceral pain. 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 Father had multiple Myleoma, brother of Leukemia. He has been most recently on treatment with Topotecan, requiring frequent transfusions. He is now admitted with concern of sepsis, severe symptomatic anemia. He did receive neulasta on 10/20/20 therefore no additional growth factor needed at this time to assist in the acute picture. Diaz cultures pending, he is definitely not himself during interview today. Appears acutely on chronically ill. Increasing his overall oxygen demand. Overall prognosis is not good, patient appears to be dismal and hospice comfort care is appropriate. 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 PET scan Past Anesthesia/Blood Transfusion Reactions: No Reported Reaction Date of Last Stent Placement:: 2013 Past Psychological History: Anxiety Smoking Status: Current every day smoker Past Alcohol Use History: None Reported Past Drug Use History: None Reported - Past Family History Father Family Medical History: Cancer Additional Family Medical History / Comment(s): AT 84. MULTIPLE MYELOMA. Mother Family Medical History: Dementia Additional Family Medical History / Comment(s): AT AGE 85 Brother(s) Family Medical History: Cancer Additional Family Medical History / Comment(s): LEUKEMIA. Medications and Allergies Home Medications Medication Instructions Recorded Confirmed Type Clopidogrel [Plavix] 75 mg PO DAILY 01/11/14 10/24/20 History lisinopriL [Zestril] 10 mg PO DAILY 01/11/14 10/24/20 History Atorvastatin [Lipitor] 40 mg PO DAILY 07/06/19 10/24/20 History Fish Oil/Dha/Epa [Fish Oil 1,200 1 cap PO DAILY 07/06/19 10/24/20 History mg Fish Oil] Metoprolol Tartrate [Lopressor] 50 mg PO BID 07/06/19 10/24/20 History metFORMIN HCL [Glucophage] 1,000 mg PO BID 07/06/19 10/24/20 History LORazepam [Ativan] 1 mg PO Q6H PRN 09/14/19 10/24/20 History Zolpidem Tartrate [Ambien] 10 mg PO HS 09/14/19 10/24/20 History Gabapentin 300 mg PO TID 02/05/20 10/24/20 History Albuterol Inhaler [Ventolin Hfa 2 puff INHALATION RT-Q6H PRN 10/08/20 10/24/20 History Inhaler] Aspirin EC [Ecotrin] 325 mg PO DAILY 10/23/20 10/24/20 History Furosemide [Lasix] 40 mg PO DAILY 10/23/20 10/24/20 History Morphine Sulfate ER [Ms Contin] 15 mg PO Q8H 10/23/20 10/24/20 History Potassium Chloride ER [K-Dur 10] 10 meq PO DAILY 10/23/20 10/24/20 History Allergies Allergy/AdvReac Type Severity Reaction Status Date / Time No Known Allergies Allergy Verified 10/23/20 12:14 Physical Exam Vitals: Vital Signs Temp Pulse Resp BP Pulse Ox 10/23/20 15:00 101.2 F H 105 H 20 126/60 91 L 10/23/20 14:01 98.6 F 104 H 20 131/73 92 L 10/23/20 13:51 98.6 F 104 H 20 117/64 93 L 10/23/20 12:14 96 18 92/64 97 10/23/20 11:42 97.8 F 96 18 106/64 10/23/20 11:12 97.9 F 98 20 132/72 94 L 10/23/20 11:02 97.9 F 101 H 20 133/70 91 L 10/23/20 10:37 97 20 117/69 94 L 10/23/20 09:42 102 H 22 112/62 98 10/23/20 07:54 99.3 F 105 H 24 118/68 99 Intake and Output 10/23/20 10/23/20 10/23/20 06:59 14:59 22:59 Intake Total 310 Balance 310 Intake: Blood Product 310 Rc As-1 Unit 310 [id number] Other: Weight 79.3 kg - Constitutional General appearance: mild distress - EENT Eyes: poor dentition ENT: hard of hearing - Respiratory Respiratory: bilateral: rhonchi - Cardiovascular Rhythm: irregularly irregular - Gastrointestinal General gastrointestinal: soft - Integumentary Integumentary: pale - Psychiatric lethargic Results CBC & Chem 7: 10/24/20 08:00 10/24/20 08:00 Labs: Abnormal Lab Results - Last 24 Hours (Table) 10/23/20 10/23/20 10/23/20 Range/Units 08:08 08:08 08:08 WBC 0.1 L* (3.8-10.6) k/uL RBC 2.02 L (4.30-5.90) m/uL Hgb 6.9 L* D (13.0-17.5) gm/dL Hct 20.9 L (39.0-53.0) % MCV 103.3 H (80.0-100.0) fL RDW 19.2 H (11.5-15.5) % Plt Count 20 L D (150-450) k/uL APTT 21.8 L (22.0-30.0) sec Potassium 3.0 L (3.5-5.1) mmol/L Carbon Dioxide 32 H (22-30) mmol/L BUN 57 H (9-20) mg/dL Creatinine 1.32 H (0.66-1.25) mg/dL Glucose 365 H (74-99) mg/dL Plasma Lactic Acid Catrachito (0.7-2.0) mmol/L Calcium 7.9 L (8.4-10.2) mg/dL Magnesium 1.5 L (1.6-2.3) mg/dL Total Protein 5.3 L (6.3-8.2) g/dL Albumin 2.9 L (3.5-5.0) g/dL Crossmatch 10/23/20 10/23/20 Range/Units 08:08 09:30 WBC (3.8-10.6) k/uL RBC (4.30-5.90) m/uL Hgb (13.0-17.5) gm/dL Hct (39.0-53.0) % MCV (80.0-100.0) fL RDW (11.5-15.5) % Plt Count (150-450) k/uL APTT (22.0-30.0) sec Potassium (3.5-5.1) mmol/L Carbon Dioxide (22-30) mmol/L BUN (9-20) mg/dL Creatinine (0.66-1.25) mg/dL Glucose (74-99) mg/dL Plasma Lactic Acid Catrachito 2.8 H* (0.7-2.0) mmol/L Calcium (8.4-10.2) mg/dL Magnesium (1.6-2.3) mg/dL Total Protein (6.3-8.2) g/dL Albumin (3.5-5.0) g/dL Crossmatch See Detail Assessment and Plan (1) Metastatic lung cancer (metastasis from lung to other site) Status: Acute Code(s): C34.90 - MALIGNANT NEOPLASM OF UNSP PART OF UNSP BRONCHUS OR LUNG SNOMED Code(s): 43788400 (2) Sepsis Status: Acute Code(s): A41.9 - SEPSIS, UNSPECIFIED ORGANISM SNOMED Code(s): 54503008 (3) Pancytopenia due to antineoplastic chemotherapy Status: Acute Code(s): D61.810 - ANTINEOPLASTIC CHEMOTHERAPY INDUCED PANCYTOPENIA; T45.1X5A - ADVERSE EFFECT OF ANTINEOPLASTIC AND IMMUNOSUP DRUGS, INIT SNOMED Code(s): 860301842565809 Plan: Continue to await diaz katyaures Start Broad Spectrum Antibiotics in the interim Supportive transfusions Respiratory support CLose monitoring of all labs Overall malignancy prognosis is poor with intention of palliiative prolongation of life with chemo. Patient has understood from diagnosis and recently started on new therapy. - Hold chemo - no Growth factor indictated as he just received in office. Hospice/comfort measures at this time are appropriate, is on way to discuss further. Goal of care discussed with nursing, comfort measures only.
--- NOTE | 2020-11-05 07:40 | CDI ---
Documentation Clarification Form Date: 11/05/2020 07:37:11 AM From: Bettina Alexander CCS, CCDS Admit Date: 10/23/2020 11:59:00 AM Patient Name: Pawan Ryan Visit Number: [id number] Discharge Date: 10/24/2020 03:23:00 PM ATTENTION: The Clinical Documentation Specialists (CDI) and [facility] Coding Staff appreciate your assistance in clarifying documentation. Please respond to the clarification below the line at the bottom and electronically sign. The CDI & [facility] Coding staff will review the response and follow-up if needed. Please note: Queries are made part of the Legal Health Record. If you have any questions, please contact the author of this message via ITS. Dr. Raphael Carrington: Per the 10/24 Cardiology Consult, Hypoxic Respiratory Failure is documented without the acuity. Respiratory Failure is not documented elsewhere in the record. Please clarify the significance of the patient's documented Hypoxic Respiratory Failure. History/Risk Factors per the 10/23 H/P: CAD status post ID w/coronary stent, IDDM II, Hypertension, Hyperlipidemia, Diagnosed with Small Cell Lung Cancer with SVC Compression with metastatic disease to the Mediastinum & Brain, treated with Chemotherapy & Radiation treatments. Current Smoker. Clinical Indicators: Presented to the ED on 10/23 via EMS with SOB, Nausea & Vomiting. ED Clinical Impression: Hypokalemia, Hyperglycemia, Hypomagnesemia, Mediastinal Mass, Elevated BNP, Neutropenia 10/23 VS: T 99.3, P 105, R 24 (SOB, Accessory use), BP 118/68, PO 99 15% nr - 98 4Lnc 10/23 BMI: 19.8 10/24 ABG: pH 7.51, pCO2 41, pO2 49, HCO3 33, Total CO2 34, O2 Sat 88.4 Treatment 10/23: 15% nrb - 4Lnc, IV Zofran, IV Dilaudid 1 mg x2, IV Lasix, IV Kcl, po Kcl 40 meq x1, IV MagSulfate, IV Cefepime, IV Cardizem, IV Amiodarone, IV Azithromycin. DNR. 10/24: O2 4Lnc, IV Kcl, IV Amiodarone, IV Dextrose, Atropine Sulfate sl Is there an additional diagnosis that is clinically appropriate for this patient? [ ] Acute Hypoxic Respiratory Failure [ ] Acute on Chronic Hypoxic Respiratory Failure [ ] Chronic Hypoxic Respiratory Failure [ ] Respiratory Failure ruled out [ ] Other Diagnosis, please specify [ ] Unable to determine (Template Last Revised: May 2020) Acute hypoxic respiratory failure MTDD
--- NOTE | 2020-11-05 09:06 | CDI ---
Documentation Clarification Form Date: 11/05/2020 08:54:03 AM From: Charles Salinas Admit Date: 10/23/2020 11:59:00 AM Patient Name: Pawan Ryan Visit Number: [id number] Discharge Date: 10/24/2020 03:23:00 PM ATTENTION: The Clinical Documentation Specialists (CDI) and [facility] Coding Staff appreciate your assistance in clarifying documentation. Please respond to the clarification below the line at the bottom and electronically sign. The CDI & [facility] Coding staff will review the response and follow-up if needed. Please note: Queries are made part of the Legal Health Record. If you have any questions, please contact the author of this message via ITS. Dr. Raphael Carrington The patient presented with the following clinical indicators. Additional clarification regarding the etiology/cause of the clinical indicators is requested. Sepsis is mentioned in the consultation 10/23 but not elsewhere in the chart. Need to determine if it was ruled out. History/Risk Factors: PNA, pancytopenia due to chemotherapy Clinical Indicators: WBC: 0.1 Lactic acid: 2.8 Vitals signs: BP 126/60, pulse 105, temp 101.2 Treatment: ID Consult: for lung consolidation Antibiotics: Yes In your professional opinion, please clarify if these findings signify one of the following conditions: [ ] Sepsis POA [ ] Sepsis, Not POA [ ] Sepsis ruled ou [ ] SIRS, without underlying infectious process [ ] Other, please specify [ ] Unable to determine SIRS Criteria: 2 or more of the following may indicate SIRS -Temperature < 96.8F (36C) or > 101.0F (38.3C) -Heart Rate > 90 bpm -Respiratory Rate > 20 breaths/min or PaCO2 < 32 mmHg -White Blood Cell Count > 12,000 or < 4,000 cells/mm3 or > 10% bands (Template Last Reviewed: April 2020) Sepsis, POA MTDD
== END 2020-10-24 15:23 | disposition hospice, inpatient (51) | DRG 871 ==
LOC: EC 07:48 → 3SCARD 11:59
PROVIDERS: ADMIT Hospitalist; ATTEND Hospitalist
PROC: 30233N1 Transfusion of Nonautologous Red Blood Cells into Peripheral Vein, Percutaneous Approach (ICD-10-PCS; principal; 2020-10-23)
DX: A41.9 Sepsis, unspecified organism (principal); J18.9 Pneumonia, unspecified organism; D61.810 Antineoplastic chemotherapy induced pancytopenia; J96.01 Acute respiratory failure with hypoxia; C34.90 Malignant neoplasm of unspecified part of unspecified bronchus or lung; C79.31 Secondary malignant neoplasm of brain; D84.9 Immunodeficiency, unspecified; N17.9 Acute kidney failure, unspecified; J44.0 Chronic obstructive pulmonary disease with (acute) lower respiratory infection; E44.0 Moderate protein-calorie malnutrition; Z68.1 Body mass index [BMI] 19.9 or less, adult; I82.409 Acute embolism and thrombosis of unspecified deep veins of unspecified lower extremity; C78.1 Secondary malignant neoplasm of mediastinum; Z51.5 Encounter for palliative care; Z92.21 Personal history of antineoplastic chemotherapy; Z79.02 Long term (current) use of antithrombotics/antiplatelets; Z79.84 Long term (current) use of oral hypoglycemic drugs; Z79.82 Long term (current) use of aspirin; I25.10 Atherosclerotic heart disease of native coronary artery without angina pectoris; E11.649 Type 2 diabetes mellitus with hypoglycemia without coma; I25.2 Old myocardial infarction; M19.041 Primary osteoarthritis, right hand; M19.042 Primary osteoarthritis, left hand; Z95.5 Presence of coronary angioplasty implant and graft; E78.5 Hyperlipidemia, unspecified; Z80.6 Family history of leukemia; G47.01 Insomnia due to medical condition; E87.6 Hypokalemia; E83.42 Hypomagnesemia; Z92.3 Personal history of irradiation; T45.1X5A Adverse effect of antineoplastic and immunosuppressive drugs, initial encounter; Z98.1 Arthrodesis status; I11.0 Hypertensive heart disease with heart failure; I50.9 Heart failure, unspecified; I48.0 Paroxysmal atrial fibrillation; I95.9 Hypotension, unspecified; Z66 Do not resuscitate; I27.20 Pulmonary hypertension, unspecified; I08.0 Rheumatic disorders of both mitral and aortic valves; F17.210 Nicotine dependence, cigarettes, uncomplicated; F41.9 Anxiety disorder, unspecified; Z79.899 Other long term (current) drug therapy; Z96.651 Presence of right artificial knee joint
CPT/HCPCS: 36415; 36600; 71046; 80048; 80053; 82550; 82607; 82728; 82805; 83010; 83036; 83540; 83550; 83605; 83615; 83735; 83880; 84484; 85025; 85610; 85730; 86850; 86900; 86901; 86920; 87040; 87077; 87186; 93005; 96365; 96367; 96375; 96376; 99291

== ENCOUNTER 2020-10-24 15:00 | Inpatient (IN) | payer MEDICAID ==
[2020-10-24] MEDS ORDERED: ONDANSETRON 4 MG/2 ML VIAL IVP PRN (15:03)
[2020-10-24] MEDS ORDERED: ATROPINE OPHTH SOLN 1% 5ML BTL SUBLINGUAL PRN (15:03)
[2020-10-24] MEDS ORDERED: GLYCOPYRROLATE 0.2 MG/ML 2 ML VIAL IVP PRN (15:03)
[2020-10-24] MEDS ORDERED: ACETAMINOPHEN SUPPOSITORY 650 MG SUPP RECTAL PRN (15:03)
[2020-10-24] MEDS ORDERED: SCOPOLAMINE 1.5MG/72HR PATCH TRANSDERM SCH (15:15)
[2020-10-24] MEDS ORDERED: MORPHINE SULFATE (100 MG/2 ML) 100 MG in SODIUM CHLORIDE 0.9% 100 ML IV SCH (15:15)
[2020-10-24] MEDS: LORazepam 2 MG/ML INJ IV PRN ×2 (15:45→18:08)
[2020-10-24] MEDS: MORPHINE SULFATE 2 MG/ML SYRINGE IV PRN (15:45)
[2020-10-24 16:03] VITALS: BP 110/65; PULSE 96; TEMP 97.2
[2020-10-25] MEDS: MORPHINE SULFATE 2 MG/ML SYRINGE IV PRN (01:01)
[2020-10-25 08:16] VITALS: RESP 8
--- NOTE | 2020-10-25 20:54 | P.DS ---
Providers Date of admission: 10/24/20 15:37 Expected date of discharge: 10/25/20 Attending physician: Raphael Carrington Primary care physician: Sruthi Duarte [facility] Course: Patient admitted to [facility] for hospice. For symptom control. Comfort Care set was initiated. Including morphine. Oxygen. Family present. Patient was short of breath. Small cell lung cancer with pneumonia. Patient . Cause of : Small cell lung cancer. Plan - Discharge Summary New Discharge Prescriptions: Discontinued lisinopriL [Zestril] 10 mg PO DAILY Clopidogrel [Plavix] 75 mg PO DAILY Metoprolol Tartrate [Lopressor] 50 mg PO BID metFORMIN HCL [Glucophage] 1,000 mg PO BID Atorvastatin [Lipitor] 40 mg PO DAILY Fish Oil/Dha/Epa [Fish Oil 1,200 mg Fish Oil] 1 cap PO DAILY LORazepam [Ativan] 1 mg PO Q6H PRN PRN Reason: Nausea Zolpidem Tartrate [Ambien] 10 mg PO HS Gabapentin 300 mg PO TID Albuterol Inhaler [Ventolin Hfa Inhaler] 2 puff INHALATION RT-Q6H PRN PRN Reason: Shortness Of Breath Aspirin EC [Ecotrin] 325 mg PO DAILY Furosemide [Lasix] 40 mg PO DAILY Morphine Sulfate ER [Ms Contin] 15 mg PO Q8H Potassium Chloride ER [K-Dur 10] 10 meq PO DAILY Discharge Disposition: - Preliminary Cause of Preliminary Cause of : Lung cancer
== END 2020-10-25 11:53 | disposition expired | DRG 951 ==
LOC: 3SCARD 15:37
PROVIDERS: ADMIT Hospitalist; ATTEND Hospitalist
DX: Z51.5 Encounter for palliative care (principal); J18.9 Pneumonia, unspecified organism; D61.810 Antineoplastic chemotherapy induced pancytopenia; C34.90 Malignant neoplasm of unspecified part of unspecified bronchus or lung; N17.9 Acute kidney failure, unspecified; E44.0 Moderate protein-calorie malnutrition; I87.1 Compression of vein; Z68.1 Body mass index [BMI] 19.9 or less, adult; E11.9 Type 2 diabetes mellitus without complications; Z66 Do not resuscitate; E78.5 Hyperlipidemia, unspecified; I25.10 Atherosclerotic heart disease of native coronary artery without angina pectoris; I10 Essential (primary) hypertension; I25.2 Old myocardial infarction; E87.6 Hypokalemia; E83.42 Hypomagnesemia; M19.042 Primary osteoarthritis, left hand; M19.041 Primary osteoarthritis, right hand; R26.9 Unspecified abnormalities of gait and mobility; T45.1X5A Adverse effect of antineoplastic and immunosuppressive drugs, initial encounter; F51.04 Psychophysiologic insomnia; Z79.84 Long term (current) use of oral hypoglycemic drugs; Z79.02 Long term (current) use of antithrombotics/antiplatelets; Z79.82 Long term (current) use of aspirin; Z79.891 Long term (current) use of opiate analgesic; Z79.899 Other long term (current) drug therapy; Z95.5 Presence of coronary angioplasty implant and graft; Z92.3 Personal history of irradiation; Z92.21 Personal history of antineoplastic chemotherapy; Z90.89 Acquired absence of other organs; Z96.651 Presence of right artificial knee joint; Z87.39 Personal history of other diseases of the musculoskeletal system and connective tissue; Z98.1 Arthrodesis status; Z87.820 Personal history of traumatic brain injury; Z98.890 Other specified postprocedural states; Z80.7 Family history of other malignant neoplasms of lymphoid, hematopoietic and related tissues; Z81.8 Family history of other mental and behavioral disorders; Z80.6 Family history of leukemia